=== PATIENT | male | born 1955 | race African-American/Black ===

== ENCOUNTER 2017-10-14 09:51 | Inpatient (IN) | payer MEDICAID ==
[~2017-10-14] VITALS: Ht 167.6 cm; Wt 57.2 kg
[~2017-10-14 09:51] MED LIST: ASPI-1160 PO; CLOP75TA16 PO; FURO-151 PO; LOSA25TA3 PO
[2017-10-14] MEDS ORDERED: IPRATROPIUM BROMIDE (0.02%) 0.5MG/2.5ML NEB HHN STA (10:04)
[2017-10-14] MEDS ORDERED: METHYLPREDNISOLONE SOD SUCC 125 MG/2 ML VIAL IV STA (10:04)
[2017-10-14] MEDS ORDERED: ASPIRIN 81MG TABLET PO STA (10:04)
[2017-10-14] MEDS ORDERED: ALBUTEROL (0.083%) 2.5MG/3ML NEB HHN STA (10:04)
[2017-10-14] MEDS ORDERED: ALBUTEROL (0.5%) 2.5MG/0.5ML NEB HHN ONE (10:19)
[2017-10-14 10:45] LABS: BASOPHILS % 0.8 % (0.0-2.0); EOSINOPHILS % 0.9 % (0.0-5.0); HEMATOCRIT. 40.9 % (42.0-52.0); LYMPHOCYTES % 23.7 % (20.0-50.0); MEAN CORPUSCULAR HEMOGLOBIN 25.9 pg (28.0-32.0); MEAN CORPUSCULAR VOLUME 81.5 fL (80.0-94.0); MEAN PLATELET VOLUME 10.3 fl (7.4-10.4); NEUTROPHILS % 67.6 % (40.0-76.0); PLATELET 153 x1000/uL (130-400); RED BLOOD CELL COUNT 5.02 mill/uL (4.7-6.1); RED CELL DISTRIBUTION WIDTH 15.2 % (11.6-14.6)
[2017-10-14 11:00] LABS: CHLORIDE 109 mEq/L (98-107)
[2017-10-14 11:14] LABS: INR 1.1; PARTIAL THROMBOPLASTIN TIME 26.9 sec (23.4-31.0); PROTHROMBIN TIME 11.6 sec (9.4-11.6)
[2017-10-14] MEDS ORDERED: FUROSEMIDE 40MG/4ML VIAL IV STA (11:16)
[2017-10-14] MEDS ORDERED: NITROGLYCERIN OINT 1GM/INCH UDPKT TD STA (11:16)
[2017-10-14] MEDS ORDERED: ENOXAPARIN 80MG/0.8ML SYR SUBCUT ONE (12:15)
[2017-10-14] MEDS ORDERED: CLONIDINE 0.1MG TABLET PO PRN (12:15)
[2017-10-14] MEDS ORDERED: DOCUSATE SODIUM 100MG CAPSULE PO PRN (12:15)
[2017-10-14] MEDS ORDERED: GUAIFENESIN 200MG/10ML SUGAR FREE UDC PO PRN (12:15)
[2017-10-14] MEDS ORDERED: ONDANSETRON HCL 4MG/2ML INJ IV PRN (12:15)
[2017-10-14] MEDS ORDERED: MAGNESIUM/ALUMINUM HYDROXIDE/SIMETHICONE 30ML UDC PO PRN (12:15)
[2017-10-14] MEDS ORDERED: ACETAMINOPHEN 325MG TABLET PO PRN (12:15)
[2017-10-14] MEDS ORDERED: DIPHENHYDRAMINE 50MG/ML VIAL IV PRN (12:15)
[2017-10-14] MEDS ORDERED: MORPHINE SULFATE 4 MG/ML CPJ (NOT FOR IM USE) IV PRN (12:15)
[2017-10-14] MEDS ORDERED: LORAZEPAM 0.5MG TABLET PO PRN (12:15)
[2017-10-14] MEDS ORDERED: NA PHOS,M-B/NA PHOS,DI-BA ENEMA 118ML PR PRN (12:15)
[2017-10-14 15:28] VITALS: BP 117/62
[2017-10-14 15:30] VITALS: BP 117/62
[2017-10-14 16:48] LABS: CHLORIDE 110 mEq/L (98-107)
[2017-10-14] MEDS: ENOXAPARIN 40MG/0.4ML SYR SUBCUT SCH (17:13)
[2017-10-14] MEDS: METHYLPREDNISOLONE SOD SUCC 125 MG/2 ML VIAL IV SCH (17:24)
[2017-10-14] MEDS ORDERED: LEVOFLOXACIN 500MG PREMIX 100 ML IV SCH (18:00)
[2017-10-14] MEDS: HYDROCODONE/ACETAMINOPHEN 5/325MG TABLET PO PRN (19:10)
[2017-10-14 20:00] VITALS: BP 126/70
[2017-10-14] MEDS: FAMOTIDINE 20MG TABLET PO SCH (20:39)
[2017-10-14 23:09] LABS: CLARITY URINE CLEAR (CLEAR); COLOR URINE YELLOW (YELLOW); KETONES URINE TRACE (NEGATIVE); LEUKOCYTE ESTERASE URINE NEGATIVE (NEGATIVE); NITRITE URINE NEGATIVE (NEGATIVE); OCCULT BLOOD URINE NEGATIVE (NEGATIVE); PH URINE 5.5 (4.5-8.0); PROTEIN URINE NEGATIVE (NEGATIVE); SPECIFIC GRAVITY URINE 1.031 (1.005-1.030); UROBILINOGEN URINE 0.2 E.U./dL (0.2-1.0)
[2017-10-14 23:19] LABS: *AMPHETAMINES SCREEN URINE NEGATIVE (NEGATIVE); *BARBITURATES SCREEN URINE NEGATIVE (NEGATIVE); *BENZODIAZEPINES SCREEN URINE NEGATIVE (NEGATIVE); *COCAINE SCREEN URINE PRESUMTIVE POSITIVE (NEGATIVE); CANNABINOID URINE SCREEN NEGATIVE (NEGATIVE); METHADONE URINE SCREEN NEGATIVE (NEGATIVE); OPIATES URINE SCREEN NEGATIVE (NEGATIVE); PHENCYCLIDINE URINE SCREEN NEGATIVE (NEGATIVE)
[2017-10-15] VITALS: BP 118/62
[2017-10-15] MEDS: METHYLPREDNISOLONE SOD SUCC 125 MG/2 ML VIAL IV SCH ×3 (01:24→12:18)
[2017-10-15 04:05] VITALS: BP 108/76
[2017-10-15] MEDS: IPRATROPIUM/ALBUTEROL 0.5-3(2.5)MG/3ML NEB INH PRN ×2 (05:47→08:27)
[2017-10-15] MEDS: BUDESONIDE 0.5MG/2ML NEB HHN SCH ×3 (05:47→20:21)
[2017-10-15 07:37] LABS: HEMATOCRIT. 35.6 % (42.0-52.0); HEMOGLOBIN. 11.7 g/dL (14.0-18.0); MEAN CORPUSCULAR HEMOGLOBIN 26.5 pg (28.0-32.0); MEAN CORPUSCULAR VOLUME 80.8 fL (80.0-94.0); MEAN PLATELET VOLUME 10.4 fl (7.4-10.4); PLATELET 147 x1000/uL (130-400); RED CELL DISTRIBUTION WIDTH 14.9 % (11.6-14.6)
[2017-10-15 07:56] LABS: CHLORIDE 108 mEq/L (98-107); HDL CHOLESTEROL 66 mg/dL (40-59); LDL CHOLESTEROL 93 mg/dL (5-100)
[2017-10-15 08:00] VITALS: BP 124/86
[2017-10-15] MEDS: HYDROCODONE/ACETAMINOPHEN 5/325MG TABLET PO PRN (08:36)
[2017-10-15] MEDS: FUROSEMIDE 40MG/4ML VIAL IV SCH (08:40)
[2017-10-15] MEDS: FAMOTIDINE 20MG TABLET PO SCH ×2 (09:22→20:28)
[2017-10-15] MEDS: ASPIRIN 81MG EC TABLET PO SCH (09:22)
[2017-10-15 12:00] VITALS: BP 102/61
[2017-10-15 14:58] LABS: PLATELET ESTIMATE NORMAL
[2017-10-15 16:00] VITALS: BP 113/75
[2017-10-15] MEDS: ENOXAPARIN 40MG/0.4ML SYR SUBCUT SCH (16:18)
[2017-10-15] MEDS: METHYLPREDNISOLONE SOD SUCC 40 MG/ML VIAL IV SCH (18:05)
[2017-10-15 20:00] VITALS: BP 102/59
[2017-10-15] MEDS: LEVOFLOXACIN 500MG PREMIX 100 ML IV SCH (20:29)
[2017-10-16] VITALS (7 sets, daily range): BP systolic 104–125; BP diastolic 61–89
[2017-10-16] MEDS: METHYLPREDNISOLONE SOD SUCC 40 MG/ML VIAL IV SCH ×2 (01:32→10:06)
[2017-10-16] MEDS: BUDESONIDE 0.5MG/2ML NEB HHN SCH ×2 (08:03→21:08)
[2017-10-16] MEDS: ASPIRIN 81MG EC TABLET PO SCH (10:06)
[2017-10-16] MEDS: FAMOTIDINE 20MG TABLET PO SCH ×2 (10:06→21:43)
[2017-10-16] MEDS: FUROSEMIDE 40MG/4ML VIAL IV SCH (10:07)
[2017-10-16] MEDS: PREDNISONE 20MG TABLET PO SCH (17:11)
[2017-10-16] MEDS: ENOXAPARIN 40MG/0.4ML SYR SUBCUT SCH (17:13)
[2017-10-16] MEDS: LEVOFLOXACIN 500MG PREMIX 100 ML IV SCH (21:43)
[2017-10-17 00:07] VITALS: BP 101/68
[2017-10-17 04:28] VITALS: BP 111/71
[2017-10-17 07:02] LABS: BASOPHILS % 0.1 % (0.0-2.0); HEMATOCRIT. 38.5 % (42.0-52.0); HEMOGLOBIN. 12.7 g/dL (14.0-18.0); MEAN CORPUSCULAR HEMOGLOBIN 26.7 pg (28.0-32.0); MONOCYTES % 7.8 % (2.0-8.0); NEUTROPHILS % 83.1 % (40.0-76.0); PLATELET 157 x1000/uL (130-400); RED BLOOD CELL COUNT 4.76 mill/uL (4.7-6.1); RED CELL DISTRIBUTION WIDTH 15.2 % (11.6-14.6)
[2017-10-17 07:20] LABS: CHLORIDE 104 mEq/L (98-107)
[2017-10-17] MEDS: BUDESONIDE 0.5MG/2ML NEB HHN SCH (08:10)
[2017-10-17] MEDS: IPRATROPIUM/ALBUTEROL 0.5-3(2.5)MG/3ML NEB INH PRN (08:11)
[2017-10-17] MEDS: ASPIRIN 81MG EC TABLET PO SCH (08:42)
[2017-10-17] MEDS: FAMOTIDINE 20MG TABLET PO SCH (08:42)
[2017-10-17] MEDS: PREDNISONE 20MG TABLET PO SCH (08:43)
[2017-10-17] MEDS: FUROSEMIDE 40MG/4ML VIAL IV SCH (08:43)
[2017-10-17 13:45] VITALS: BP 105/65
[2018-01-22] MEDS ORDERED: ALBU2.5V13 NEB (12:15)
[2018-01-22] MEDS ORDERED: P50 PO (12:15)
[2018-01-22] MEDS ORDERED: FLUT1DIS3 INH (12:15)
[2018-01-22] MEDS ORDERED: LEVO500T2 PO (17:38)
[2018-05-08] MEDS ORDERED: FURO10VI3 PO (12:01)
== END 2017-10-17 15:00 | disposition home or self-care (01) | DRG 816 ==
LOC: ER 10:09 → 6WST 11:44 → EDBEDREQ 11:45 → ENRESERV 13:18 → 6WST 15:18
PROVIDERS: ADMIT Internal Medicine; ATTEND Internal Medicine
DX: T40.5X1A Poisoning by cocaine, accidental (unintentional), initial encounter (principal); J96.00 Acute respiratory failure, unspecified whether with hypoxia or hypercapnia; I50.43 Acute on chronic combined systolic (congestive) and diastolic (congestive) heart failure; E46 Unspecified protein-calorie malnutrition; J68.0 Bronchitis and pneumonitis due to chemicals, gases, fumes and vapors; I11.0 Hypertensive heart disease with heart failure; E11.65 Type 2 diabetes mellitus with hyperglycemia; F17.200 Nicotine dependence, unspecified, uncomplicated; I25.10 Atherosclerotic heart disease of native coronary artery without angina pectoris; Z79.899 Other long term (current) drug therapy; I25.2 Old myocardial infarction; Z79.82 Long term (current) use of aspirin; Y92.89 Other specified places as the place of occurrence of the external cause; Z68.20 Body mass index [BMI] 20.0-20.9, adult
CPT/HCPCS: 36415; 71045; 80048; 80061; 80305; 83036; 83880; 84484; 93005; 94640; 96374; 99291; J1650; J1940; J1956; J2920; J2930; J7040; J7512; J7611; J7620; J7626

== ENCOUNTER 2018-05-31 13:05 | Inpatient (IN) | payer MEDICAID ==
[~2018-05-31] VITALS: Ht 175.3 cm; Wt 59.0 kg
[~2018-05-31 13:05] MED LIST changes: +ALBU2.5V13 NEB; +FLUT1DIS3 INH; -FURO-151 PO; +FURO10VI3 PO; -LOSA25TA3 PO
[2018-05-31] MEDS ORDERED: IPRATROPIUM BROMIDE (0.02%) 0.5MG/2.5ML NEB HHN STA (13:42)
[2018-05-31] MEDS ORDERED: METHYLPREDNISOLONE SOD SUCC 125 MG/2 ML VIAL IV STA (13:42)
[2018-05-31] MEDS ORDERED: ALBUTEROL (0.083%) 2.5MG/3ML NEB HHN STA (13:42)
[2018-05-31] MEDS ORDERED: ASPIRIN 81MG TABLET PO ONE (15:00)
[2018-05-31] MEDS ORDERED: FUROSEMIDE 20MG/2ML VIAL IVP ONE (15:00)
[2018-05-31 15:20] LABS: CHLORIDE 109 mEq/L (98-107)
[2018-05-31 15:24] LABS: BASOPHILS % 0.9 % (0.0-2.0); EOSINOPHILS % 2.4 % (0.0-5.0); HEMATOCRIT. 33.8 % (42.0-52.0); LYMPHOCYTES % 20.9 % (20.0-50.0); MEAN CORPUSCULAR HEMOGLOBIN 26.1 pg (28.0-32.0); MEAN CORPUSCULAR VOLUME 79.9 fL (80.0-94.0); MEAN PLATELET VOLUME 9.9 fl (7.4-10.4); MONOCYTES % 8.4 % (2.0-8.0); NEUTROPHILS % 67.4 % (40.0-76.0); PLATELET 138 x1000/uL (130-400); RED BLOOD CELL COUNT 4.23 mill/uL (4.7-6.1); RED CELL DISTRIBUTION WIDTH 16.2 % (11.6-14.6)
[2018-05-31] MEDS ORDERED: KCL 20MEQ/100ML PREMIX 100 ML IV ONE (16:00)
[2018-05-31] MEDS ORDERED: POTASSIUM CHLORIDE 20MEQ TABLET SR PO ONE (16:00)
[2018-05-31 18:15] VITALS: BP 115/81
[2018-05-31 20:00] VITALS: BP 106/61
[2018-05-31] MEDS ORDERED: MAGNESIUM/ALUMINUM HYDROXIDE/SIMETHICONE 30ML UDC PO PRN (21:00)
[2018-05-31] MEDS ORDERED: ACETAMINOPHEN 325MG TABLET PO PRN (21:00)
[2018-05-31] MEDS ORDERED: CLONIDINE 0.1MG TABLET PO PRN (21:00)
[2018-05-31] MEDS ORDERED: MAGNESIUM HYDROXIDE 400MG/5ML 30ML UDC PO PRN (21:00)
[2018-05-31] MEDS ORDERED: HYDROCODONE/ACETAMINOPHEN 5/325MG TABLET PO PRN (21:00)
[2018-05-31] MEDS ORDERED: GUAIFENESIN 200MG/10ML SUGAR FREE UDC PO PRN (21:00)
[2018-05-31] MEDS ORDERED: TEMAZEPAM 15MG CAPSULE PO PRN (21:00)
[2018-05-31] MEDS ORDERED: ONDANSETRON HCL 4MG/2ML INJ IV PRN (21:00)
[2018-05-31] MEDS ORDERED: DIPHENHYDRAMINE 50MG/ML VIAL IV PRN (21:00)
[2018-05-31] MEDS ORDERED: IPRATROPIUM/ALBUTEROL 0.5-3(2.5)MG/3ML NEB INH PRN (21:00)
[2018-05-31] MEDS ORDERED: MAGNESIUM 2 G PREMIX 50 ML IV ONE (21:30)
[2018-05-31] MEDS ORDERED: FUROSEMIDE 40MG/4ML VIAL IVP SCH (21:30)
[2018-05-31] MEDS: ATORVASTATIN CALCIUM 20MG TABLET PO SCH (22:09)
[2018-05-31] MEDS: POTASSIUM CHLORIDE 20MEQ TABLET SR PO SCH ×3 (22:10→23:16)
[2018-05-31] MEDS: GUAIFENESIN 600MG ER TABLET PO SCH (22:10)
[2018-05-31] MEDS: FAMOTIDINE 20MG TABLET PO SCH (22:10)
[2018-05-31] MEDS: ENOXAPARIN 40MG/0.4ML SYR SUBCUT SCH (22:11)
[2018-05-31] MEDS: SODIUM CHLORIDE 0.9% INJ 3ML FLUSH IVF SCH (22:11)
[2018-05-31] MEDS: METHYLPREDNISOLONE SOD SUCC 40 MG/ML VIAL IV SCH (23:16)
[2018-06-01] VITALS: BP 94/60
[2018-06-01] MEDS: LEVOFLOXACIN 500MG PREMIX 100 ML IV SCH ×2 (00:11→21:22)
[2018-06-01] MEDS: BUDESONIDE 0.5MG/2ML NEB HHN SCH ×3 (02:12→20:44)
[2018-06-01] MEDS: IPRATROPIUM/ALBUTEROL 0.5-3(2.5)MG/3ML NEB HHN SCH ×4 (02:13→20:44)
[2018-06-01 04:08] VITALS: BP 112/72
[2018-06-01 06:09] LABS: BASOPHILS % 0.1 % (0.0-2.0); HEMATOCRIT. 33.7 % (42.0-52.0); HEMOGLOBIN. 11.1 g/dL (14.0-18.0); LYMPHOCYTES % 7.5 % (20.0-50.0); MEAN CORPUSCULAR VOLUME 79.1 fL (80.0-94.0); MEAN PLATELET VOLUME 10.5 fl (7.4-10.4); MONOCYTES % 3.1 % (2.0-8.0); NEUTROPHILS % 89.3 % (40.0-76.0); PLATELET 136 x1000/uL (130-400); RED BLOOD CELL COUNT 4.26 mill/uL (4.7-6.1)
[2018-06-01 06:15] LABS: CHLORIDE 113 mEq/L (98-107)
[2018-06-01] MEDS: FUROSEMIDE 40MG/4ML VIAL IVP SCH ×2 (06:15→17:49)
[2018-06-01] MEDS: SODIUM CHLORIDE 0.9% INJ 3ML FLUSH IVF SCH ×3 (06:15→21:24)
[2018-06-01] MEDS: METHYLPREDNISOLONE SOD SUCC 40 MG/ML VIAL IV SCH ×3 (06:15→21:22)
[2018-06-01 07:42] VITALS: BP 119/88
[2018-06-01] MEDS: PROMETHAZINE/DEXTROMETHORPHAN 6.25-15MG/5ML BOTTLE 120ML PO PRN ×2 (08:48→17:49)
[2018-06-01] MEDS: CLOPIDOGREL 75MG TABLET PO SCH (08:48)
[2018-06-01] MEDS: GUAIFENESIN 600MG ER TABLET PO SCH ×2 (08:48→21:22)
[2018-06-01] MEDS: ASPIRIN 81MG EC TABLET PO SCH (08:48)
[2018-06-01] MEDS ORDERED: LOSARTAN POTASSIUM 25 MG TABLET PO SCH (09:00)
[2018-06-01] MEDS ORDERED: KETOROLAC 30MG/ML VIAL IV PRN (10:00)
[2018-06-01 12:00] VITALS: BP 104/68
[2018-06-01 16:00] VITALS: BP 108/73
[2018-06-01 17:32] LABS: CHLORIDE 110 mEq/L (98-107)
[2018-06-01 20:00] VITALS: BP 113/80
[2018-06-01] MEDS: FAMOTIDINE 20MG TABLET PO SCH (21:22)
[2018-06-01] MEDS: ATORVASTATIN CALCIUM 20MG TABLET PO SCH (21:22)
[2018-06-01] MEDS: ENOXAPARIN 40MG/0.4ML SYR SUBCUT SCH (21:23)
[2018-06-01 22:16] LABS: *BARBITURATES SCREEN URINE NEGATIVE (NEGATIVE); *BENZODIAZEPINES SCREEN URINE NEGATIVE (NEGATIVE); *COCAINE SCREEN URINE PRESUMTIVE POSITIVE (NEGATIVE); CANNABINOID URINE SCREEN NEGATIVE (NEGATIVE); METHADONE URINE SCREEN NEGATIVE (NEGATIVE); OPIATES URINE SCREEN NEGATIVE (NEGATIVE); PHENCYCLIDINE URINE SCREEN NEGATIVE (NEGATIVE)
[2018-06-01 22:17] LABS: *AMPHETAMINES SCREEN URINE NEGATIVE (NEGATIVE)
[2018-06-02] VITALS: BP 105/70
[2018-06-02] MEDS: IPRATROPIUM/ALBUTEROL 0.5-3(2.5)MG/3ML NEB HHN SCH ×4 (01:05→19:59)
[2018-06-02 04:00] VITALS: BP 115/87
[2018-06-02] MEDS: METHYLPREDNISOLONE SOD SUCC 40 MG/ML VIAL IV SCH ×3 (05:59→22:07)
[2018-06-02] MEDS: SODIUM CHLORIDE 0.9% INJ 3ML FLUSH IVF SCH ×3 (06:00→22:09)
[2018-06-02] MEDS: FUROSEMIDE 40MG/4ML VIAL IVP SCH ×2 (06:42→17:15)
[2018-06-02 06:48] LABS: HEMATOCRIT. 33.4 % (42.0-52.0); MEAN CORPUSCULAR HEMOGLOBIN 26.1 pg (28.0-32.0); MEAN CORPUSCULAR VOLUME 79.5 fL (80.0-94.0); MEAN PLATELET VOLUME 10.6 fl (7.4-10.4); PLATELET 151 x1000/uL (130-400); RED CELL DISTRIBUTION WIDTH 16.3 % (11.6-14.6)
[2018-06-02 08:21] LABS: CHLORIDE 106 mEq/L (98-107)
[2018-06-02] MEDS: BUDESONIDE 0.5MG/2ML NEB HHN SCH ×2 (08:31→19:58)
[2018-06-02] MEDS: CLOPIDOGREL 75MG TABLET PO SCH (09:05)
[2018-06-02] MEDS: LOSARTAN POTASSIUM 25 MG TABLET PO SCH (09:07)
[2018-06-02] MEDS: ASPIRIN 81MG EC TABLET PO SCH (09:07)
[2018-06-02] MEDS: GUAIFENESIN 600MG ER TABLET PO SCH ×2 (09:07→20:37)
[2018-06-02 09:20] LABS: PLATELET ESTIMATE NORMAL
[2018-06-02 12:00] VITALS: BP 103/77
[2018-06-02 16:00] VITALS: BP 104/66
[2018-06-02 20:00] VITALS: BP 102/65
[2018-06-02] MEDS: ATORVASTATIN CALCIUM 20MG TABLET PO SCH (20:37)
[2018-06-02] MEDS: LEVOFLOXACIN 500MG PREMIX 100 ML IV SCH (20:37)
[2018-06-02] MEDS: FAMOTIDINE 20MG TABLET PO SCH (20:37)
[2018-06-02] MEDS: ENOXAPARIN 40MG/0.4ML SYR SUBCUT SCH (20:37)
[2018-06-03] VITALS: BP 102/65
[2018-06-03] MEDS: IPRATROPIUM/ALBUTEROL 0.5-3(2.5)MG/3ML NEB HHN SCH ×2 (01:15→07:58)
[2018-06-03 04:00] VITALS: BP 104/67
[2018-06-03] MEDS: SODIUM CHLORIDE 0.9% INJ 3ML FLUSH IVF SCH ×2 (06:12→13:46)
[2018-06-03] MEDS: METHYLPREDNISOLONE SOD SUCC 40 MG/ML VIAL IV SCH ×2 (06:12→13:46)
[2018-06-03] MEDS: FUROSEMIDE 40MG/4ML VIAL IVP SCH (06:17)
[2018-06-03] MEDS: BUDESONIDE 0.5MG/2ML NEB HHN SCH (07:58)
[2018-06-03 08:00] VITALS: BP 100/61
[2018-06-03] MEDS: GUAIFENESIN 600MG ER TABLET PO SCH (08:59)
[2018-06-03] MEDS: CLOPIDOGREL 75MG TABLET PO SCH (08:59)
[2018-06-03] MEDS: ASPIRIN 81MG EC TABLET PO SCH (08:59)
[2018-06-03] MEDS: LOSARTAN POTASSIUM 25 MG TABLET PO SCH (09:00)
[2018-06-03] MEDS ORDERED: LOSA25TA12 MT (11:22)
[2018-06-03] MEDS ORDERED: ATOR20TA65 MT (11:22)
[2018-06-03 12:00] VITALS: BP 99/66
[2018-06-03 14:15] VITALS: BP 108/64
== END 2018-06-03 15:40 | disposition home or self-care (01) | DRG 139 ==
LOC: ER 13:05 → 6WST 16:21 → ENRESERV 17:07
PROVIDERS: ADMIT Internal Medicine; ATTEND Internal Medicine
DX: J18.9 Pneumonia, unspecified organism (principal); I50.23 Acute on chronic systolic (congestive) heart failure; E44.0 Moderate protein-calorie malnutrition; J44.0 Chronic obstructive pulmonary disease with (acute) lower respiratory infection; I42.0 Dilated cardiomyopathy; I11.0 Hypertensive heart disease with heart failure; J44.1 Chronic obstructive pulmonary disease with (acute) exacerbation; E78.00 Pure hypercholesterolemia, unspecified; F19.10 Other psychoactive substance abuse, uncomplicated; F14.90 Cocaine use, unspecified, uncomplicated; E87.6 Hypokalemia; F17.200 Nicotine dependence, unspecified, uncomplicated; I25.10 Atherosclerotic heart disease of native coronary artery without angina pectoris; Z82.49 Family history of ischemic heart disease and other diseases of the circulatory system; Z91.19 Patient's noncompliance with other medical treatment and regimen; Z79.51 Long term (current) use of inhaled steroids; Z79.82 Long term (current) use of aspirin; Z79.899 Other long term (current) drug therapy; Z68.1 Body mass index [BMI] 19.9 or less, adult
CPT/HCPCS: 36415; 71045; 80048; 80053; 80305; 83735; 83880; 84484; 85025; 93005; 93970; 94640; 96361; 96374; 99285; J1650; J1940; J1956; J2920; J2930; J3480; J7040; J7611; J7620; J7626

== ENCOUNTER 2018-06-11 06:13 | Inpatient (IN) | payer MEDICAID ==
[~2018-06-11] VITALS: Ht 167.6 cm; Wt 54.9 kg
[~2018-06-11 06:13] MED LIST changes: +ATOR20TA65 MT; +LOSA25TA12 MT
[2018-06-11] MEDS ORDERED: IPRATROPIUM BROMIDE (0.02%) 0.5MG/2.5ML NEB HHN STA (06:29)
[2018-06-11] MEDS ORDERED: MAGNESIUM 2 G PREMIX 50 ML IV STA (06:29)
[2018-06-11] MEDS ORDERED: METHYLPREDNISOLONE SOD SUCC 125 MG/2 ML VIAL IV STA (06:29)
[2018-06-11] MEDS ORDERED: ALBUTEROL (0.083%) 2.5MG/3ML NEB HHN STA (06:29)
[2018-06-11] MEDS ORDERED: FUROSEMIDE 40MG/4ML VIAL IVP ONE (06:30)
[2018-06-11] MEDS ORDERED: ASPIRIN 81MG TABLET PO ONE (07:00)
[2018-06-11 07:27] LABS: BASOPHILS % 0.4 % (0.0-2.0); EOSINOPHILS % 1.2 % (0.0-5.0); HEMATOCRIT. 33.8 % (42.0-52.0); HEMOGLOBIN. 10.9 g/dL (14.0-18.0); MEAN CORPUSCULAR VOLUME 80.1 fL (80.0-94.0); MONOCYTES % 8.4 % (2.0-8.0); PLATELET 165 x1000/uL (130-400); RED BLOOD CELL COUNT 4.21 mill/uL (4.7-6.1)
[2018-06-11 07:34] LABS: PARTIAL THROMBOPLASTIN TIME 27.3 sec (23.4-31.0); PROTHROMBIN TIME 10.5 sec (9.1-11.1)
[2018-06-11 07:42] LABS: CLARITY URINE CLEAR (CLEAR); COLOR URINE YELLOW (YELLOW); KETONES URINE NEGATIVE (NEGATIVE); LEUKOCYTE ESTERASE URINE NEGATIVE (NEGATIVE); NITRITE URINE NEGATIVE (NEGATIVE); OCCULT BLOOD URINE NEGATIVE (NEGATIVE); PROTEIN URINE NEGATIVE (NEGATIVE); SPECIFIC GRAVITY URINE 1.008 (1.005-1.030); UROBILINOGEN URINE 0.2 E.U./dL (0.2-1.0)
[2018-06-11 07:54] LABS: *AMPHETAMINES SCREEN URINE NEGATIVE (NEGATIVE); *BARBITURATES SCREEN URINE NEGATIVE (NEGATIVE); *BENZODIAZEPINES SCREEN URINE NEGATIVE (NEGATIVE); *COCAINE SCREEN URINE PRESUMTIVE POSITIVE (NEGATIVE); CANNABINOID URINE SCREEN NEGATIVE (NEGATIVE); METHADONE URINE SCREEN NEGATIVE (NEGATIVE); OPIATES URINE SCREEN NEGATIVE (NEGATIVE); PHENCYCLIDINE URINE SCREEN NEGATIVE (NEGATIVE)
[2018-06-11 07:55] LABS: CHLORIDE 112 mEq/L (98-107); ETHANOL BLOOD < 10 mg/dL
[2018-06-11] MEDS ORDERED: MEDICATION NOT ON FORMULARY EA (Fluticasone/Salmeterol (Advair 250-50 Diskus) 1 PUFF) INH SCH (10:15)
[2018-06-11 16:28] LABS: CREATINE KINASE MB FRACTION 1.8 ng/mL (0.5-3.6)
[2018-06-11] MEDS ORDERED: POTASSIUM CHLORIDE 20MEQ TABLET SR PO NR (16:36)
[2018-06-11] MEDS ORDERED: ONDANSETRON HCL 4MG/2ML INJ IV PRN (18:30)
[2018-06-11] MEDS ORDERED: ACETAMINOPHEN 325MG TABLET PO PRN (18:30)
[2018-06-11] MEDS ORDERED: IPRATROPIUM/ALBUTEROL 0.5-3(2.5)MG/3ML NEB INH PRN (18:30)
[2018-06-11] MEDS ORDERED: HYDROCODONE/ACETAMINOPHEN 5/325MG TABLET PO PRN (18:30)
[2018-06-11] MEDS ORDERED: LORAZEPAM 0.5MG TABLET PO PRN (18:30)
[2018-06-11] MEDS ORDERED: HYDROCODONE/ACETAMINOPHEN 10/325MG TABLET PO PRN (18:30)
[2018-06-11] MEDS ORDERED: DOCUSATE SODIUM 100MG CAPSULE PO PRN (19:02)
[2018-06-11] MEDS: ATORVASTATIN CALCIUM 20MG TABLET PO SCH (19:53)
[2018-06-11] MEDS: LOSARTAN POTASSIUM 25 MG TABLET PO SCH (19:53)
[2018-06-11 20:00] VITALS: BP 121/74
[2018-06-12 00:32] VITALS: BP 125/79
[2018-06-12 04:00] VITALS: BP 110/74
[2018-06-12 06:36] LABS: BASOPHILS % 0.4 % (0.0-2.0); EOSINOPHILS % 0.1 % (0.0-5.0); HEMATOCRIT. 32.1 % (42.0-52.0); HEMOGLOBIN. 10.5 g/dL (14.0-18.0); LYMPHOCYTES % 9.9 % (20.0-50.0); MEAN CORPUSCULAR HEMOGLOBIN 25.9 pg (28.0-32.0); MEAN CORPUSCULAR VOLUME 79.4 fL (80.0-94.0); MEAN PLATELET VOLUME 10.4 fl (7.4-10.4); MONOCYTES % 7.2 % (2.0-8.0); NEUTROPHILS % 82.4 % (40.0-76.0); PLATELET 171 x1000/uL (130-400); RED BLOOD CELL COUNT 4.05 mill/uL (4.7-6.1); RED CELL DISTRIBUTION WIDTH 16.1 % (11.6-14.6)
[2018-06-12 08:28] VITALS: BP 119/73
[2018-06-12] MEDS: CLOPIDOGREL 75MG TABLET PO SCH (08:30)
[2018-06-12] MEDS: LOSARTAN POTASSIUM 25 MG TABLET PO SCH (08:30)
[2018-06-12] MEDS: ASPIRIN 81MG TABLET PO SCH (08:31)
[2018-06-12] MEDS: ALBUTEROL (0.083%) 2.5MG/3ML NEB HHN SCH ×3 (08:35→15:15)
[2018-06-12] MEDS: BUDESONIDE 0.5MG/2ML NEB HHN SCH ×2 (08:35→21:14)
[2018-06-12] MEDS ORDERED: FUROSEMIDE 40MG/4ML VIAL IVP SCH (09:00)
[2018-06-12 09:37] LABS: CHLORIDE 104 mEq/L (98-107)
[2018-06-12 12:00] VITALS: BP 112/73
[2018-06-12 16:00] VITALS: BP 117/79
[2018-06-12] MEDS: FUROSEMIDE 40MG/4ML VIAL IVP SCH (17:15)
[2018-06-12] MEDS ORDERED: BENZONATATE 100MG CAPSULE PO PRN (17:30)
[2018-06-12 20:00] VITALS: BP 108/73
[2018-06-12] MEDS: GUAIFENESIN 600MG ER TABLET PO SCH (20:25)
[2018-06-12] MEDS: LEVOFLOXACIN 500MG PREMIX 100 ML IV SCH (20:25)
[2018-06-12] MEDS: ATORVASTATIN CALCIUM 20MG TABLET PO SCH (20:25)
[2018-06-13] VITALS: BP 111/75
[2018-06-13 04:00] VITALS: BP 111/79
[2018-06-13] MEDS: FUROSEMIDE 40MG/4ML VIAL IVP SCH ×2 (06:15→16:35)
[2018-06-13 06:47] LABS: BASOPHILS % 0.5 % (0.0-2.0); EOSINOPHILS % 0.6 % (0.0-5.0); HEMATOCRIT. 31.6 % (42.0-52.0); HEMOGLOBIN. 10.4 g/dL (14.0-18.0); LYMPHOCYTES % 10.7 % (20.0-50.0); MEAN CORPUSCULAR HEMOGLOBIN 26.3 pg (28.0-32.0); MEAN CORPUSCULAR VOLUME 79.6 fL (80.0-94.0); MEAN PLATELET VOLUME 9.6 fl (7.4-10.4); MONOCYTES % 5.3 % (2.0-8.0); NEUTROPHILS % 82.9 % (40.0-76.0); PLATELET 162 x1000/uL (130-400); RED BLOOD CELL COUNT 3.97 mill/uL (4.7-6.1); RED CELL DISTRIBUTION WIDTH 16.3 % (11.6-14.6)
[2018-06-13] MEDS: ALBUTEROL (0.083%) 2.5MG/3ML NEB HHN SCH ×3 (07:16→20:12)
[2018-06-13] MEDS: BUDESONIDE 0.5MG/2ML NEB HHN SCH ×2 (07:16→20:12)
[2018-06-13 07:47] LABS: CHLORIDE 107 mEq/L (98-107)
[2018-06-13 08:00] VITALS: BP 138/75
[2018-06-13] MEDS: ASPIRIN 81MG TABLET PO SCH (08:37)
[2018-06-13] MEDS: GUAIFENESIN 600MG ER TABLET PO SCH ×2 (08:37→20:29)
[2018-06-13] MEDS: CLOPIDOGREL 75MG TABLET PO SCH (08:37)
[2018-06-13] MEDS: LOSARTAN POTASSIUM 25 MG TABLET PO SCH (08:38)
[2018-06-13 12:00] VITALS: BP 100/45
[2018-06-13 16:00] VITALS: BP 114/63
[2018-06-13] MEDS ORDERED: IPRATROPIUM/ALBUTEROL 0.5-3(2.5)MG/3ML NEB INH SCH (16:30)
[2018-06-13 20:00] VITALS: BP 122/70
[2018-06-13] MEDS: ATORVASTATIN CALCIUM 20MG TABLET PO SCH (20:29)
[2018-06-13] MEDS: LEVOFLOXACIN 500MG PREMIX 100 ML IV SCH (20:29)
[2018-06-14] VITALS: BP 112/70
[2018-06-14] MEDS: IPRATROPIUM/ALBUTEROL 0.5-3(2.5)MG/3ML NEB INH SCH ×3 (01:11→13:33)
[2018-06-14 04:00] VITALS: BP 101/65
[2018-06-14 06:39] LABS: BASOPHILS % 0.7 % (0.0-2.0); EOSINOPHILS % 1.9 % (0.0-5.0); HEMATOCRIT. 36.1 % (42.0-52.0); HEMOGLOBIN. 11.6 g/dL (14.0-18.0); LYMPHOCYTES % 19.1 % (20.0-50.0); MEAN CORPUSCULAR HEMOGLOBIN 25.7 pg (28.0-32.0); MEAN CORPUSCULAR VOLUME 79.7 fL (80.0-94.0); MEAN PLATELET VOLUME 9.6 fl (7.4-10.4); MONOCYTES % 8.5 % (2.0-8.0); NEUTROPHILS % 69.8 % (40.0-76.0); PLATELET 169 x1000/uL (130-400); RED BLOOD CELL COUNT 4.53 mill/uL (4.7-6.1); RED CELL DISTRIBUTION WIDTH 16.2 % (11.6-14.6)
[2018-06-14] MEDS: FUROSEMIDE 40MG/4ML VIAL IVP SCH (06:45)
[2018-06-14 08:06] LABS: CHLORIDE 107 mEq/L (98-107)
[2018-06-14 08:30] VITALS: BP 93/54
[2018-06-14] MEDS: GUAIFENESIN 600MG ER TABLET PO SCH (08:35)
[2018-06-14] MEDS: CLOPIDOGREL 75MG TABLET PO SCH (08:35)
[2018-06-14] MEDS: ASPIRIN 81MG TABLET PO SCH (08:35)
[2018-06-14] MEDS: LOSARTAN POTASSIUM 25 MG TABLET PO SCH (09:00)
[2018-06-14] MEDS: BUDESONIDE 0.5MG/2ML NEB HHN SCH (09:20)
[2018-06-14] MEDS ORDERED: FURO-151 MT (10:48)
[2018-06-14] MEDS ORDERED: GUAI-740 MT (10:48)
[2018-06-14 12:00] VITALS: BP 108/80
[2018-06-14 12:42] VITALS: BP 108/80
== END 2018-06-14 15:49 | disposition home or self-care (01) | DRG 194 ==
LOC: ER 06:13 → 8WST 07:35 → EDBEDREQ 07:39 → ENRESERV 14:26
PROVIDERS: ADMIT Internal Medicine; ATTEND Internal Medicine
DX: I11.0 Hypertensive heart disease with heart failure (principal); J96.01 Acute respiratory failure with hypoxia; E43 Unspecified severe protein-calorie malnutrition; E87.2 Acidosis; I42.0 Dilated cardiomyopathy; F14.90 Cocaine use, unspecified, uncomplicated; J44.9 Chronic obstructive pulmonary disease, unspecified; F19.10 Other psychoactive substance abuse, uncomplicated; D64.9 Anemia, unspecified; D72.829 Elevated white blood cell count, unspecified; J22 Unspecified acute lower respiratory infection; Z82.49 Family history of ischemic heart disease and other diseases of the circulatory system; Z91.14 Patient's other noncompliance with medication regimen; Z79.02 Long term (current) use of antithrombotics/antiplatelets; Z79.899 Other long term (current) drug therapy; I50.23 Acute on chronic systolic (congestive) heart failure; M94.0 Chondrocostal junction syndrome [Tietze]
CPT/HCPCS: 36415; 71045; 80048; 80053; 80305; 81003; 82550; 82553; 83605; 83735; 83880; 84145; 84484; 85025; 85610; 85730; 87040; 87086; 87804; 93005; 94640; 94644; 96374; 96375; 99291; G0482; J1940; J1956; J2930; J3475; J7040; J7611; J7620; J7626

== ENCOUNTER 2018-06-24 08:36 | Inpatient (IN) | payer MEDICAID ==
[~2018-06-24] VITALS: Ht 170.2 cm; Wt 55.3 kg
[~2018-06-24 08:36] MED LIST changes: +FURO-151 MT; -FURO10VI3 PO; +GUAI-740 MT
[2018-06-24] MEDS ORDERED: METHYLPREDNISOLONE SOD SUCC 125 MG/2 ML VIAL IV STA (09:02)
[2018-06-24] MEDS ORDERED: IPRATROPIUM/ALBUTEROL 0.5-3(2.5)MG/3ML NEB HHN ONE (09:15)
[2018-06-24 09:53] LABS: BASOPHILS % 0.6 % (0.0-2.0); EOSINOPHILS % 3.6 % (0.0-5.0); HEMATOCRIT. 37.3 % (42.0-52.0); LYMPHOCYTES % 16.6 % (20.0-50.0); MEAN CORPUSCULAR HEMOGLOBIN 25.7 pg (28.0-32.0); MEAN CORPUSCULAR VOLUME 79.8 fL (80.0-94.0); MEAN PLATELET VOLUME 10.2 fl (7.4-10.4); MONOCYTES % 4.8 % (2.0-8.0); NEUTROPHILS % 74.4 % (40.0-76.0); PLATELET 180 x1000/uL (130-400); RED BLOOD CELL COUNT 4.68 mill/uL (4.7-6.1); RED CELL DISTRIBUTION WIDTH 16.2 % (11.6-14.6)
[2018-06-24 09:58] LABS: INR 1.1; PARTIAL THROMBOPLASTIN TIME 26.1 sec (23.4-31.0); PROTHROMBIN TIME 10.7 sec (9.1-11.1)
[2018-06-24 10:01] LABS: CHLORIDE 106 mEq/L (98-107)
[2018-06-24 11:00] LABS: CLARITY URINE CLEAR (CLEAR); COLOR URINE YELLOW (YELLOW); KETONES URINE NEGATIVE (NEGATIVE); LEUKOCYTE ESTERASE URINE NEGATIVE (NEGATIVE); NITRITE URINE NEGATIVE (NEGATIVE); OCCULT BLOOD URINE NEGATIVE (NEGATIVE); PH URINE 8.5 (4.5-8.0); PROTEIN URINE TRACE (NEGATIVE); SPECIFIC GRAVITY URINE 1.021 (1.005-1.030)
[2018-06-24] MEDS ORDERED: IPRATROPIUM/ALBUTEROL 0.5-3(2.5)MG/3ML NEB HHN PRN (13:00)
[2018-06-24] MEDS ORDERED: BUDESONIDE 0.5MG/2ML NEB HHN SCH (13:00)
[2018-06-24] MEDS ORDERED: FUROSEMIDE 100MG/10ML VIAL IVP SCH (13:00)
[2018-06-24] MEDS: POTASSIUM CHLORIDE 20MEQ TABLET SR PO SCH (13:00)
[2018-06-24 15:30] LABS: CREATINE KINASE MB FRACTION 1.3 ng/mL (0.5-3.6)
[2018-06-24 16:23] VITALS: BP 126/76
[2018-06-24] MEDS: FUROSEMIDE 100MG/10ML VIAL IVP SCH (17:15)
[2018-06-24] MEDS: MONTELUKAST SODIUM 10MG TABLET PO SCH (17:32)
[2018-06-24 20:00] VITALS: BP 130/84
[2018-06-24] MEDS: ATORVASTATIN CALCIUM 20MG TABLET PO SCH (21:06)
[2018-06-24] MEDS: CARVEDILOL 6.25 MG TABLET PO SCH (21:06)
[2018-06-24] MEDS: BUDESONIDE 0.5MG/2ML NEB HHN SCH (21:43)
[2018-06-24] MEDS: IPRATROPIUM/ALBUTEROL 0.5-3(2.5)MG/3ML NEB HHN SCH (21:44)
[2018-06-25] VITALS: BP 114/72
[2018-06-25] MEDS: IPRATROPIUM/ALBUTEROL 0.5-3(2.5)MG/3ML NEB HHN SCH ×5 (02:25→21:10)
[2018-06-25] MEDS: BENZONATATE 100MG CAPSULE PO PRN (03:15)
[2018-06-25 04:00] VITALS: BP 117/84
[2018-06-25] MEDS: ACETAMINOPHEN 325MG TABLET PO PRN (05:34)
[2018-06-25] MEDS: POTASSIUM CHLORIDE 20MEQ TABLET SR PO SCH (06:42)
[2018-06-25] MEDS: FUROSEMIDE 100MG/10ML VIAL IVP SCH ×3 (06:48→16:31)
[2018-06-25 07:03] LABS: BASOPHILS % 0.3 % (0.0-2.0); EOSINOPHILS % 0.1 % (0.0-5.0); HEMATOCRIT. 33.6 % (42.0-52.0); HEMOGLOBIN. 10.8 g/dL (14.0-18.0); LYMPHOCYTES % 12.6 % (20.0-50.0); MEAN CORPUSCULAR HEMOGLOBIN 25.3 pg (28.0-32.0); MEAN CORPUSCULAR VOLUME 79.1 fL (80.0-94.0); MEAN PLATELET VOLUME 10.3 fl (7.4-10.4); MONOCYTES % 6.1 % (2.0-8.0); NEUTROPHILS % 80.9 % (40.0-76.0); PLATELET 173 x1000/uL (130-400); RED BLOOD CELL COUNT 4.25 mill/uL (4.7-6.1); RED CELL DISTRIBUTION WIDTH 16.1 % (11.6-14.6)
[2018-06-25 07:15] LABS: CHLORIDE 105 mEq/L (98-107)
[2018-06-25 08:00] VITALS: BP 138/94
[2018-06-25] MEDS: BUDESONIDE 0.5MG/2ML NEB HHN SCH ×2 (08:44→21:10)
[2018-06-25] MEDS: CARVEDILOL 6.25 MG TABLET PO SCH ×2 (09:37→20:47)
[2018-06-25] MEDS: LOSARTAN POTASSIUM 25 MG TABLET PO SCH (09:38)
[2018-06-25] MEDS: CLOPIDOGREL 75MG TABLET PO SCH (09:39)
[2018-06-25 12:00] VITALS: BP 134/99
[2018-06-25 16:00] VITALS: BP 131/97
[2018-06-25] MEDS: MONTELUKAST SODIUM 10MG TABLET PO SCH (16:31)
[2018-06-25] MEDS ORDERED: IPRATROPIUM/ALBUTEROL 0.5-3(2.5)MG/3ML NEB HHN PRN (16:45)
[2018-06-25 18:24] LABS: BG BASE EXCESS 5.8 mmol/L (-2.0-2.0); BG CARBOXYHEMOGLOBIN 0.5 % (0.5-1.5); BG DEOXYHEMOGLOBIN 10.6 % (0.0-5.0); BG FRACTION INSPIRED OXYGEN 21; BG HCO3 ACT 28.1 mmol/L (22.0-26.0); BG METHEMOGLOBIN 0.3 % (0.0-1.5); BG OXYGEN SATURATION 89.3 % (92.0-98.5); BG OXYHEMOGLOBIN 88.6 % (94.0-97.0); BG PCO2 33.6 mmHg (35.0-45.0); BG PH 7.541 (7.350-7.450); BG PO2 52.4 mmHg (75.0-100.0); BG SAMPLE SITE RIGHT BRACHIAL; BG VENT MODE ROOM AIR
[2018-06-25 20:00] VITALS: BP 124/84
[2018-06-25] MEDS: METHYLPREDNISOLONE SOD SUCC 40 MG/ML VIAL IV SCH (20:46)
[2018-06-25] MEDS: ATORVASTATIN CALCIUM 20MG TABLET PO SCH (20:47)
[2018-06-25] MEDS ORDERED: ATORVASTATIN CALCIUM 20MG TABLET PO SCH (21:00)
[2018-06-25] MEDS: GUAIFENESIN 600MG ER TABLET PO SCH (21:36)
[2018-06-26] VITALS: BP 128/96
[2018-06-26 00:03] LABS: *AMPHETAMINES SCREEN URINE NEGATIVE (NEGATIVE); *BARBITURATES SCREEN URINE NEGATIVE (NEGATIVE); *BENZODIAZEPINES SCREEN URINE NEGATIVE (NEGATIVE); *COCAINE SCREEN URINE PRESUMTIVE POSITIVE (NEGATIVE); CANNABINOID URINE SCREEN NEGATIVE (NEGATIVE); METHADONE URINE SCREEN NEGATIVE (NEGATIVE); OPIATES URINE SCREEN NEGATIVE (NEGATIVE); PHENCYCLIDINE URINE SCREEN NEGATIVE (NEGATIVE)
[2018-06-26] MEDS: IPRATROPIUM/ALBUTEROL 0.5-3(2.5)MG/3ML NEB HHN SCH ×6 (01:08→20:44)
[2018-06-26] MEDS: METHYLPREDNISOLONE SOD SUCC 40 MG/ML VIAL IV SCH ×2 (02:05→09:00)
[2018-06-26 04:00] VITALS: BP 112/80
[2018-06-26] MEDS: FUROSEMIDE 100MG/10ML VIAL IVP SCH ×4 (06:55→17:57)
[2018-06-26 06:56] LABS: HEMATOCRIT. 36.8 % (42.0-52.0); MEAN CORPUSCULAR HEMOGLOBIN 25.6 pg (28.0-32.0); MEAN CORPUSCULAR VOLUME 78.4 fL (80.0-94.0); MEAN PLATELET VOLUME 10.8 fl (7.4-10.4); PLATELET 205 x1000/uL (130-400); RED CELL DISTRIBUTION WIDTH 15.9 % (11.6-14.6)
[2018-06-26 07:02] LABS: CHLORIDE 104 mEq/L (98-107)
[2018-06-26 08:00] VITALS: BP_SYST 102; BP_SYST 94; BP_DIAS 71; BP_DIAS 74
[2018-06-26] MEDS: BUDESONIDE 0.5MG/2ML NEB HHN SCH ×2 (08:43→20:42)
[2018-06-26] MEDS: ASPIRIN 81MG TABLET PO SCH (08:58)
[2018-06-26] MEDS: CARVEDILOL 6.25 MG TABLET PO SCH ×2 (08:59→09:00)
[2018-06-26] MEDS: POTASSIUM CHLORIDE 20MEQ TABLET SR PO SCH (08:59)
[2018-06-26] MEDS: LOSARTAN POTASSIUM 25 MG TABLET PO SCH ×2 (08:59→09:00)
[2018-06-26] MEDS: CLOPIDOGREL 75MG TABLET PO SCH (08:59)
[2018-06-26] MEDS: GUAIFENESIN 600MG ER TABLET PO SCH ×2 (08:59→21:34)
[2018-06-26 10:24] LABS: PLATELET ESTIMATE NORMAL
[2018-06-26 16:00] VITALS: BP 88/60
[2018-06-26] MEDS: BENZONATATE 100MG CAPSULE PO PRN (17:52)
[2018-06-26] MEDS: PREDNISONE 20MG TABLET PO SCH (17:52)
[2018-06-26] MEDS: MONTELUKAST SODIUM 10MG TABLET PO SCH (17:52)
[2018-06-26 20:00] VITALS: BP 90/54
[2018-06-26] MEDS: ATORVASTATIN CALCIUM 20MG TABLET PO SCH (21:34)
[2018-06-27] VITALS: BP 96/61
[2018-06-27] MEDS: IPRATROPIUM/ALBUTEROL 0.5-3(2.5)MG/3ML NEB HHN SCH ×6 (00:34→20:54)
[2018-06-27 04:00] VITALS: BP 98/66
[2018-06-27] MEDS: FUROSEMIDE 100MG/10ML VIAL IVP SCH ×2 (06:06→18:15)
[2018-06-27 08:00] VITALS: BP 86/53
[2018-06-27] MEDS: BUDESONIDE 0.5MG/2ML NEB HHN SCH (08:01)
[2018-06-27] MEDS: POTASSIUM CHLORIDE 20MEQ TABLET SR PO SCH (08:41)
[2018-06-27] MEDS: ASPIRIN 81MG TABLET PO SCH (08:41)
[2018-06-27] MEDS: BENZONATATE 100MG CAPSULE PO PRN (08:41)
[2018-06-27] MEDS: PREDNISONE 20MG TABLET PO SCH (08:41)
[2018-06-27] MEDS: GUAIFENESIN 600MG ER TABLET PO SCH ×2 (08:41→21:05)
[2018-06-27] MEDS: CLOPIDOGREL 75MG TABLET PO SCH (08:41)
[2018-06-27] MEDS: ACETAMINOPHEN 325MG TABLET PO PRN (08:41)
[2018-06-27] MEDS: LOSARTAN POTASSIUM 25 MG TABLET PO SCH (08:42)
[2018-06-27 10:53] LABS: CHLORIDE 101 mEq/L (98-107)
[2018-06-27 12:00] VITALS: BP 106/71
[2018-06-27 16:00] VITALS: BP 90/61
[2018-06-27] MEDS: MONTELUKAST SODIUM 10MG TABLET PO SCH (18:15)
[2018-06-27] MEDS: BENZONATATE 100MG CAPSULE PO SCH ×2 (18:15→21:05)
[2018-06-27 20:00] VITALS: BP 97/62
[2018-06-27] MEDS ORDERED: BUDESONIDE 0.5MG/2ML NEB HHN SCH (20:00)
[2018-06-27] MEDS: ATORVASTATIN CALCIUM 20MG TABLET PO SCH (21:05)
[2018-06-28] VITALS: BP 93/55
[2018-06-28] MEDS: IPRATROPIUM/ALBUTEROL 0.5-3(2.5)MG/3ML NEB HHN SCH ×4 (00:25→12:18)
[2018-06-28 04:00] VITALS: BP 88/56
[2018-06-28] MEDS: BENZONATATE 100MG CAPSULE PO SCH ×2 (06:43→14:26)
[2018-06-28] MEDS: FUROSEMIDE 100MG/10ML VIAL IVP SCH ×2 (07:15→10:58)
[2018-06-28 08:30] VITALS: BP 95/69
[2018-06-28] MEDS ORDERED: PREDNISONE 20MG TABLET PO SCH (09:00)
[2018-06-28 09:15] LABS: CHLORIDE 102 mEq/L (98-107)
[2018-06-28] MEDS: POTASSIUM CHLORIDE 20MEQ TABLET SR PO SCH (09:24)
[2018-06-28] MEDS: ASPIRIN 81MG TABLET PO SCH (09:24)
[2018-06-28] MEDS: GUAIFENESIN 600MG ER TABLET PO SCH (09:24)
[2018-06-28] MEDS: CLOPIDOGREL 75MG TABLET PO SCH (09:24)
[2018-06-28] MEDS: LOSARTAN POTASSIUM 25 MG TABLET PO SCH (09:25)
[2018-06-28 12:00] VITALS: BP 102/66
[2018-06-28 13:25] VITALS: BP 102/66
== END 2018-06-28 14:45 | disposition home or self-care (01) | DRG 140 ==
LOC: ER 08:47 → ENRESERV 15:34 → 5WST 16:48
PROVIDERS: ADMIT Internal Medicine; ATTEND Internal Medicine
PROC: 5A09357 Assistance with Respiratory Ventilation, Less than 24 Consecutive Hours, Continuous Positive Airway Pressure (ICD-10-PCS; principal; 2018-06-25)
PROC: 5A09357 Assistance with Respiratory Ventilation, Less than 24 Consecutive Hours, Continuous Positive Airway Pressure (ICD-10-PCS; 2018-06-26)
DX: J44.1 Chronic obstructive pulmonary disease with (acute) exacerbation (principal); J96.00 Acute respiratory failure, unspecified whether with hypoxia or hypercapnia; I50.23 Acute on chronic systolic (congestive) heart failure; E44.0 Moderate protein-calorie malnutrition; J45.901 Unspecified asthma with (acute) exacerbation; E87.70 Fluid overload, unspecified; I42.9 Cardiomyopathy, unspecified; I11.0 Hypertensive heart disease with heart failure; D64.9 Anemia, unspecified; E11.9 Type 2 diabetes mellitus without complications; F14.10 Cocaine abuse, uncomplicated; I25.10 Atherosclerotic heart disease of native coronary artery without angina pectoris; E87.6 Hypokalemia; E78.5 Hyperlipidemia, unspecified; Z71.51 Drug abuse counseling and surveillance of drug abuser; Z68.1 Body mass index [BMI] 19.9 or less, adult
CPT/HCPCS: 36415; 36600; 71045; 80048; 80305; 82375; 82550; 82553; 82805; 83605; 83880; 84484; 87804; 93005; 94640; 94660; 96374; 96375; 99285; J1940; J2920; J2930; J7512; J7620; J7626

== ENCOUNTER 2018-07-20 08:08 | Inpatient (IN) | payer MEDICAID ==
[~2018-07-20] VITALS: Ht 177.8 cm; Wt 56.7 kg
[~2018-07-20 08:08] MED LIST changes: -FURO-151 MT
[2018-07-20] MEDS ORDERED: VANCOMYCIN 1 G PREMIX 200 ML IV ONE ×2 (10:15→15:30)
[2018-07-20] MEDS ORDERED: PIPERACILLIN/TAZ 3.375G PREMIX 50 ML IV ONE (10:15)
[2018-07-20] MEDS ORDERED: SODIUM CHLORIDE 0.9% 1000ML BAG (SEPSIS BOLUS) IV ONE (10:15)
[2018-07-20] MEDS ORDERED: LEVOFLOXACIN 750MG PREMIX 150 ML IV ONE (10:15)
[2018-07-20] MEDS ORDERED: METHYLPREDNISOLONE SOD SUCC 125 MG/2 ML VIAL IV STA (10:26)
[2018-07-20] MEDS ORDERED: IPRATROPIUM BROMIDE (0.02%) 0.5MG/2.5ML NEB HHN STA (10:26)
[2018-07-20] MEDS ORDERED: ALBUTEROL (0.083%) 2.5MG/3ML NEB HHN STA (10:26)
[2018-07-20 12:14] LABS: BASOPHILS % 0.9 % (0.0-2.0); EOSINOPHILS % 2.2 % (0.0-5.0); HEMATOCRIT. 30.8 % (42.0-52.0); LYMPHOCYTES % 24.9 % (20.0-50.0); MEAN CORPUSCULAR HEMOGLOBIN 25.1 pg (28.0-32.0); MEAN CORPUSCULAR VOLUME 77.4 fL (80.0-94.0); MEAN PLATELET VOLUME 10.1 fl (7.4-10.4); MONOCYTES % 9.9 % (2.0-8.0); NEUTROPHILS % 62.1 % (40.0-76.0); PLATELET 134 x1000/uL (130-400); RED BLOOD CELL COUNT 3.97 mill/uL (4.7-6.1); RED CELL DISTRIBUTION WIDTH 16.2 % (11.6-14.6)
[2018-07-20 12:16] LABS: CHLORIDE 110 mEq/L (98-107)
[2018-07-20 12:19] LABS: INR 1.1; PROTHROMBIN TIME 11.1 sec (9.1-11.1)
[2018-07-20 12:23] LABS: ETHANOL BLOOD < 10 mg/dL
[2018-07-20] MEDS ORDERED: POTASSIUM CHLORIDE INJ 40 MEQ in DEXT 5% WATER 250 ML IV ONE (13:00)
[2018-07-20] MEDS ORDERED: ASPIRIN 325MG TABLET PO ONE (13:00)
[2018-07-20] MEDS ORDERED: METHYLPREDNISOLONE SOD SUCC 40 MG/ML VIAL IV SCH (13:45)
[2018-07-20] MEDS ORDERED: IPRATROPIUM/ALBUTEROL 0.5-3(2.5)MG/3ML NEB HHN PRN (13:45)
[2018-07-20 14:20] LABS: CLARITY URINE CLEAR (CLEAR); COLOR URINE YELLOW (YELLOW); KETONES URINE NEGATIVE (NEGATIVE); LEUKOCYTE ESTERASE URINE NEGATIVE (NEGATIVE); NITRITE URINE NEGATIVE (NEGATIVE); OCCULT BLOOD URINE NEGATIVE (NEGATIVE); PROTEIN URINE TRACE (NEGATIVE); SPECIFIC GRAVITY URINE 1.027 (1.005-1.030)
[2018-07-20 14:31] LABS: *AMPHETAMINES SCREEN URINE NEGATIVE (NEGATIVE); *BARBITURATES SCREEN URINE NEGATIVE (NEGATIVE); *BENZODIAZEPINES SCREEN URINE NEGATIVE (NEGATIVE); *COCAINE SCREEN URINE PRESUMTIVE POSITIVE (NEGATIVE)
[2018-07-20 14:32] LABS: CANNABINOID URINE SCREEN NEGATIVE (NEGATIVE); METHADONE URINE SCREEN NEGATIVE (NEGATIVE); OPIATES URINE SCREEN NEGATIVE (NEGATIVE); PHENCYCLIDINE URINE SCREEN NEGATIVE (NEGATIVE)
[2018-07-20] MEDS ORDERED: FUROSEMIDE 40MG/4ML VIAL IVP SCH (15:45)
[2018-07-20] MEDS ORDERED: POTASSIUM CHLORIDE 20MEQ TABLET SR PO ONE (17:39)
[2018-07-20] MEDS ORDERED: ASPIRIN 325MG TABLET PO NR (20:45)
[2018-07-20] MEDS: ATORVASTATIN CALCIUM 20MG TABLET PO SCH (22:06)
[2018-07-20] MEDS: MONTELUKAST SODIUM 10MG TABLET PO SCH (22:06)
[2018-07-20] MEDS: GUAIFENESIN 600MG ER TABLET PO SCH (22:07)
[2018-07-20 22:20] VITALS: BP 129/65
[2018-07-20 22:52] VITALS: BP 129/65
[2018-07-21] VITALS (12 sets, daily range): BP systolic 105–130; BP diastolic 63–95
[2018-07-21 06:08] LABS: CHLORIDE 110 mEq/L (98-107)
[2018-07-21 06:38] LABS: BASOPHILS % 0.3 % (0.0-2.0); HEMATOCRIT. 29.2 % (42.0-52.0); HEMOGLOBIN. 9.7 g/dL (14.0-18.0); LYMPHOCYTES % 13.1 % (20.0-50.0); MEAN CORPUSCULAR HEMOGLOBIN 25.6 pg (28.0-32.0); MEAN CORPUSCULAR VOLUME 77.5 fL (80.0-94.0); MEAN PLATELET VOLUME 10.7 fl (7.4-10.4); MONOCYTES % 8.6 % (2.0-8.0); PLATELET 144 x1000/uL (130-400); RED BLOOD CELL COUNT 3.77 mill/uL (4.7-6.1)
[2018-07-21] MEDS: BUDESONIDE 0.5MG/2ML NEB HHN SCH ×3 (07:35→21:06)
[2018-07-21] MEDS: IPRATROPIUM/ALBUTEROL 0.5-3(2.5)MG/3ML NEB HHN SCH ×4 (07:36→21:06)
[2018-07-21] MEDS: FUROSEMIDE 40MG/4ML VIAL IVP SCH ×2 (08:28→21:00)
[2018-07-21] MEDS: ASPIRIN 81MG EC TABLET PO SCH (08:28)
[2018-07-21] MEDS: GUAIFENESIN 600MG ER TABLET PO SCH ×2 (08:29→21:01)
[2018-07-21] MEDS: POTASSIUM CHLORIDE 20MEQ TABLET SR PO SCH ×2 (08:29→17:21)
[2018-07-21] MEDS ORDERED: LEVOFLOXACIN 750MG PREMIX 150 ML IV SCH (13:00)
[2018-07-21] MEDS: MONTELUKAST SODIUM 10MG TABLET PO SCH (17:21)
[2018-07-21] MEDS: GUAIFENESIN-DM 200MG-20MG/10ML UDC PO PRN (17:21)
[2018-07-21] MEDS: METHYLPREDNISOLONE SOD SUCC 40 MG/ML VIAL IV SCH (17:22)
[2018-07-21] MEDS: BENZONATATE 100MG CAPSULE PO PRN (19:11)
[2018-07-21] MEDS: ATORVASTATIN CALCIUM 20MG TABLET PO SCH (21:01)
[2018-07-22] VITALS (12 sets, daily range): BP systolic 100–120; BP diastolic 19–94
[2018-07-22] MEDS: IPRATROPIUM/ALBUTEROL 0.5-3(2.5)MG/3ML NEB HHN SCH ×6 (00:47→20:38)
[2018-07-22] MEDS: METHYLPREDNISOLONE SOD SUCC 40 MG/ML VIAL IV SCH ×2 (01:43→10:00)
[2018-07-22] MEDS: ASPIRIN 81MG EC TABLET PO SCH (08:58)
[2018-07-22] MEDS: POTASSIUM CHLORIDE 20MEQ TABLET SR PO SCH ×2 (08:58→17:25)
[2018-07-22] MEDS: GUAIFENESIN 600MG ER TABLET PO SCH ×2 (08:58→20:52)
[2018-07-22] MEDS: BENZONATATE 100MG CAPSULE PO PRN (08:58)
[2018-07-22] MEDS: FUROSEMIDE 40MG/4ML VIAL IVP SCH (09:00)
[2018-07-22 09:22] LABS: HEMATOCRIT. 32.6 % (42.0-52.0); HEMOGLOBIN. 10.5 g/dL (14.0-18.0); MEAN CORPUSCULAR HEMOGLOBIN 24.9 pg (28.0-32.0); MEAN PLATELET VOLUME 10.1 fl (7.4-10.4); PLATELET 157 x1000/uL (130-400); RED BLOOD CELL COUNT 4.23 mill/uL (4.7-6.1); RED CELL DISTRIBUTION WIDTH 16.7 % (11.6-14.6)
[2018-07-22] MEDS: BUDESONIDE 0.5MG/2ML NEB HHN SCH ×2 (09:56→20:38)
[2018-07-22 10:25] LABS: CHLORIDE 109 mEq/L (98-107)
[2018-07-22 10:43] LABS: PLATELET ESTIMATE NORMAL
[2018-07-22] MEDS: LEVOFLOXACIN 750MG PREMIX 150 ML IV SCH (14:54)
[2018-07-22] MEDS: MONTELUKAST SODIUM 10MG TABLET PO SCH (17:25)
[2018-07-22] MEDS: ATORVASTATIN CALCIUM 20MG TABLET PO SCH (20:53)
[2018-07-23] VITALS (12 sets, daily range): BP systolic 90–140; BP diastolic 58–80
[2018-07-23] MEDS: IPRATROPIUM/ALBUTEROL 0.5-3(2.5)MG/3ML NEB HHN SCH ×6 (00:31→20:01)
[2018-07-23] MEDS: FUROSEMIDE 40MG/4ML VIAL IVP SCH ×2 (05:37→16:33)
[2018-07-23] MEDS: BUDESONIDE 0.5MG/2ML NEB HHN SCH ×2 (08:24→20:01)
[2018-07-23] MEDS: PREDNISONE 20MG TABLET PO SCH (09:15)
[2018-07-23] MEDS: GUAIFENESIN 600MG ER TABLET PO SCH ×2 (09:15→21:18)
[2018-07-23] MEDS: POTASSIUM CHLORIDE 20MEQ TABLET SR PO SCH ×2 (09:15→16:35)
[2018-07-23] MEDS: ASPIRIN 81MG EC TABLET PO SCH (09:15)
[2018-07-23] MEDS: GUAIFENESIN-DM 200MG-20MG/10ML UDC PO PRN (09:39)
[2018-07-23 11:50] LABS: BASOPHILS % 0.3 % (0.0-2.0); EOSINOPHILS % 0.1 % (0.0-5.0); HEMATOCRIT. 33.3 % (42.0-52.0); HEMOGLOBIN. 10.9 g/dL (14.0-18.0); LYMPHOCYTES % 11.4 % (20.0-50.0); MEAN CORPUSCULAR HEMOGLOBIN 25.1 pg (28.0-32.0); MEAN CORPUSCULAR VOLUME 76.9 fL (80.0-94.0); MEAN PLATELET VOLUME 10.2 fl (7.4-10.4); MONOCYTES % 9.2 % (2.0-8.0); PLATELET 160 x1000/uL (130-400); RED BLOOD CELL COUNT 4.33 mill/uL (4.7-6.1); RED CELL DISTRIBUTION WIDTH 16.2 % (11.6-14.6)
[2018-07-23 12:41] LABS: CHLORIDE 105 mEq/L (98-107)
[2018-07-23] MEDS: LEVOFLOXACIN 750MG PREMIX 150 ML IV SCH (14:42)
[2018-07-23] MEDS: MONTELUKAST SODIUM 10MG TABLET PO SCH (16:35)
[2018-07-23] MEDS: ATORVASTATIN CALCIUM 20MG TABLET PO SCH (21:18)
[2018-07-24] VITALS (8 sets, daily range): BP systolic 90–110; BP diastolic 50–79
[2018-07-24] MEDS: IPRATROPIUM/ALBUTEROL 0.5-3(2.5)MG/3ML NEB HHN SCH ×4 (00:03→12:27)
[2018-07-24] MEDS: FUROSEMIDE 40MG/4ML VIAL IVP SCH (05:00)
[2018-07-24 07:23] LABS: BASOPHILS % 0.5 % (0.0-2.0); EOSINOPHILS % 0.3 % (0.0-5.0); HEMATOCRIT. 33.4 % (42.0-52.0); HEMOGLOBIN. 10.9 g/dL (14.0-18.0); LYMPHOCYTES % 18.4 % (20.0-50.0); MEAN CORPUSCULAR HEMOGLOBIN 25.1 pg (28.0-32.0); MEAN CORPUSCULAR VOLUME 76.6 fL (80.0-94.0); MEAN PLATELET VOLUME 10.3 fl (7.4-10.4); MONOCYTES % 9.5 % (2.0-8.0); NEUTROPHILS % 71.3 % (40.0-76.0); PLATELET 165 x1000/uL (130-400); RED BLOOD CELL COUNT 4.35 mill/uL (4.7-6.1); RED CELL DISTRIBUTION WIDTH 16.2 % (11.6-14.6)
[2018-07-24] MEDS ORDERED: DILTIAZEM HCL 120MG CAPSULE CD 24HR PO SCH (09:00)
[2018-07-24] MEDS: PREDNISONE 20MG TABLET PO SCH (09:00)
[2018-07-24] MEDS: POTASSIUM CHLORIDE 20MEQ TABLET SR PO SCH (09:21)
[2018-07-24] MEDS: ASPIRIN 81MG EC TABLET PO SCH (09:22)
[2018-07-24] MEDS: GUAIFENESIN 600MG ER TABLET PO SCH (09:22)
[2018-07-24 14:30] LABS: CHLORIDE 105 mEq/L (98-107)
== END 2018-07-24 15:30 | disposition home or self-care (01) | DRG 816 ==
LOC: ER 08:34 → EDBEDREQ 12:59 → EDBEDREQTM 12:59 → 3WST 13:27 → EDBEDREQ 13:41 → ENRESERV 20:42
PROVIDERS: ADMIT Internal Medicine; ATTEND Internal Medicine
PROC: 02HV33Z Insertion of Infusion Device into Superior Vena Cava, Percutaneous Approach (ICD-10-PCS; principal; 2018-07-20)
PROC: B5181ZA Fluoroscopy of Superior Vena Cava using Low Osmolar Contrast, Guidance (ICD-10-PCS; 2018-07-20)
PROC: B548ZZA Ultrasonography of Superior Vena Cava, Guidance (ICD-10-PCS; 2018-07-20)
DX: T40.5X1A Poisoning by cocaine, accidental (unintentional), initial encounter (principal); J96.00 Acute respiratory failure, unspecified whether with hypoxia or hypercapnia; I50.23 Acute on chronic systolic (congestive) heart failure; E43 Unspecified severe protein-calorie malnutrition; I95.9 Hypotension, unspecified; I42.0 Dilated cardiomyopathy; I11.0 Hypertensive heart disease with heart failure; J68.0 Bronchitis and pneumonitis due to chemicals, gases, fumes and vapors; F14.10 Cocaine abuse, uncomplicated; D64.9 Anemia, unspecified; E11.9 Type 2 diabetes mellitus without complications; E78.5 Hyperlipidemia, unspecified; E87.6 Hypokalemia; F17.200 Nicotine dependence, unspecified, uncomplicated; I25.10 Atherosclerotic heart disease of native coronary artery without angina pectoris; Z91.14 Patient's other noncompliance with medication regimen; Z68.1 Body mass index [BMI] 19.9 or less, adult; Y92.89 Other specified places as the place of occurrence of the external cause
CPT/HCPCS: 36415; 36569; 71045; 77001; 80048; 80305; 83605; 83880; 84145; 84484; 87804; 93005; 94640; 96365; 96366; 96367; 96368; 96375; 99291; C1725; G0482; J1940; J1956; J2543; J2920; J2930; J3370; J3480; J7030; J7060; J7512; J7611; J7620; J7626

== ENCOUNTER 2018-08-01 20:52 | Inpatient (IN) | payer MEDICAID ==
[~2018-08-01] VITALS: Ht 165.1 cm; Wt 57.2 kg
[~2018-08-01 20:52] MED LIST changes: -CLOP75TA16 PO
[2018-08-01] MEDS ORDERED: ALBUTEROL (0.083%) 2.5MG/3ML NEB HHN STA (22:33)
[2018-08-01] MEDS ORDERED: IPRATROPIUM BROMIDE (0.02%) 0.5MG/2.5ML NEB HHN STA (22:33)
[2018-08-01] MEDS ORDERED: METHYLPREDNISOLONE SOD SUCC 125 MG/2 ML VIAL IV STA (22:33)
[2018-08-01 23:10] LABS: HEMATOCRIT 32.5 % (42.0-52.0); HEMOGLOBIN 10.6 g/dL (14.0-18.0); MEAN CORPUSCULAR HEMOGLOBIN 24.7 pg (28.0-32.0); PLATELET 189 x1000/uL (130-400); RED BLOOD CELL COUNT 4.27 mill/uL (4.7-6.1); RED CELL DISTRIBUTION WIDTH 16.8 % (11.6-14.6)
[2018-08-01 23:17] LABS: CHLORIDE 109 mEq/L (98-107)
[2018-08-01] MEDS ORDERED: POTASSIUM CHLORIDE 20MEQ TABLET SR PO NR (23:44)
[2018-08-02] VITALS: BP 116/74
[2018-08-02 08:28] VITALS: BP 153/87
[2018-08-02 08:30] VITALS: BP 153/87
[2018-08-02] MEDS ORDERED: IPRATROPIUM/ALBUTEROL 0.5-3(2.5)MG/3ML NEB HHN PRN (08:45)
[2018-08-02] MEDS ORDERED: BENZONATATE 100MG CAPSULE PO PRN (08:45)
[2018-08-02] MEDS: METHYLPREDNISOLONE SOD SUCC 40 MG/ML VIAL IV SCH ×2 (09:50→16:44)
[2018-08-02] MEDS: ENOXAPARIN 40MG/0.4ML SYR SUBCUT SCH (09:51)
[2018-08-02] MEDS: LOSARTAN POTASSIUM 25 MG TABLET PO SCH (09:51)
[2018-08-02] MEDS: ASPIRIN 81MG TABLET PO SCH (09:51)
[2018-08-02 12:00] VITALS: BP 126/81
[2018-08-02] MEDS: IPRATROPIUM/ALBUTEROL 0.5-3(2.5)MG/3ML NEB HHN SCH ×3 (12:39→20:47)
[2018-08-02] MEDS ORDERED: INFLUENZA VIRUS VACCINE(AFLURIA) 0.5ML SYR IM ONE (15:00)
[2018-08-02 16:00] VITALS: BP 132/87
[2018-08-02] MEDS: FUROSEMIDE 40MG/4ML VIAL IVP SCH (16:30)
[2018-08-02] MEDS: MONTELUKAST SODIUM 10MG TABLET PO SCH (16:44)
[2018-08-02 17:41] LABS: *COCAINE SCREEN URINE PRESUMTIVE POSITIVE (NEGATIVE); METHADONE URINE SCREEN NEGATIVE (NEGATIVE); OPIATES URINE SCREEN NEGATIVE (NEGATIVE); PHENCYCLIDINE URINE SCREEN NEGATIVE (NEGATIVE)
[2018-08-02 17:42] LABS: *AMPHETAMINES SCREEN URINE NEGATIVE (NEGATIVE); *BARBITURATES SCREEN URINE NEGATIVE (NEGATIVE); *BENZODIAZEPINES SCREEN URINE NEGATIVE (NEGATIVE); CANNABINOID URINE SCREEN NEGATIVE (NEGATIVE)
[2018-08-02] MEDS: ATORVASTATIN CALCIUM 20MG TABLET PO SCH (20:05)
[2018-08-02 20:30] VITALS: BP 113/81
[2018-08-03] VITALS: BP 116/74
[2018-08-03] MEDS: IPRATROPIUM/ALBUTEROL 0.5-3(2.5)MG/3ML NEB HHN SCH ×6 (00:42→21:35)
[2018-08-03] MEDS: METHYLPREDNISOLONE SOD SUCC 40 MG/ML VIAL IV SCH ×3 (01:38→18:00)
[2018-08-03 04:00] VITALS: BP 112/73
[2018-08-03 07:44] LABS: HEMATOCRIT. 30.4 % (42.0-52.0); HEMOGLOBIN. 9.6 g/dL (14.0-18.0); MEAN CORPUSCULAR HEMOGLOBIN 24.5 pg (28.0-32.0); MEAN CORPUSCULAR VOLUME 77.2 fL (80.0-94.0); PLATELET 174 x1000/uL (130-400); RED BLOOD CELL COUNT 3.94 mill/uL (4.7-6.1); RED CELL DISTRIBUTION WIDTH 16.9 % (11.6-14.6)
[2018-08-03 08:36] VITALS: BP 101/70
[2018-08-03] MEDS: LOSARTAN POTASSIUM 25 MG TABLET PO SCH (09:00)
[2018-08-03] MEDS: FUROSEMIDE 40MG/4ML VIAL IVP SCH (09:00)
[2018-08-03] MEDS: ASPIRIN 81MG TABLET PO SCH (09:12)
[2018-08-03] MEDS: ENOXAPARIN 40MG/0.4ML SYR SUBCUT SCH (09:12)
[2018-08-03 09:30] LABS: CHLORIDE 108 mEq/L (98-107)
[2018-08-03 09:42] LABS: PLATELET ESTIMATE NORMAL
[2018-08-03 12:25] VITALS: BP 122/73
[2018-08-03 16:00] VITALS: BP 112/73
[2018-08-03] MEDS: BENZONATATE 100MG CAPSULE PO SCH (17:59)
[2018-08-03] MEDS: MONTELUKAST SODIUM 10MG TABLET PO SCH (18:00)
[2018-08-03 19:43] VITALS: BP 115/77
[2018-08-03] MEDS: ATORVASTATIN CALCIUM 20MG TABLET PO SCH (20:26)
[2018-08-04] VITALS: BP 122/80
[2018-08-04] MEDS: IPRATROPIUM/ALBUTEROL 0.5-3(2.5)MG/3ML NEB HHN SCH ×6 (00:47→20:22)
[2018-08-04] MEDS: METHYLPREDNISOLONE SOD SUCC 40 MG/ML VIAL IV SCH ×3 (02:13→17:34)
[2018-08-04] MEDS: BENZONATATE 100MG CAPSULE PO SCH ×3 (02:13→17:34)
[2018-08-04 04:00] VITALS: BP 115/77
[2018-08-04 08:00] VITALS: BP 125/95
[2018-08-04] MEDS: ENOXAPARIN 40MG/0.4ML SYR SUBCUT SCH (08:46)
[2018-08-04] MEDS: ASPIRIN 81MG TABLET PO SCH (08:46)
[2018-08-04] MEDS: LOSARTAN POTASSIUM 25 MG TABLET PO SCH (08:46)
[2018-08-04] MEDS: FUROSEMIDE 40MG/4ML VIAL IVP SCH ×2 (08:46→17:15)
[2018-08-04 12:00] VITALS: BP 110/63
[2018-08-04] MEDS: CARVEDILOL 3.125 MG TABLET PO SCH ×2 (12:00→20:21)
[2018-08-04] MEDS: POTASSIUM CHLORIDE 20MEQ TABLET SR PO SCH (13:35)
[2018-08-04 16:00] VITALS: BP 102/60
[2018-08-04 17:16] LABS: TOTAL IRON BINDING CAPACITY 403 ug/dL (250-450)
[2018-08-04] MEDS: MONTELUKAST SODIUM 10MG TABLET PO SCH (17:34)
[2018-08-04 17:42] LABS: VITAMIN B12 SERUM 309 pg/mL (211-911)
[2018-08-04 20:00] VITALS: BP 102/63
[2018-08-04] MEDS: LOSARTAN POTASSIUM 50 MG TABLET PO SCH (20:21)
[2018-08-04] MEDS: ATORVASTATIN CALCIUM 20MG TABLET PO SCH (20:30)
[2018-08-05] VITALS: BP 110/73
[2018-08-05] MEDS: IPRATROPIUM/ALBUTEROL 0.5-3(2.5)MG/3ML NEB HHN SCH ×6 (00:16→20:39)
[2018-08-05] MEDS: METHYLPREDNISOLONE SOD SUCC 40 MG/ML VIAL IV SCH ×3 (00:56→17:29)
[2018-08-05] MEDS: BENZONATATE 100MG CAPSULE PO SCH ×3 (01:00→17:29)
[2018-08-05 04:00] VITALS: BP 108/62
[2018-08-05] MEDS: FUROSEMIDE 40MG/4ML VIAL IVP SCH ×2 (06:23→16:03)
[2018-08-05 07:14] LABS: HEMATOCRIT. 30.4 % (42.0-52.0); HEMOGLOBIN. 9.8 g/dL (14.0-18.0); MEAN CORPUSCULAR HEMOGLOBIN 24.4 pg (28.0-32.0); MEAN CORPUSCULAR VOLUME 75.8 fL (80.0-94.0); MEAN PLATELET VOLUME 9.9 fl (7.4-10.4); PLATELET 172 x1000/uL (130-400); RED CELL DISTRIBUTION WIDTH 16.8 % (11.6-14.6)
[2018-08-05 07:43] LABS: CHLORIDE 106 mEq/L (98-107)
[2018-08-05 08:00] VITALS: BP 117/85
[2018-08-05] MEDS: LOSARTAN POTASSIUM 50 MG TABLET PO SCH ×2 (09:50→20:44)
[2018-08-05] MEDS: ENOXAPARIN 40MG/0.4ML SYR SUBCUT SCH (09:50)
[2018-08-05] MEDS: CARVEDILOL 3.125 MG TABLET PO SCH ×2 (09:51→20:44)
[2018-08-05] MEDS: POTASSIUM CHLORIDE 20MEQ TABLET SR PO SCH (09:51)
[2018-08-05] MEDS: ASPIRIN 81MG TABLET PO SCH (09:51)
[2018-08-05 11:37] LABS: PLATELET ESTIMATE NORMAL
[2018-08-05 12:00] VITALS: BP 107/75
[2018-08-05 16:00] VITALS: BP 113/74
[2018-08-05] MEDS: MONTELUKAST SODIUM 10MG TABLET PO SCH (16:02)
[2018-08-05] MEDS: FERROUS SULFATE 325MG TABLET PO SCH (17:29)
[2018-08-05 20:00] VITALS: BP 103/68
[2018-08-05] MEDS: ATORVASTATIN CALCIUM 20MG TABLET PO SCH (20:46)
[2018-08-05] MEDS: ASCORBIC ACID 250 MG TABLET PO SCH (20:46)
[2018-08-06] VITALS: BP 107/80
[2018-08-06] MEDS: BENZONATATE 100MG CAPSULE PO SCH ×3 (01:35→16:50)
[2018-08-06] MEDS: METHYLPREDNISOLONE SOD SUCC 40 MG/ML VIAL IV SCH (01:35)
[2018-08-06] MEDS: IPRATROPIUM/ALBUTEROL 0.5-3(2.5)MG/3ML NEB HHN SCH ×5 (01:41→17:00)
[2018-08-06 04:00] VITALS: BP 108/69
[2018-08-06] MEDS: FUROSEMIDE 40MG/4ML VIAL IVP SCH (06:19)
[2018-08-06 07:42] LABS: HEMATOCRIT. 34.8 % (42.0-52.0); HEMOGLOBIN. 11.1 g/dL (14.0-18.0); MEAN CORPUSCULAR HEMOGLOBIN 24.4 pg (28.0-32.0); MEAN CORPUSCULAR VOLUME 76.6 fL (80.0-94.0); MEAN PLATELET VOLUME 10.1 fl (7.4-10.4); PLATELET 214 x1000/uL (130-400); RED BLOOD CELL COUNT 4.54 mill/uL (4.7-6.1); RED CELL DISTRIBUTION WIDTH 16.7 % (11.6-14.6)
[2018-08-06 08:00] VITALS: BP 99/63
[2018-08-06 08:10] LABS: CHLORIDE 101 mEq/L (98-107)
[2018-08-06] MEDS: CARVEDILOL 3.125 MG TABLET PO SCH (09:00)
[2018-08-06] MEDS ORDERED: PREDNISONE 20MG TABLET PO SCH (09:00)
[2018-08-06] MEDS: LOSARTAN POTASSIUM 50 MG TABLET PO SCH (09:00)
[2018-08-06] MEDS: FERROUS SULFATE 325MG TABLET PO SCH ×2 (09:38→16:54)
[2018-08-06] MEDS: POTASSIUM CHLORIDE 20MEQ TABLET SR PO SCH (09:38)
[2018-08-06] MEDS: ASPIRIN 81MG TABLET PO SCH (09:38)
[2018-08-06] MEDS: ASCORBIC ACID 250 MG TABLET PO SCH (09:38)
[2018-08-06] MEDS: ENOXAPARIN 40MG/0.4ML SYR SUBCUT SCH (09:44)
[2018-08-06 12:00] VITALS: BP 105/81
[2018-08-06 14:40] VITALS: BP 105/81
[2018-08-06] MEDS: MONTELUKAST SODIUM 10MG TABLET PO SCH (16:50)
[2018-08-06 17:40] LABS: PLATELET ESTIMATE NORMAL
[2018-08-06] MEDS ORDERED: FUROSEMIDE 40MG TABLET PO SCH (21:00)
== END 2018-08-06 17:20 | disposition home or self-care (01) | DRG 816 ==
LOC: ER 20:52 → 8WST 08-02 00:16 → ENRESERV 08-02 07:04 → 8WST 08-02 08:37
PROVIDERS: ADMIT Internal Medicine; ATTEND Internal Medicine
DX: T40.5X1A Poisoning by cocaine, accidental (unintentional), initial encounter (principal); J96.00 Acute respiratory failure, unspecified whether with hypoxia or hypercapnia; E43 Unspecified severe protein-calorie malnutrition; I50.23 Acute on chronic systolic (congestive) heart failure; J84.9 Interstitial pulmonary disease, unspecified; I42.0 Dilated cardiomyopathy; E87.8 Other disorders of electrolyte and fluid balance, not elsewhere classified; J68.0 Bronchitis and pneumonitis due to chemicals, gases, fumes and vapors; I11.0 Hypertensive heart disease with heart failure; E87.6 Hypokalemia; E78.5 Hyperlipidemia, unspecified; E11.9 Type 2 diabetes mellitus without complications; I25.10 Atherosclerotic heart disease of native coronary artery without angina pectoris; F17.200 Nicotine dependence, unspecified, uncomplicated; D50.9 Iron deficiency anemia, unspecified; Y92.89 Other specified places as the place of occurrence of the external cause; Z91.19 Patient's noncompliance with other medical treatment and regimen; Z68.21 Body mass index [BMI] 21.0-21.9, adult
CPT/HCPCS: 36415; 71045; 80048; 80305; 82607; 82747; 83540; 83550; 83880; 85014; 85027; 93005; 94640; 96374; 99285; J1650; J1940; J2920; J2930; J7512; J7611; J7620

== ENCOUNTER 2020-11-04 10:28 | Inpatient (IN) | payer MEDICARE, MEDICAID ==
[~2020-11-04] VITALS: Ht 167.6 cm; Wt 59.9 kg
[~2020-11-04 10:28] MED LIST changes: +CARV3.1242 PO; +DIGO125T80 PO; +FURO40TA5 PO; +GUAI-1211 PO; +LISI-186 MT; -LOSA25TA12 MT; +LOSA25TA26 MT; +PRED-543 PO
[2020-11-04] MEDS ORDERED: ASPIRIN 81MG TABLET PO ONE (11:45)
[2020-11-04 11:50] LABS: BASOPHILS % 0.5 % (0.0-2.0); EOSINOPHILS % 3.9 % (0.0-5.0); HEMATOCRIT. 38.9 % (42.0-52.0); HEMOGLOBIN. 12.4 g/dL (14.0-18.0); LYMPHOCYTES % 22.9 % (20.0-50.0); MEAN CORPUSCULAR HEMOGLOBIN 25.7 pg (28.0-32.0); MEAN CORPUSCULAR VOLUME 80.3 fL (80.0-94.0); MEAN PLATELET VOLUME 10.7 fl (7.4-10.4); MONOCYTES % 6.6 % (2.0-8.0); NEUTROPHILS % 66.1 % (40.0-76.0); PLATELET 142 x1000/uL (130-400); RED BLOOD CELL COUNT 4.85 mill/uL (4.7-6.1); RED CELL DISTRIBUTION WIDTH 16.3 % (11.6-14.6)
[2020-11-04 11:57] LABS: INR 1.1; PROTHROMBIN TIME 11.9 sec (9.6-11.0)
[2020-11-04] MEDS ORDERED: ALBUTEROL (0.083%) 2.5MG/3ML NEB HHN STA (11:57)
[2020-11-04] MEDS ORDERED: METHYLPREDNISOLONE SOD SUCC 125 MG/2 ML VIAL IV STA (11:57)
[2020-11-04] MEDS ORDERED: IPRATROPIUM BROMIDE (0.02%) 0.5MG/2.5ML NEB HHN STA (11:57)
[2020-11-04 12:01] LABS: CHLORIDE 110 mEq/L (98-107)
[2020-11-04] MEDS ORDERED: FUROSEMIDE 20MG/2ML VIAL IVP ONE (13:45)
[2020-11-04 15:50] LABS: CLARITY URINE CLEAR (CLEAR); COLOR URINE YELLOW (YELLOW); KETONES URINE NEGATIVE (NEGATIVE); LEUKOCYTE ESTERASE URINE NEGATIVE (NEGATIVE); NITRITE URINE NEGATIVE (NEGATIVE); OCCULT BLOOD URINE NEGATIVE (NEGATIVE); PROTEIN URINE NEGATIVE (NEGATIVE); SPECIFIC GRAVITY URINE 1.009 (1.005-1.030)
[2020-11-04] MEDS ORDERED: DOCUSATE SODIUM 100MG CAPSULE PO PRN (16:45)
[2020-11-04] MEDS ORDERED: CLONIDINE 0.1MG TABLET PO PRN (16:45)
[2020-11-04] MEDS ORDERED: HYDROCODONE/ACETAMINOPHEN 5/325MG TABLET PO PRN (16:45)
[2020-11-04] MEDS ORDERED: ONDANSETRON HCL 4MG/2ML INJ IV PRN (16:45)
[2020-11-04] MEDS ORDERED: MAGNESIUM/ALUMINUM HYDROXIDE/SIMETHICONE 30ML UDC PO PRN (16:45)
[2020-11-04] MEDS ORDERED: IPRATROPIUM/ALBUTEROL 0.5-3(2.5)MG/3ML NEB NEB PRN (16:45)
[2020-11-04] MEDS: ENOXAPARIN 40MG/0.4ML SYR SUBCUT SCH (17:55)
[2020-11-04] MEDS: METHYLPREDNISOLONE SOD SUCC 125 MG/2 ML VIAL IV SCH (18:55)
[2020-11-04 23:00] VITALS: BP 107/76
[2020-11-05] VITALS: BP 106/69
[2020-11-05] MEDS: METHYLPREDNISOLONE SOD SUCC 125 MG/2 ML VIAL IV SCH ×4 (00:08→17:45)
[2020-11-05 04:00] VITALS: BP 96/67
[2020-11-05] MEDS ORDERED: ATOR-2 MT (04:09)
[2020-11-05] MEDS ORDERED: METO-396 MT (04:10)
[2020-11-05] MEDS ORDERED: SPIR25TA6 MT (04:10)
[2020-11-05 07:11] LABS: BASOPHILS % 0.3 % (0.0-2.0); HEMATOCRIT. 35.5 % (42.0-52.0); HEMOGLOBIN. 11.9 g/dL (14.0-18.0); LYMPHOCYTES % 13.4 % (20.0-50.0); MEAN CORPUSCULAR HEMOGLOBIN 26.3 pg (28.0-32.0); MEAN CORPUSCULAR VOLUME 78.7 fL (80.0-94.0); MEAN PLATELET VOLUME 11.2 fl (7.4-10.4); MONOCYTES % 4.4 % (2.0-8.0); NEUTROPHILS % 81.9 % (40.0-76.0); PLATELET 144 x1000/uL (130-400); RED BLOOD CELL COUNT 4.51 mill/uL (4.7-6.1)
[2020-11-05 07:25] LABS: CHLORIDE 106 mEq/L (98-107)
[2020-11-05 07:33] LABS: LDL CHOLESTEROL 108 mg/dL (5-100)
[2020-11-05 07:34] LABS: CREATINE KINASE 64 IU/L (39-308)
[2020-11-05 07:35] LABS: HDL CHOLESTEROL 52 mg/dL (40-59)
[2020-11-05 08:00] VITALS: BP 94/51
[2020-11-05] MEDS: ASPIRIN 81MG EC TABLET PO SCH (08:49)
[2020-11-05] MEDS: LISINOPRIL 10MG TABLET PO SCH (08:50)
[2020-11-05] MEDS: FUROSEMIDE 40MG/4ML VIAL IV SCH (08:50)
[2020-11-05] MEDS ORDERED: DIGOXIN 125MCG TABLET PO SCH (10:15)
[2020-11-05 12:00] VITALS: BP 100/61
[2020-11-05] MEDS: SPIRONOLACTONE 25MG TABLET PO SCH (12:32)
[2020-11-05] MEDS: GUAIFENESIN 200MG/10ML SUGAR FREE UDC PO PRN (12:37)
[2020-11-05 16:00] VITALS: BP 92/58
[2020-11-05] MEDS: ENOXAPARIN 40MG/0.4ML SYR SUBCUT SCH (17:44)
[2020-11-05 20:00] VITALS: BP 108/68
[2020-11-05] MEDS: ATORVASTATIN CALCIUM 40MG TABLET PO SCH (20:07)
[2020-11-05] MEDS: MORPHINE SULFATE 2 MG/ML CPJ (NOT FOR IM USE) IV PRN (22:46)
[2020-11-06] VITALS (7 sets, daily range): BP systolic 79–105; BP diastolic 39–72
[2020-11-06] MEDS: METHYLPREDNISOLONE SOD SUCC 125 MG/2 ML VIAL IV SCH ×2 (00:53→05:13)
[2020-11-06] MEDS: IPRATROPIUM/ALBUTEROL 0.5-3(2.5)MG/3ML NEB NEB SCH ×4 (01:33→21:24)
[2020-11-06 08:11] LABS: HEMATOCRIT. 34.4 % (42.0-52.0); HEMOGLOBIN. 11.3 g/dL (14.0-18.0); MEAN CORPUSCULAR HEMOGLOBIN 26.1 pg (28.0-32.0); MEAN CORPUSCULAR VOLUME 79.2 fL (80.0-94.0); MEAN PLATELET VOLUME 11.5 fl (7.4-10.4); PLATELET 141 x1000/uL (130-400); RED BLOOD CELL COUNT 4.35 mill/uL (4.7-6.1); RED CELL DISTRIBUTION WIDTH 16.2 % (11.6-14.6)
[2020-11-06 08:31] LABS: CHLORIDE 106 mEq/L (98-107)
[2020-11-06] MEDS: LISINOPRIL 10MG TABLET PO SCH (08:57)
[2020-11-06] MEDS: FUROSEMIDE 40MG/4ML VIAL IV SCH (08:57)
[2020-11-06] MEDS: ASPIRIN 81MG EC TABLET PO SCH (08:57)
[2020-11-06] MEDS: SPIRONOLACTONE 25MG TABLET PO SCH (08:58)
[2020-11-06] MEDS: GUAIFENESIN 200MG/10ML SUGAR FREE UDC PO PRN ×2 (09:00→17:50)
[2020-11-06] MEDS: MORPHINE SULFATE 2 MG/ML CPJ (NOT FOR IM USE) IV PRN (09:46)
[2020-11-06] MEDS ORDERED: BENZONATATE 100MG CAPSULE PO PRN (11:15)
[2020-11-06] MEDS: METHYLPREDNISOLONE SOD SUCC 40 MG/ML VIAL IV SCH ×2 (13:13→20:05)
[2020-11-06] MEDS: GUAIFENESIN 600MG ER TABLET PO SCH ×2 (13:13→20:04)
[2020-11-06] MEDS: DIGOXIN 125MCG TABLET PO SCH (17:50)
[2020-11-06] MEDS: ENOXAPARIN 40MG/0.4ML SYR SUBCUT SCH (17:51)
[2020-11-06 19:11] LABS: PLATELET ESTIMATE NORMAL
[2020-11-06] MEDS: ATORVASTATIN CALCIUM 40MG TABLET PO SCH (20:04)
[2020-11-06] MEDS: MIDODRINE HCL 2.5MG TABLET PO SCH (20:05)
[2020-11-06] MEDS: ACETAMINOPHEN 325MG TABLET PO PRN (20:26)
[2020-11-07] VITALS: BP 93/54
[2020-11-07] MEDS: IPRATROPIUM/ALBUTEROL 0.5-3(2.5)MG/3ML NEB NEB SCH ×4 (03:00→22:05)
[2020-11-07 04:00] VITALS: BP 91/57
[2020-11-07] MEDS: METHYLPREDNISOLONE SOD SUCC 40 MG/ML VIAL IV SCH ×3 (05:33→21:40)
[2020-11-07 06:09] LABS: HEMATOCRIT. 33.9 % (42.0-52.0); HEMOGLOBIN. 11.4 g/dL (14.0-18.0); MEAN CORPUSCULAR HEMOGLOBIN 26.3 pg (28.0-32.0); MEAN CORPUSCULAR VOLUME 78.6 fL (80.0-94.0); MEAN PLATELET VOLUME 11.1 fl (7.4-10.4); PLATELET 134 x1000/uL (130-400); RED BLOOD CELL COUNT 4.31 mill/uL (4.7-6.1); RED CELL DISTRIBUTION WIDTH 16.5 % (11.6-14.6)
[2020-11-07 07:20] LABS: CHLORIDE 104 mEq/L (98-107)
[2020-11-07 08:00] VITALS: BP 120/72
[2020-11-07] MEDS: MORPHINE SULFATE 2 MG/ML CPJ (NOT FOR IM USE) IV PRN ×2 (08:54→15:59)
[2020-11-07] MEDS: SPIRONOLACTONE 25MG TABLET PO SCH (09:35)
[2020-11-07] MEDS: ASPIRIN 81MG EC TABLET PO SCH (09:35)
[2020-11-07] MEDS: GUAIFENESIN 600MG ER TABLET PO SCH ×2 (09:35→21:40)
[2020-11-07] MEDS: MIDODRINE HCL 2.5MG TABLET PO SCH ×3 (09:36→17:09)
[2020-11-07 10:12] LABS: DIGOXIN 0.6 ng/mL (0.9-2.0)
[2020-11-07 12:00] VITALS: BP 105/62
[2020-11-07] MEDS: NITROGLYCERIN OINT 1GM/INCH UDPKT TD SCH ×2 (14:21→23:06)
[2020-11-07 16:00] VITALS: BP 102/66
[2020-11-07] MEDS: ENOXAPARIN 40MG/0.4ML SYR SUBCUT SCH (17:09)
[2020-11-07] MEDS: FUROSEMIDE 40MG/4ML VIAL IV SCH (17:09)
[2020-11-07] MEDS: DIGOXIN 125MCG TABLET PO SCH (18:47)
[2020-11-07 19:22] LABS: *AMPHETAMINES SCREEN URINE NEGATIVE (NEGATIVE); *BARBITURATES SCREEN URINE NEGATIVE (NEGATIVE); *BENZODIAZEPINES SCREEN URINE NEGATIVE (NEGATIVE); *COCAINE SCREEN URINE PRESUMTIVE POSITIVE (NEGATIVE); CANNABINOID URINE SCREEN NEGATIVE (NEGATIVE); METHADONE URINE SCREEN NEGATIVE (NEGATIVE); OPIATES URINE SCREEN PRESUMTIVE POSITIVE (NEGATIVE); PHENCYCLIDINE URINE SCREEN NEGATIVE (NEGATIVE)
[2020-11-07 20:00] VITALS: BP 98/57
[2020-11-07] MEDS: ATORVASTATIN CALCIUM 40MG TABLET PO SCH (21:39)
[2020-11-07 21:51] LABS: PLATELET ESTIMATE NORMAL
[2020-11-08] VITALS: BP 94/59
[2020-11-08 04:00] VITALS: BP 107/77
[2020-11-08] MEDS: IPRATROPIUM/ALBUTEROL 0.5-3(2.5)MG/3ML NEB NEB SCH ×4 (04:01→21:49)
[2020-11-08] MEDS: MORPHINE SULFATE 2 MG/ML CPJ (NOT FOR IM USE) IV PRN (05:43)
[2020-11-08] MEDS: METHYLPREDNISOLONE SOD SUCC 40 MG/ML VIAL IV SCH ×2 (05:52→17:27)
[2020-11-08] MEDS: NITROGLYCERIN OINT 1GM/INCH UDPKT TD SCH ×2 (05:56→18:00)
[2020-11-08] MEDS: FUROSEMIDE 40MG/4ML VIAL IV SCH ×2 (06:39→17:27)
[2020-11-08 08:00] VITALS: BP 105/68
[2020-11-08 08:43] LABS: CHLORIDE 102 mEq/L (98-107)
[2020-11-08] MEDS: ASPIRIN 81MG EC TABLET PO SCH (08:47)
[2020-11-08] MEDS: GUAIFENESIN 600MG ER TABLET PO SCH ×2 (08:47→21:04)
[2020-11-08] MEDS: MIDODRINE HCL 2.5MG TABLET PO SCH ×3 (08:51→17:33)
[2020-11-08] MEDS: LISINOPRIL 2.5MG TABLET PO SCH (08:53)
[2020-11-08] MEDS: SPIRONOLACTONE 25MG TABLET PO SCH (08:53)
[2020-11-08 09:55] LABS: HEMATOCRIT. 35.9 % (42.0-52.0); HEMOGLOBIN. 11.7 g/dL (14.0-18.0); MEAN CORPUSCULAR HEMOGLOBIN 25.7 pg (28.0-32.0); MEAN CORPUSCULAR VOLUME 79.1 fL (80.0-94.0); MEAN PLATELET VOLUME 11.8 fl (7.4-10.4); PLATELET 146 x1000/uL (130-400); RED BLOOD CELL COUNT 4.54 mill/uL (4.7-6.1); RED CELL DISTRIBUTION WIDTH 16.6 % (11.6-14.6)
[2020-11-08] MEDS: ACETAMINOPHEN 325MG TABLET PO PRN (10:35)
[2020-11-08 12:07] VITALS: BP 102/54
[2020-11-08] MEDS: DILTIAZEM HCL 30MG TABLET PO SCH ×2 (14:00→21:05)
[2020-11-08 16:03] VITALS: BP 93/54
[2020-11-08] MEDS: ENOXAPARIN 40MG/0.4ML SYR SUBCUT SCH (17:26)
[2020-11-08] MEDS: DIGOXIN 125MCG TABLET PO SCH (17:27)
[2020-11-08 19:41] LABS: PLATELET ESTIMATE NORMAL
[2020-11-08 20:00] VITALS: BP 109/56
[2020-11-08] MEDS: ATORVASTATIN CALCIUM 40MG TABLET PO SCH (21:04)
[2020-11-09] VITALS: BP 96/60
[2020-11-09] MEDS: ACETAMINOPHEN 325MG TABLET PO PRN (02:39)
[2020-11-09] MEDS: IPRATROPIUM/ALBUTEROL 0.5-3(2.5)MG/3ML NEB NEB SCH ×3 (03:04→13:16)
[2020-11-09 04:00] VITALS: BP 92/61
[2020-11-09] MEDS: NITROGLYCERIN OINT 1GM/INCH UDPKT TD SCH (06:00)
[2020-11-09] MEDS: DILTIAZEM HCL 30MG TABLET PO SCH ×2 (06:00→13:03)
[2020-11-09 06:57] LABS: HEMATOCRIT. 33.7 % (42.0-52.0); HEMOGLOBIN. 11.2 g/dL (14.0-18.0); MEAN CORPUSCULAR HEMOGLOBIN 26.3 pg (28.0-32.0); MEAN CORPUSCULAR VOLUME 78.7 fL (80.0-94.0); MEAN PLATELET VOLUME 11.4 fl (7.4-10.4); PLATELET 137 x1000/uL (130-400); RED BLOOD CELL COUNT 4.28 mill/uL (4.7-6.1); RED CELL DISTRIBUTION WIDTH 16.3 % (11.6-14.6)
[2020-11-09] MEDS: FUROSEMIDE 40MG/4ML VIAL IV SCH ×2 (06:59→07:23)
[2020-11-09 07:30] LABS: CHLORIDE 101 mEq/L (98-107)
[2020-11-09 08:00] VITALS: BP 97/59
[2020-11-09] MEDS: ASPIRIN 81MG EC TABLET PO SCH (08:25)
[2020-11-09] MEDS: METHYLPREDNISOLONE SOD SUCC 40 MG/ML VIAL IV SCH (08:25)
[2020-11-09] MEDS: MIDODRINE HCL 2.5MG TABLET PO SCH ×2 (08:26→13:02)
[2020-11-09] MEDS: GUAIFENESIN 600MG ER TABLET PO SCH (08:26)
[2020-11-09] MEDS: LISINOPRIL 2.5MG TABLET PO SCH (08:26)
[2020-11-09 12:00] VITALS: BP 103/60
[2020-11-09 13:56] LABS: PLATELET ESTIMATE NORMAL
[2020-11-09 15:47] VITALS: BP 103/60
[2020-11-09 16:00] VITALS: BP 98/62
== END 2020-11-09 16:42 | disposition home or self-care (01) | DRG 133 ==
LOC: ER 10:41 → 6WST 13:42 → EDBEDREQTM 13:46 → EDBEDREQ 13:46 → ENRESERV 19:38
PROVIDERS: ADMIT Hospitalist; ATTEND Hospitalist
DX: J96.00 Acute respiratory failure, unspecified whether with hypoxia or hypercapnia (principal); J44.1 Chronic obstructive pulmonary disease with (acute) exacerbation; I11.0 Hypertensive heart disease with heart failure; I50.23 Acute on chronic systolic (congestive) heart failure; E78.5 Hyperlipidemia, unspecified; I25.119 Atherosclerotic heart disease of native coronary artery with unspecified angina pectoris; I95.9 Hypotension, unspecified; F14.10 Cocaine abuse, uncomplicated; F17.210 Nicotine dependence, cigarettes, uncomplicated; I34.0 Nonrheumatic mitral (valve) insufficiency; D64.9 Anemia, unspecified; Z20.822 Contact with and (suspected) exposure to COVID-19; I42.0 Dilated cardiomyopathy; Z82.49 Family history of ischemic heart disease and other diseases of the circulatory system; I25.2 Old myocardial infarction; Z79.899 Other long term (current) drug therapy; Z79.84 Long term (current) use of oral hypoglycemic drugs; Z79.82 Long term (current) use of aspirin; Z95.810 Presence of automatic (implantable) cardiac defibrillator
CPT/HCPCS: 36415; 71045; 80048; 80053; 80061; 80162; 80305; 81003; 82550; 83605; 83735; 83880; 84145; 84484; 85025; 87426; 93005; 93306; 93970; 94640; 99291; J1650; J1940; J2270; J2920; J2930

== ENCOUNTER 2020-12-24 18:48 | Inpatient (IN) | payer MEDICARE, MEDICAID ==
[~2020-12-24] VITALS: Ht 167.6 cm; Wt 49.4 kg
[~2020-12-24 18:48] MED LIST changes: -ALBU2.5V13 NEB; -ASPI-1160 PO; +ATOR-2 MT; -ATOR20TA65 MT; -CARV3.1242 PO; -FLUT1DIS3 INH; -GUAI-1211 PO; -GUAI-740 MT; -LISI-186 MT; +METO-396 MT; -PRED-543 PO; +SPIR25TA6 MT
[2020-12-24] MEDS ORDERED: NITROGLYCERIN 0.4MG TABLET SL SL PRN ×2 (19:15→22:00)
[2020-12-24] MEDS ORDERED: ASPIRIN 81MG TABLET PO ONE (19:15)
[2020-12-24 19:28] LABS: BASOPHILS % 1.5 % (0.0-2.0); EOSINOPHILS % 0.9 % (0.0-5.0); HEMATOCRIT. 34.4 % (42.0-52.0); HEMOGLOBIN. 11.5 g/dL (14.0-18.0); MEAN CORPUSCULAR HEMOGLOBIN 26.2 pg (28.0-32.0); MEAN CORPUSCULAR VOLUME 78.7 fL (80.0-94.0); MEAN PLATELET VOLUME 10.3 fl (7.4-10.4); MONOCYTES % 7.3 % (2.0-8.0); NEUTROPHILS % 69.3 % (40.0-76.0); PLATELET 229 x1000/uL (130-400); RED BLOOD CELL COUNT 4.37 mill/uL (4.7-6.1)
[2020-12-24 19:32] LABS: CHLORIDE 109 mEq/L (98-107)
[2020-12-24 19:36] LABS: ETHANOL BLOOD < 10 mg/dL
[2020-12-24] MEDS ORDERED: FUROSEMIDE 40MG/4ML VIAL IVP NR (20:45)
[2020-12-24] MEDS ORDERED: IPRATROPIUM/ALBUTEROL 0.5-3(2.5)MG/3ML NEB NEB PRN (22:00)
[2020-12-24] MEDS ORDERED: DOCUSATE SODIUM 100MG CAPSULE PO PRN (22:00)
[2020-12-24] MEDS ORDERED: NA PHOS,M-B/NA PHOS,DI-BA ENEMA 118ML PR PRN (22:00)
[2020-12-24] MEDS ORDERED: CLONIDINE 0.1MG TABLET PO PRN (22:00)
[2020-12-24] MEDS ORDERED: ONDANSETRON HCL 4MG/2ML INJ IV PRN (22:00)
[2020-12-24] MEDS ORDERED: ENOXAPARIN 40MG/0.4ML SYR SUBCUT SCH (22:00)
[2020-12-24] MEDS ORDERED: MAGNESIUM/ALUMINUM HYDROXIDE/SIMETHICONE 30ML UDC PO PRN (22:00)
[2020-12-24] MEDS ORDERED: ACETAMINOPHEN 325MG TABLET PO PRN (22:00)
[2020-12-24 23:17] LABS: CREATINE KINASE MB FRACTION 1.5 ng/mL (0.5-3.6)
[2020-12-24 23:30] VITALS: BP 112/86
[2020-12-25] MEDS ORDERED: FAMO20TA8 MT (00:10)
[2020-12-25] MEDS ORDERED: ASPI-986 PO (00:11)
[2020-12-25] MEDS ORDERED: *PATIENT'S OWN MEDICATION STORAGE XX SCH (00:15)
[2020-12-25] MEDS: ENOXAPARIN 40MG/0.4ML SYR SUBCUT SCH ×2 (00:52→20:49)
[2020-12-25] MEDS: ZOLPIDEM TARTRATE 5MG TABLET PO PRN ×2 (00:52→20:49)
[2020-12-25 01:01] VITALS: BP 112/86
[2020-12-25 04:00] VITALS: BP 100/75
[2020-12-25 06:57] LABS: HEMATOCRIT. 34.1 % (42.0-52.0); HEMOGLOBIN. 11.3 g/dL (14.0-18.0); LYMPHOCYTES % 24.2 % (20.0-50.0); MEAN CORPUSCULAR HEMOGLOBIN 26.1 pg (28.0-32.0); MEAN CORPUSCULAR VOLUME 79.1 fL (80.0-94.0); MEAN PLATELET VOLUME 10.5 fl (7.4-10.4); MONOCYTES % 7.6 % (2.0-8.0); NEUTROPHILS % 66.2 % (40.0-76.0); PLATELET 195 x1000/uL (130-400); RED BLOOD CELL COUNT 4.31 mill/uL (4.7-6.1)
[2020-12-25 07:13] LABS: CHLORIDE 109 mEq/L (98-107)
[2020-12-25 07:25] LABS: PHOSPHORUS 3.8 mg/dL (2.5-4.9)
[2020-12-25 07:28] LABS: CREATINE KINASE 65 IU/L (39-308)
[2020-12-25 07:32] LABS: CREATINE KINASE MB FRACTION 1.6 ng/mL (0.5-3.6)
[2020-12-25 08:00] VITALS: BP 104/78
[2020-12-25] MEDS: ZINC SULFATE 220 MG ( 50 ) CAPSULE PO SCH (08:25)
[2020-12-25] MEDS: CHOLECALCIFEROL (D3) 1000 UNIT TABLET PO SCH (08:25)
[2020-12-25] MEDS: FAMOTIDINE 20MG TABLET PO SCH ×2 (08:25→20:49)
[2020-12-25] MEDS: SPIRONOLACTONE 25MG TABLET PO SCH ×2 (08:26→20:49)
[2020-12-25] MEDS: ASCORBIC ACID 500 MG TABLET PO SCH ×2 (08:26→20:49)
[2020-12-25] MEDS: ACETAMINOPHEN 325MG TABLET PO PRN ×4 (08:29→23:06)
[2020-12-25] MEDS: ASPIRIN 325MG EC TABLET PO SCH (08:29)
[2020-12-25] MEDS ORDERED: FUROSEMIDE 40MG/4ML VIAL IVP SCH ×2 (09:00→21:00)
[2020-12-25 12:00] VITALS: BP 110/84
[2020-12-25 16:00] VITALS: BP 109/78
[2020-12-25] MEDS: DIGOXIN 125MCG TABLET PO SCH (19:00)
[2020-12-25] MEDS: METHYLPREDNISOLONE SOD SUCC 40 MG/ML VIAL IV SCH (19:01)
[2020-12-25 20:00] VITALS: BP 114/82
[2020-12-25] MEDS: FUROSEMIDE 100MG/10ML VIAL IVP SCH ×2 (20:48→21:00)
[2020-12-25] MEDS: IPRATROPIUM/ALBUTEROL 0.5-3(2.5)MG/3ML NEB HHN SCH (22:05)
[2020-12-26] VITALS (7 sets, daily range): BP systolic 82–110; BP diastolic 44–96
[2020-12-26] MEDS: METHYLPREDNISOLONE SOD SUCC 40 MG/ML VIAL IV SCH ×3 (00:05→17:01)
[2020-12-26] MEDS: GUAIFENESIN 200MG/10ML SUGAR FREE UDC PO PRN ×3 (02:19→21:35)
[2020-12-26] MEDS: ACETAMINOPHEN 325MG TABLET PO PRN (04:49)
[2020-12-26 07:22] LABS: BASOPHILS % 0.3 % (0.0-2.0); HEMATOCRIT. 33.5 % (42.0-52.0); HEMOGLOBIN. 11.2 g/dL (14.0-18.0); LYMPHOCYTES % 13.5 % (20.0-50.0); MEAN CORPUSCULAR HEMOGLOBIN 26.2 pg (28.0-32.0); MEAN CORPUSCULAR VOLUME 78.3 fL (80.0-94.0); MEAN PLATELET VOLUME 11.2 fl (7.4-10.4); MONOCYTES % 1.8 % (2.0-8.0); NEUTROPHILS % 84.4 % (40.0-76.0); PLATELET 196 x1000/uL (130-400); RED BLOOD CELL COUNT 4.27 mill/uL (4.7-6.1); RED CELL DISTRIBUTION WIDTH 17.1 % (11.6-14.6)
[2020-12-26 07:24] LABS: CHLORIDE 105 mEq/L (98-107)
[2020-12-26] MEDS: FUROSEMIDE 100MG/10ML VIAL IVP SCH (08:37)
[2020-12-26] MEDS: CHOLECALCIFEROL (D3) 1000 UNIT TABLET PO SCH (08:37)
[2020-12-26] MEDS: ZINC SULFATE 220 MG ( 50 ) CAPSULE PO SCH (08:38)
[2020-12-26] MEDS: SPIRONOLACTONE 25MG TABLET PO SCH (08:38)
[2020-12-26] MEDS: FAMOTIDINE 20MG TABLET PO SCH ×2 (08:38→21:34)
[2020-12-26] MEDS: ASCORBIC ACID 500 MG TABLET PO SCH ×2 (08:38→21:21)
[2020-12-26] MEDS: ASPIRIN 325MG EC TABLET PO SCH (08:38)
[2020-12-26] MEDS ORDERED: LORAZEPAM 2MG/ML CPJ IV PRN (09:00)
[2020-12-26] MEDS: IPRATROPIUM/ALBUTEROL 0.5-3(2.5)MG/3ML NEB HHN SCH ×2 (09:49→15:54)
[2020-12-26 11:55] LABS: *AMPHETAMINES SCREEN URINE NEGATIVE (NEGATIVE); *BARBITURATES SCREEN URINE NEGATIVE (NEGATIVE); *BENZODIAZEPINES SCREEN URINE NEGATIVE (NEGATIVE); *COCAINE SCREEN URINE PRESUMTIVE POSITIVE (NEGATIVE); METHADONE URINE SCREEN NEGATIVE (NEGATIVE); OPIATES URINE SCREEN NEGATIVE (NEGATIVE)
[2020-12-26 11:56] LABS: PHENCYCLIDINE URINE SCREEN NEGATIVE (NEGATIVE)
[2020-12-26 11:58] LABS: CANNABINOID URINE SCREEN NEGATIVE (NEGATIVE)
[2020-12-26] MEDS ORDERED: ALBUTEROL (0.5%) 2.5MG/0.5ML NEB HHN PRN (17:00)
[2020-12-26] MEDS ORDERED: IPRATROPIUM/ALBUTEROL 0.5-3(2.5)MG/3ML NEB NEB SCH (17:00)
[2020-12-26] MEDS: DIGOXIN 125MCG TABLET PO SCH (17:02)
[2020-12-26] MEDS ORDERED: FUROSEMIDE 40MG/4ML VIAL IVP SCH (18:00)
[2020-12-26] MEDS: IPRATROPIUM/ALBUTEROL 0.5-3(2.5)MG/3ML NEB NEB SCH (20:24)
[2020-12-26] MEDS: ENOXAPARIN 40MG/0.4ML SYR SUBCUT SCH (21:22)
[2020-12-27] VITALS: BP 88/59
[2020-12-27] MEDS: METHYLPREDNISOLONE SOD SUCC 40 MG/ML VIAL IV SCH ×3 (00:02→17:42)
[2020-12-27] MEDS: ACETAMINOPHEN 325MG TABLET PO PRN (00:07)
[2020-12-27] MEDS: IPRATROPIUM/ALBUTEROL 0.5-3(2.5)MG/3ML NEB NEB SCH ×6 (00:20→20:53)
[2020-12-27] MEDS: GUAIFENESIN 200MG/10ML SUGAR FREE UDC PO PRN ×2 (02:13→20:28)
[2020-12-27 04:00] VITALS: BP 90/54
[2020-12-27 08:00] VITALS: BP 90/58
[2020-12-27 08:18] LABS: BG BASE EXCESS 1.6 mmol/L (-2.0-2.0); BG CARBOXYHEMOGLOBIN 0.3 % (0.5-1.5); BG DEOXYHEMOGLOBIN 1.8 % (0.0-5.0); BG FRACTION INSPIRED OXYGEN 28; BG HCO3 ACT 23.9 mmol/L (22.0-26.0); BG METHEMOGLOBIN 0.2 % (0.0-1.5); BG OXYGEN SATURATION 98.2 % (92.0-98.5); BG OXYHEMOGLOBIN 97.7 % (94.0-97.0); BG PCO2 29.8 mmHg (35.0-45.0); BG PH 7.522 (7.350-7.450); BG PO2 113.9 mmHg (75.0-100.0); BG SAMPLE SITE LEFT RADIAL; BG TOTAL HEMOGLOBIN 10.2 g/dL (12.0-18.0); BG VENT MODE NASAL CANNULA
[2020-12-27] MEDS: ASPIRIN 325MG EC TABLET PO SCH (08:42)
[2020-12-27] MEDS: CHOLECALCIFEROL (D3) 1000 UNIT TABLET PO SCH (08:43)
[2020-12-27] MEDS: FAMOTIDINE 20MG TABLET PO SCH ×2 (08:43→20:28)
[2020-12-27] MEDS: ASCORBIC ACID 500 MG TABLET PO SCH ×2 (08:43→20:28)
[2020-12-27] MEDS: ZINC SULFATE 220 MG ( 50 ) CAPSULE PO SCH (08:43)
[2020-12-27 12:00] VITALS: BP 95/65
[2020-12-27] MEDS ORDERED: ALBUTEROL (0.083%) 2.5MG/3ML NEB HHN PRN (12:45)
[2020-12-27 16:00] VITALS: BP 89/56
[2020-12-27] MEDS: DIGOXIN 125MCG TABLET PO SCH (17:42)
[2020-12-27 20:00] VITALS: BP 90/58
[2020-12-27] MEDS: ENOXAPARIN 40MG/0.4ML SYR SUBCUT SCH (20:28)
[2020-12-28] VITALS: BP 94/62
[2020-12-28] MEDS: METHYLPREDNISOLONE SOD SUCC 40 MG/ML VIAL IV SCH ×2 (00:07→08:44)
[2020-12-28] MEDS: IPRATROPIUM/ALBUTEROL 0.5-3(2.5)MG/3ML NEB NEB SCH ×3 (01:04→09:10)
[2020-12-28 04:00] VITALS: BP 101/62
[2020-12-28 08:00] VITALS: BP 103/75
[2020-12-28] MEDS: CHOLECALCIFEROL (D3) 1000 UNIT TABLET PO SCH (08:44)
[2020-12-28] MEDS: ZINC SULFATE 220 MG ( 50 ) CAPSULE PO SCH (08:44)
[2020-12-28] MEDS: ASPIRIN 325MG EC TABLET PO SCH (08:44)
[2020-12-28] MEDS: FAMOTIDINE 20MG TABLET PO SCH (08:44)
[2020-12-28] MEDS: ASCORBIC ACID 500 MG TABLET PO SCH (08:44)
[2020-12-28 11:05] VITALS: BP 103/75
== END 2020-12-28 11:40 | disposition home health service (06) | DRG 133 ==
LOC: ER 18:48 → 5WST 21:44 → SUPCPDRO 21:55 → ENRESERV 22:35
PROVIDERS: ADMIT Internal Medicine; ATTEND Internal Medicine
DX: J96.01 Acute respiratory failure with hypoxia (principal); I21.4 Non-ST elevation (NSTEMI) myocardial infarction; I47.2 Ventricular tachycardia; I50.43 Acute on chronic combined systolic (congestive) and diastolic (congestive) heart failure; D68.59 Other primary thrombophilia; I42.8 Other cardiomyopathies; I48.0 Paroxysmal atrial fibrillation; I95.9 Hypotension, unspecified; I11.0 Hypertensive heart disease with heart failure; E44.1 Mild protein-calorie malnutrition; J44.1 Chronic obstructive pulmonary disease with (acute) exacerbation; I25.10 Atherosclerotic heart disease of native coronary artery without angina pectoris; F14.10 Cocaine abuse, uncomplicated; F17.210 Nicotine dependence, cigarettes, uncomplicated; D63.8 Anemia in other chronic diseases classified elsewhere; T40.5X1A Poisoning by cocaine, accidental (unintentional), initial encounter; I25.5 Ischemic cardiomyopathy; E78.00 Pure hypercholesterolemia, unspecified; E78.5 Hyperlipidemia, unspecified; F10.10 Alcohol abuse, uncomplicated; G47.30 Sleep apnea, unspecified; I50.82 Biventricular heart failure; E87.6 Hypokalemia; Z82.49 Family history of ischemic heart disease and other diseases of the circulatory system; Z83.3 Family history of diabetes mellitus; Z91.11 Patient's noncompliance with dietary regimen; Z91.14 Patient's other noncompliance with medication regimen; Z79.82 Long term (current) use of aspirin; Z79.899 Other long term (current) drug therapy; Z68.1 Body mass index [BMI] 19.9 or less, adult; Z91.19 Patient's noncompliance with other medical treatment and regimen; Z71.51 Drug abuse counseling and surveillance of drug abuser
CPT/HCPCS: 36415; 36600; 71045; 80048; 80053; 80061; 80305; 80320; 82375; 82550; 82553; 82805; 83036; 83735; 83880; 84100; 84484; 85025; 93005; 93970; 94640; 97162; 97166; 99285; J1650; J1940; J2405; J2920; J7042; G0480

== ENCOUNTER 2021-02-18 11:14 | Inpatient (IN) | payer MEDICARE, MEDICAID ==
[~2021-02-18] VITALS: Ht 167.6 cm; Wt 46.3 kg
[~2021-02-18 11:14] MED LIST changes: +ASPI-986 PO; +FAMO20TA8 MT
[2021-02-18 11:54] LABS: BASOPHILS % 1.2 % (0.0-2.0); EOSINOPHILS % 3.4 % (0.0-5.0); HEMATOCRIT. 32.4 % (42.0-52.0); HEMOGLOBIN. 10.9 g/dL (14.0-18.0); LYMPHOCYTES % 29.4 % (20.0-50.0); MEAN CORPUSCULAR HEMOGLOBIN 26.5 pg (28.0-32.0); MEAN CORPUSCULAR VOLUME 78.9 fL (80.0-94.0); MEAN PLATELET VOLUME 9.5 fl (7.4-10.4); MONOCYTES % 8.2 % (2.0-8.0); NEUTROPHILS % 57.8 % (40.0-76.0); PLATELET 207 x1000/uL (130-400); RED CELL DISTRIBUTION WIDTH 17.1 % (11.6-14.6)
[2021-02-18 11:58] LABS: CLARITY URINE CLEAR (CLEAR); COLOR URINE YELLOW (YELLOW); KETONES URINE NEGATIVE (NEGATIVE); LEUKOCYTE ESTERASE URINE NEGATIVE (NEGATIVE); NITRITE URINE NEGATIVE (NEGATIVE); OCCULT BLOOD URINE TRACE (NEGATIVE); PH URINE 5.5 (4.5-8.0); PROTEIN URINE NEGATIVE (NEGATIVE); SPECIFIC GRAVITY URINE 1.016 (1.005-1.030)
[2021-02-18 12:00] LABS: CHLORIDE 107 mEq/L (98-107)
[2021-02-18 12:06] LABS: ETHANOL BLOOD < 10 mg/dL
[2021-02-18 12:10] LABS: CREATINE KINASE 38 IU/L (39-308)
[2021-02-18 12:11] LABS: *AMPHETAMINES SCREEN URINE NEGATIVE (NEGATIVE); *BARBITURATES SCREEN URINE NEGATIVE (NEGATIVE)
[2021-02-18 12:12] LABS: *BENZODIAZEPINES SCREEN URINE NEGATIVE (NEGATIVE); *COCAINE SCREEN URINE PRESUMTIVE POSITIVE (NEGATIVE); CANNABINOID URINE SCREEN NEGATIVE (NEGATIVE); METHADONE URINE SCREEN NEGATIVE (NEGATIVE); OPIATES URINE SCREEN NEGATIVE (NEGATIVE); PHENCYCLIDINE URINE SCREEN NEGATIVE (NEGATIVE)
[2021-02-18] MEDS ORDERED: HALOPERIDOL LACTATE 5MG/ML VIAL IM NR (12:30)
[2021-02-18 12:36] LABS: INR 1.1; PARTIAL THROMBOPLASTIN TIME 30.3 sec (23.4-31.0); PROTHROMBIN TIME 11.5 sec (9.6-11.0)
[2021-02-18] MEDS ORDERED: LORAZEPAM 2MG/ML CPJ IV ONE (13:15)
[2021-02-18] MEDS ORDERED: DIPHENHYDRAMINE 50MG/ML VIAL IV ONE (13:15)
[2021-02-18] MEDS ORDERED: ASPIRIN 81MG TABLET PO ONE (14:00)
[2021-02-18] MEDS ORDERED: ONDANSETRON HCL 4MG/2ML INJ IV PRN (15:00)
[2021-02-18] MEDS ORDERED: CLONIDINE 0.1MG TABLET PO PRN (15:00)
[2021-02-18 16:04] VITALS: BP 105/67
[2021-02-18 18:00] VITALS: BP 96/66
[2021-02-18 19:00] VITALS: BP 93/66
[2021-02-18 20:00] VITALS: BP 90/71
[2021-02-18 22:00] VITALS: BP 95/65
[2021-02-19] VITALS (10 sets, daily range): BP systolic 78–98; BP diastolic 45–65
[2021-02-19 06:16] LABS: BASOPHILS % 0.8 % (0.0-2.0); EOSINOPHILS % 4.4 % (0.0-5.0); HEMATOCRIT. 32.2 % (42.0-52.0); HEMOGLOBIN. 10.5 g/dL (14.0-18.0); LYMPHOCYTES % 23.8 % (20.0-50.0); MEAN CORPUSCULAR VOLUME 79.3 fL (80.0-94.0); MEAN PLATELET VOLUME 10.2 fl (7.4-10.4); MONOCYTES % 7.7 % (2.0-8.0); NEUTROPHILS % 63.3 % (40.0-76.0); PLATELET 183 x1000/uL (130-400); RED BLOOD CELL COUNT 4.06 mill/uL (4.7-6.1); RED CELL DISTRIBUTION WIDTH 17.4 % (11.6-14.6)
[2021-02-19 06:26] LABS: CHLORIDE 110 mEq/L (98-107)
[2021-02-19 06:34] LABS: HDL CHOLESTEROL 53 mg/dL (40-59)
[2021-02-19 06:35] LABS: LDL CHOLESTEROL 134 mg/dL (5-100)
[2021-02-19] MEDS: FUROSEMIDE 40MG TABLET PO SCH (10:11)
[2021-02-19] MEDS: MIDODRINE HCL 2.5MG TABLET PO SCH ×3 (10:13→22:00)
[2021-02-19] MEDS: ENOXAPARIN 30MG/0.3ML SYR SUBCUT SCH (15:00)
[2021-02-19] MEDS: LORAZEPAM 2MG/ML CPJ IV PRN ×2 (15:54→23:52)
[2021-02-19 18:27] LABS: CLARITY URINE CLEAR (CLEAR); COLOR URINE YELLOW (YELLOW); KETONES URINE NEGATIVE (NEGATIVE); LEUKOCYTE ESTERASE URINE NEGATIVE (NEGATIVE); NITRITE URINE NEGATIVE (NEGATIVE); OCCULT BLOOD URINE TRACE (NEGATIVE); PH URINE 6.5 (4.5-8.0); PROTEIN URINE NEGATIVE (NEGATIVE); SPECIFIC GRAVITY URINE 1.011 (1.005-1.030)
[2021-02-19] MEDS: THIAMINE HCL 100MG TABLET PO SCH (18:28)
[2021-02-19] MEDS: FOLIC ACID 1MG TABLET PO SCH (18:28)
[2021-02-19] MEDS: MULTIVITAMINS,THER W-MINERALS TABLET PO SCH (18:28)
[2021-02-19 20:40] LABS: T4 FREE 1.09 ng/dL (0.76-1.46)
[2021-02-19 20:58] LABS: FOLIC ACID (FOLATE) SERUM 9.8 ng/mL (>5.38)
[2021-02-20] VITALS (11 sets, daily range): BP systolic 89–113; BP diastolic 28–85
[2021-02-20 05:57] LABS: BASOPHILS % 1.1 % (0.0-2.0); EOSINOPHILS % 3.5 % (0.0-5.0); HEMATOCRIT. 32.2 % (42.0-52.0); HEMOGLOBIN. 10.8 g/dL (14.0-18.0); LYMPHOCYTES % 32.1 % (20.0-50.0); MEAN CORPUSCULAR HEMOGLOBIN 26.3 pg (28.0-32.0); MEAN CORPUSCULAR VOLUME 78.9 fL (80.0-94.0); MEAN PLATELET VOLUME 10.1 fl (7.4-10.4); MONOCYTES % 7.1 % (2.0-8.0); NEUTROPHILS % 56.2 % (40.0-76.0); PLATELET 191 x1000/uL (130-400); RED BLOOD CELL COUNT 4.08 mill/uL (4.7-6.1); RED CELL DISTRIBUTION WIDTH 17.1 % (11.6-14.6)
[2021-02-20] MEDS: MIDODRINE HCL 2.5MG TABLET PO SCH ×3 (06:00→21:29)
[2021-02-20 06:16] LABS: CHLORIDE 109 mEq/L (98-107)
[2021-02-20] MEDS: THIAMINE HCL 100MG TABLET PO SCH (10:29)
[2021-02-20] MEDS: FUROSEMIDE 40MG TABLET PO SCH (10:29)
[2021-02-20] MEDS: FOLIC ACID 1MG TABLET PO SCH (10:29)
[2021-02-20] MEDS: MULTIVITAMINS,THER W-MINERALS TABLET PO SCH (10:29)
[2021-02-20] MEDS: CHLORDIAZEPOXIDE 5 MG CAPSULE PO SCH ×2 (13:58→21:29)
[2021-02-20] MEDS: CHLORDIAZEPOXIDE 10MG CAPSULE PO SCH ×2 (13:58→21:29)
[2021-02-20] MEDS: ENOXAPARIN 30MG/0.3ML SYR SUBCUT SCH (15:00)
[2021-02-20] MEDS: LORAZEPAM 2MG/ML CPJ IV PRN (20:09)
[2021-02-21] VITALS (12 sets, daily range): BP systolic 99–116; BP diastolic 70–85
[2021-02-21] MEDS: LORAZEPAM 2MG/ML CPJ IV PRN ×2 (01:17→21:36)
[2021-02-21] MEDS: IPRATROPIUM/ALBUTEROL 0.5-3(2.5)MG/3ML NEB HHN PRN (03:49)
[2021-02-21] MEDS: CHLORDIAZEPOXIDE 10MG CAPSULE PO SCH ×3 (05:23→21:25)
[2021-02-21] MEDS: CHLORDIAZEPOXIDE 5 MG CAPSULE PO SCH ×3 (05:23→21:25)
[2021-02-21] MEDS: MIDODRINE HCL 2.5MG TABLET PO SCH ×3 (05:24→21:26)
[2021-02-21 07:06] LABS: BASOPHILS % 0.7 % (0.0-2.0); EOSINOPHILS % 1.1 % (0.0-5.0); HEMATOCRIT. 34.2 % (42.0-52.0); HEMOGLOBIN. 11.3 g/dL (14.0-18.0); MEAN CORPUSCULAR VOLUME 78.8 fL (80.0-94.0); MEAN PLATELET VOLUME 9.7 fl (7.4-10.4); MONOCYTES % 5.3 % (2.0-8.0); NEUTROPHILS % 76.9 % (40.0-76.0); PLATELET 215 x1000/uL (130-400); RED BLOOD CELL COUNT 4.34 mill/uL (4.7-6.1); RED CELL DISTRIBUTION WIDTH 17.2 % (11.6-14.6)
[2021-02-21 07:18] LABS: CHLORIDE 107 mEq/L (98-107)
[2021-02-21] MEDS: FUROSEMIDE 40MG TABLET PO SCH (09:21)
[2021-02-21] MEDS: THIAMINE HCL 100MG TABLET PO SCH (09:21)
[2021-02-21] MEDS: FOLIC ACID 1MG TABLET PO SCH (09:21)
[2021-02-21] MEDS: MULTIVITAMINS,THER W-MINERALS TABLET PO SCH (09:21)
[2021-02-21] MEDS: ENOXAPARIN 30MG/0.3ML SYR SUBCUT SCH (14:59)
[2021-02-21 22:13] LABS: BG BASE EXCESS -4.7 mmol/L (-2.0-2.0); BG CARBOXYHEMOGLOBIN 0.5 % (0.5-1.5); BG DEOXYHEMOGLOBIN 3.5 % (0.0-5.0); BG FRACTION INSPIRED OXYGEN 40; BG HCO3 ACT 16.9 mmol/L (22.0-26.0); BG METHEMOGLOBIN 0.2 % (0.0-1.5); BG OXYGEN SATURATION 96.5 % (92.0-98.5); BG OXYHEMOGLOBIN 95.8 % (94.0-97.0); BG PCO2 22.9 mmHg (35.0-45.0); BG PH 7.485 (7.350-7.450); BG PO2 86.3 mmHg (75.0-100.0); BG SAMPLE SITE RIGHT RADIAL; BG TOTAL HEMOGLOBIN 12.6 g/dL (12.0-18.0); BG VENT MODE NASAL CANNULA
[2021-02-21] MEDS ORDERED: METOPROLOL TARTRATE 5MG/5ML VIAL IV NR (22:45)
[2021-02-22] VITALS: BP 104/77
[2021-02-22 01:53] VITALS: BP 107/68
[2021-02-22] MEDS: LORAZEPAM 2MG/ML CPJ IV PRN (03:46)
[2021-02-22 04:00] VITALS: BP 108/69
[2021-02-22] MEDS: CHLORDIAZEPOXIDE 10MG CAPSULE PO SCH ×3 (05:49→21:18)
[2021-02-22] MEDS: CHLORDIAZEPOXIDE 5 MG CAPSULE PO SCH ×3 (06:00→21:18)
[2021-02-22] MEDS: MIDODRINE HCL 2.5MG TABLET PO SCH ×3 (06:00→21:14)
[2021-02-22 07:23] LABS: BASOPHILS % 0.7 % (0.0-2.0); EOSINOPHILS % 0.3 % (0.0-5.0); HEMATOCRIT. 35.9 % (42.0-52.0); HEMOGLOBIN. 11.8 g/dL (14.0-18.0); MEAN CORPUSCULAR HEMOGLOBIN 26.3 pg (28.0-32.0); MEAN CORPUSCULAR VOLUME 79.9 fL (80.0-94.0); MEAN PLATELET VOLUME 11.2 fl (7.4-10.4); MONOCYTES % 4.9 % (2.0-8.0); NEUTROPHILS % 75.1 % (40.0-76.0); PLATELET 233 x1000/uL (130-400); RED BLOOD CELL COUNT 4.49 mill/uL (4.7-6.1); RED CELL DISTRIBUTION WIDTH 17.6 % (11.6-14.6)
[2021-02-22 07:46] LABS: CHLORIDE 106 mEq/L (98-107)
[2021-02-22 08:00] VITALS: BP 93/62
[2021-02-22] MEDS: FUROSEMIDE 40MG TABLET PO SCH (10:29)
[2021-02-22] MEDS: THIAMINE HCL 100MG TABLET PO SCH (10:30)
[2021-02-22] MEDS: FOLIC ACID 1MG TABLET PO SCH (10:30)
[2021-02-22] MEDS: MULTIVITAMINS,THER W-MINERALS TABLET PO SCH (10:30)
[2021-02-22] MEDS: ENOXAPARIN 30MG/0.3ML SYR SUBCUT SCH (14:28)
[2021-02-22 16:00] VITALS: BP 104/68
[2021-02-22 20:00] VITALS: BP 104/68
[2021-02-23] VITALS: BP 105/79
[2021-02-23] MEDS: LORAZEPAM 2MG/ML CPJ IV PRN (00:17)
[2021-02-23] MEDS: HALOPERIDOL LACTATE 5MG/ML VIAL IM PRN (01:48)
[2021-02-23] MEDS ORDERED: DIGOXIN 500MCG/2ML AMP IV NR (02:30)
[2021-02-23 04:00] VITALS: BP 108/79
[2021-02-23] MEDS: MIDODRINE HCL 2.5MG TABLET PO SCH ×3 (05:53→21:21)
[2021-02-23] MEDS: CHLORDIAZEPOXIDE 10MG CAPSULE PO SCH ×3 (05:57→21:20)
[2021-02-23] MEDS: CHLORDIAZEPOXIDE 5 MG CAPSULE PO SCH ×3 (05:57→21:20)
[2021-02-23 06:08] LABS: HEMATOCRIT. 37.6 % (42.0-52.0); HEMOGLOBIN. 11.9 g/dL (14.0-18.0); MEAN CORPUSCULAR HEMOGLOBIN 25.9 pg (28.0-32.0); MEAN CORPUSCULAR VOLUME 82.2 fL (80.0-94.0); MEAN PLATELET VOLUME 11.2 fl (7.4-10.4); PLATELET 211 x1000/uL (130-400); RED BLOOD CELL COUNT 4.58 mill/uL (4.7-6.1); RED CELL DISTRIBUTION WIDTH 18.3 % (11.6-14.6)
[2021-02-23 06:16] LABS: CHLORIDE 109 mEq/L (98-107)
[2021-02-23 06:31] LABS: CREATINE KINASE 109 IU/L (39-308)
[2021-02-23 06:33] LABS: CREATINE KINASE MB FRACTION 1.2 ng/mL (0.5-3.6)
[2021-02-23 08:00] VITALS: BP 89/67
[2021-02-23] MEDS: FUROSEMIDE 40MG TABLET PO SCH (09:00)
[2021-02-23] MEDS: THIAMINE HCL 100MG TABLET PO SCH (09:00)
[2021-02-23] MEDS: FOLIC ACID 1MG TABLET PO SCH (09:00)
[2021-02-23] MEDS: MULTIVITAMINS,THER W-MINERALS TABLET PO SCH (09:00)
[2021-02-23 12:00] VITALS: BP 97/65
[2021-02-23] MEDS: CLOPIDOGREL 75MG TABLET PO SCH (14:56)
[2021-02-23] MEDS: ASPIRIN 81MG EC TABLET PO SCH (14:56)
[2021-02-23] MEDS: ENOXAPARIN 30MG/0.3ML SYR SUBCUT SCH (15:46)
[2021-02-23 16:00] VITALS: BP 110/72
[2021-02-23 17:42] LABS: PLATELET ESTIMATE NORMAL
[2021-02-23 20:00] VITALS: BP 103/78
[2021-02-24] VITALS: BP 103/78
[2021-02-24 04:00] VITALS: BP 103/78
[2021-02-24] MEDS: CHLORDIAZEPOXIDE 5 MG CAPSULE PO SCH ×3 (05:28→22:00)
[2021-02-24] MEDS: MIDODRINE HCL 2.5MG TABLET PO SCH ×3 (05:29→22:27)
[2021-02-24] MEDS: CHLORDIAZEPOXIDE 10MG CAPSULE PO SCH ×3 (05:29→22:26)
[2021-02-24 06:55] LABS: CHLORIDE 114 mEq/L (98-107)
[2021-02-24 07:03] LABS: BASOPHILS % 0.6 % (0.0-2.0); EOSINOPHILS % 0.7 % (0.0-5.0); HEMATOCRIT. 33.8 % (42.0-52.0); HEMOGLOBIN. 11.2 g/dL (14.0-18.0); LYMPHOCYTES % 11.7 % (20.0-50.0); MEAN CORPUSCULAR HEMOGLOBIN 26.2 pg (28.0-32.0); MEAN CORPUSCULAR VOLUME 79.1 fL (80.0-94.0); MEAN PLATELET VOLUME 11.4 fl (7.4-10.4); MONOCYTES % 4.3 % (2.0-8.0); NEUTROPHILS % 82.7 % (40.0-76.0); PLATELET 199 x1000/uL (130-400); RED BLOOD CELL COUNT 4.27 mill/uL (4.7-6.1); RED CELL DISTRIBUTION WIDTH 17.7 % (11.6-14.6)
[2021-02-24 08:00] VITALS: BP 118/80
[2021-02-24] MEDS: FOLIC ACID 1MG TABLET PO SCH (08:52)
[2021-02-24] MEDS: ASPIRIN 81MG EC TABLET PO SCH (08:52)
[2021-02-24] MEDS: MULTIVITAMINS,THER W-MINERALS TABLET PO SCH (08:52)
[2021-02-24] MEDS: FUROSEMIDE 40MG TABLET PO SCH (08:52)
[2021-02-24] MEDS: CLOPIDOGREL 75MG TABLET PO SCH (08:52)
[2021-02-24] MEDS: THIAMINE HCL 100MG TABLET PO SCH (08:52)
[2021-02-24 12:00] VITALS: BP 120/77
[2021-02-24] MEDS: ENOXAPARIN 30MG/0.3ML SYR SUBCUT SCH (15:54)
[2021-02-24 16:00] VITALS: BP 110/74
[2021-02-25] VITALS (10 sets, daily range): BP systolic 99–111; BP diastolic 53–78
[2021-02-25] MEDS: CHLORDIAZEPOXIDE 10MG CAPSULE PO SCH ×2 (05:55→14:11)
[2021-02-25] MEDS: ACETAMINOPHEN 325MG TABLET PO PRN (05:56)
[2021-02-25] MEDS: MIDODRINE HCL 2.5MG TABLET PO SCH ×3 (05:56→22:58)
[2021-02-25] MEDS: CHLORDIAZEPOXIDE 5 MG CAPSULE PO SCH ×2 (06:16→14:10)
[2021-02-25 07:20] LABS: BASOPHILS % 0.6 % (0.0-2.0); EOSINOPHILS % 0.5 % (0.0-5.0); HEMATOCRIT. 35.4 % (42.0-52.0); HEMOGLOBIN. 11.5 g/dL (14.0-18.0); LYMPHOCYTES % 11.5 % (20.0-50.0); MEAN CORPUSCULAR HEMOGLOBIN 25.5 pg (28.0-32.0); MEAN CORPUSCULAR VOLUME 78.7 fL (80.0-94.0); MEAN PLATELET VOLUME 10.8 fl (7.4-10.4); MONOCYTES % 4.3 % (2.0-8.0); NEUTROPHILS % 83.1 % (40.0-76.0); PLATELET 242 x1000/uL (130-400); RED BLOOD CELL COUNT 4.49 mill/uL (4.7-6.1)
[2021-02-25 07:30] LABS: CHLORIDE 115 mEq/L (98-107)
[2021-02-25] MEDS: FOLIC ACID 1MG TABLET PO SCH (09:31)
[2021-02-25] MEDS: CLOPIDOGREL 75MG TABLET PO SCH (09:31)
[2021-02-25] MEDS: MULTIVITAMINS,THER W-MINERALS TABLET PO SCH (09:31)
[2021-02-25] MEDS: THIAMINE HCL 100MG TABLET PO SCH (09:32)
[2021-02-25] MEDS: CYANOCOBALAMIN 1000MCG/ML VIAL IM SCH (09:32)
[2021-02-25] MEDS: ASPIRIN 81MG EC TABLET PO SCH (09:32)
[2021-02-25] MEDS: FUROSEMIDE 40MG TABLET PO SCH (09:32)
[2021-02-25 09:47] LABS: BG BASE EXCESS -1.6 mmol/L (-2.0-2.0); BG CARBOXYHEMOGLOBIN 0.1 % (0.5-1.5); BG DEOXYHEMOGLOBIN 3.1 % (0.0-5.0); BG FRACTION INSPIRED OXYGEN 28; BG HCO3 ACT 20.8 mmol/L (22.0-26.0); BG METHEMOGLOBIN 0.3 % (0.0-1.5); BG OXYGEN SATURATION 96.9 % (92.0-98.5); BG OXYHEMOGLOBIN 96.5 % (94.0-97.0); BG PCO2 28.2 mmHg (35.0-45.0); BG PH 7.485 (7.350-7.450); BG PO2 94.1 mmHg (75.0-100.0); BG SAMPLE SITE RIGHT RADIAL; BG VENT MODE NASAL CANNULA
[2021-02-25] MEDS ORDERED: POTASSIUM CHLORIDE 20MEQ/PACKET PO NR (14:15)
[2021-02-25] MEDS: ENOXAPARIN 30MG/0.3ML SYR SUBCUT SCH (14:51)
[2021-02-26] VITALS: BP 96/54
[2021-02-26 05:19] LABS: CHLORIDE 116 mEq/L (98-107)
[2021-02-26 05:27] LABS: BASOPHILS % 0.6 % (0.0-2.0); EOSINOPHILS % 0.3 % (0.0-5.0); HEMATOCRIT. 35.7 % (42.0-52.0); HEMOGLOBIN. 11.8 g/dL (14.0-18.0); LYMPHOCYTES % 11.1 % (20.0-50.0); MEAN CORPUSCULAR VOLUME 78.8 fL (80.0-94.0); MEAN PLATELET VOLUME 10.8 fl (7.4-10.4); MONOCYTES % 5.4 % (2.0-8.0); NEUTROPHILS % 82.6 % (40.0-76.0); PLATELET 228 x1000/uL (130-400); RED BLOOD CELL COUNT 4.53 mill/uL (4.7-6.1); RED CELL DISTRIBUTION WIDTH 17.8 % (11.6-14.6)
[2021-02-26] MEDS: MIDODRINE HCL 2.5MG TABLET PO SCH ×3 (06:07→21:35)
[2021-02-26 08:00] VITALS: BP 102/59
[2021-02-26] MEDS: THIAMINE HCL 100MG TABLET PO SCH (08:23)
[2021-02-26] MEDS: MULTIVITAMINS,THER W-MINERALS TABLET PO SCH (08:23)
[2021-02-26] MEDS: ASPIRIN 81MG EC TABLET PO SCH (08:23)
[2021-02-26] MEDS: FUROSEMIDE 40MG TABLET PO SCH (08:23)
[2021-02-26] MEDS: FOLIC ACID 1MG TABLET PO SCH (08:23)
[2021-02-26] MEDS: CYANOCOBALAMIN 1000MCG/ML VIAL IM SCH (08:23)
[2021-02-26] MEDS: CLOPIDOGREL 75MG TABLET PO SCH (08:25)
[2021-02-26] MEDS ORDERED: POTASSIUM CHLORIDE 20MEQ/PACKET PO NR (09:15)
[2021-02-26 12:00] VITALS: BP 110/62
[2021-02-26] MEDS: ENOXAPARIN 30MG/0.3ML SYR SUBCUT SCH (15:49)
[2021-02-26 16:00] VITALS: BP 115/68
[2021-02-26 20:00] VITALS: BP 102/66
[2021-02-26 22:00] VITALS: BP 91/57
[2021-02-27] VITALS (14 sets, daily range): BP systolic 81–104; BP diastolic 50–70
[2021-02-27] MEDS: HYDROCODONE/ACETAMINOPHEN 5/325MG TABLET PO PRN ×3 (01:21→21:13)
[2021-02-27] MEDS: MIDODRINE HCL 2.5MG TABLET PO SCH (05:50)
[2021-02-27 07:11] LABS: BASOPHILS % 0.7 % (0.0-2.0); EOSINOPHILS % 1.1 % (0.0-5.0); HEMATOCRIT. 35.3 % (42.0-52.0); HEMOGLOBIN. 11.7 g/dL (14.0-18.0); LYMPHOCYTES % 16.3 % (20.0-50.0); MEAN CORPUSCULAR HEMOGLOBIN 26.5 pg (28.0-32.0); MEAN CORPUSCULAR VOLUME 79.7 fL (80.0-94.0); MEAN PLATELET VOLUME 10.8 fl (7.4-10.4); MONOCYTES % 6.7 % (2.0-8.0); NEUTROPHILS % 75.2 % (40.0-76.0); PLATELET 219 x1000/uL (130-400); RED BLOOD CELL COUNT 4.43 mill/uL (4.7-6.1); RED CELL DISTRIBUTION WIDTH 18.3 % (11.6-14.6)
[2021-02-27 07:19] LABS: CHLORIDE 119 mEq/L (98-107)
[2021-02-27] MEDS: FUROSEMIDE 20MG TABLET PO SCH (08:35)
[2021-02-27] MEDS: CLOPIDOGREL 75MG TABLET PO SCH (08:35)
[2021-02-27] MEDS: FOLIC ACID 1MG TABLET PO SCH (08:35)
[2021-02-27] MEDS: CYANOCOBALAMIN 1000MCG/ML VIAL IM SCH (08:35)
[2021-02-27] MEDS: ASPIRIN 81MG EC TABLET PO SCH (08:35)
[2021-02-27] MEDS: MULTIVITAMINS,THER W-MINERALS TABLET PO SCH (08:36)
[2021-02-27] MEDS: THIAMINE HCL 100MG TABLET PO SCH (08:55)
[2021-02-27 13:47] LABS: BG BASE EXCESS 2.4 mmol/L (-2.0-2.0); BG CARBOXYHEMOGLOBIN 0.4 % (0.5-1.5); BG DEOXYHEMOGLOBIN 2.8 % (0.0-5.0); BG FRACTION INSPIRED OXYGEN 24; BG METHEMOGLOBIN 0.2 % (0.0-1.5); BG OXYGEN SATURATION 97.2 % (92.0-98.5); BG OXYHEMOGLOBIN 96.6 % (94.0-97.0); BG PCO2 32.3 mmHg (35.0-45.0); BG PH 7.506 (7.350-7.450); BG PO2 93.6 mmHg (75.0-100.0); BG SAMPLE SITE RIGHT RADIAL; BG TOTAL HEMOGLOBIN 12.5 g/dL (12.0-18.0); BG VENT MODE NASAL CANNULA
[2021-02-27] MEDS: MIDODRINE HCL 5MG TABLET NG SCH ×2 (14:56→21:12)
[2021-02-27] MEDS: ENOXAPARIN 30MG/0.3ML SYR SUBCUT SCH (15:11)
[2021-02-27] MEDS: PIPERACILLIN/TAZOBACTAM 2.25 G in DEXTROSE 5% WATER 50 ML IV SCH ×2 (15:11→20:21)
[2021-02-28] VITALS (67 sets, daily range): BP systolic 72–107; BP diastolic 47–82
[2021-02-28] MEDS: PIPERACILLIN/TAZOBACTAM 2.25 G in DEXTROSE 5% WATER 50 ML IV SCH ×4 (02:05→21:09)
[2021-02-28] MEDS: MIDODRINE HCL 5MG TABLET NG SCH ×3 (05:28→21:10)
[2021-02-28] MEDS: DOPAMINE 400MG/250ML PREMIX 250 ML IV PRN ×2 (05:38→18:38)
[2021-02-28 06:03] LABS: BASOPHILS % 0.8 % (0.0-2.0); EOSINOPHILS % 2.7 % (0.0-5.0); HEMATOCRIT. 34.2 % (42.0-52.0); HEMOGLOBIN. 11.3 g/dL (14.0-18.0); LYMPHOCYTES % 15.2 % (20.0-50.0); MEAN CORPUSCULAR HEMOGLOBIN 26.3 pg (28.0-32.0); MEAN CORPUSCULAR VOLUME 79.6 fL (80.0-94.0); MEAN PLATELET VOLUME 11.1 fl (7.4-10.4); MONOCYTES % 7.3 % (2.0-8.0); PLATELET 221 x1000/uL (130-400); RED CELL DISTRIBUTION WIDTH 18.1 % (11.6-14.6)
[2021-02-28 06:09] LABS: CHLORIDE 120 mEq/L (98-107)
[2021-02-28] MEDS ORDERED: DOPAMINE 400MG/250ML PREMIX 250 ML IV SCH ×2 (07:15→07:18)
[2021-02-28] MEDS: FUROSEMIDE 20MG TABLET PO SCH (09:00)
[2021-02-28] MEDS: ASPIRIN 81MG EC TABLET PO SCH (09:00)
[2021-02-28] MEDS: CYANOCOBALAMIN 1000MCG/ML VIAL IM SCH (10:01)
[2021-02-28] MEDS: FOLIC ACID 1MG TABLET PO SCH (10:01)
[2021-02-28] MEDS: THIAMINE HCL 100MG TABLET PO SCH (10:01)
[2021-02-28] MEDS: MULTIVITAMINS,THER W-MINERALS TABLET PO SCH (10:02)
[2021-02-28] MEDS: CLOPIDOGREL 75MG TABLET PO SCH (10:02)
[2021-02-28] MEDS: DEXTROSE 5% WATER 1,000 ML IV SCH (10:06)
[2021-02-28] MEDS: ENOXAPARIN 30MG/0.3ML SYR SUBCUT SCH (15:11)
[2021-03-01] VITALS (131 sets, daily range): BP systolic 60–130; BP diastolic 21–85
[2021-03-01] MEDS: PIPERACILLIN/TAZOBACTAM 2.25 G in DEXTROSE 5% WATER 50 ML IV SCH ×4 (02:03→21:20)
[2021-03-01 05:42] LABS: BASOPHILS % 0.9 % (0.0-2.0); EOSINOPHILS % 3.2 % (0.0-5.0); HEMATOCRIT. 36.2 % (42.0-52.0); HEMOGLOBIN. 11.7 g/dL (14.0-18.0); LYMPHOCYTES % 14.9 % (20.0-50.0); MEAN CORPUSCULAR HEMOGLOBIN 25.8 pg (28.0-32.0); MEAN CORPUSCULAR VOLUME 80.1 fL (80.0-94.0); MEAN PLATELET VOLUME 10.3 fl (7.4-10.4); MONOCYTES % 8.3 % (2.0-8.0); NEUTROPHILS % 72.7 % (40.0-76.0); PLATELET 239 x1000/uL (130-400); RED BLOOD CELL COUNT 4.53 mill/uL (4.7-6.1); RED CELL DISTRIBUTION WIDTH 18.3 % (11.6-14.6)
[2021-03-01 05:47] LABS: CHLORIDE 114 mEq/L (98-107)
[2021-03-01] MEDS: MIDODRINE HCL 5MG TABLET NG SCH ×3 (06:18→21:20)
[2021-03-01] MEDS: DOPAMINE 400MG/250ML PREMIX 250 ML IV PRN ×2 (06:41→16:38)
[2021-03-01] MEDS ORDERED: DOBUTAMINE 250MG PREMIX 250 ML IV SCH (08:00)
[2021-03-01] MEDS: CLOPIDOGREL 75MG TABLET PO SCH (08:48)
[2021-03-01] MEDS: FUROSEMIDE 20MG TABLET PO SCH (08:48)
[2021-03-01] MEDS: FOLIC ACID 1MG TABLET PO SCH (08:48)
[2021-03-01] MEDS: ASPIRIN 81MG EC TABLET PO SCH (08:48)
[2021-03-01] MEDS: THIAMINE HCL 100MG TABLET PO SCH (08:48)
[2021-03-01] MEDS: MULTIVITAMINS,THER W-MINERALS TABLET PO SCH (08:48)
[2021-03-01] MEDS: DEXTROSE 5% WATER 1,000 ML IV SCH (08:49)
[2021-03-01] MEDS ORDERED: DEXTROSE 50% WATER 50ML SYRINGE IV PRN (11:15)
[2021-03-01] MEDS: BLOOD SUGAR DIAGNOSTIC STRIP TEST SCH ×2 (11:47→17:16)
[2021-03-01] MEDS ORDERED: BLOOD SUGAR DIAGNOSTIC STRIP TEST SCH (12:50)
[2021-03-01] MEDS: INSULIN LISPRO 100 UNITS/ML SUBCUT SCH ×2 (13:16→17:16)
[2021-03-01] MEDS ORDERED: INSULIN LISPRO 100 UNITS/ML SUBCUT SCH (13:20)
[2021-03-01] MEDS: ENOXAPARIN 30MG/0.3ML SYR SUBCUT SCH (15:04)
[2021-03-01] MEDS: DOBUTAMINE 250MG PREMIX 250 ML IV PRN (19:27)
[2021-03-01 20:19] LABS: BG BASE EXCESS 2.8 mmol/L (-2.0-2.0); BG CARBOXYHEMOGLOBIN 0.3 % (0.5-1.5); BG DEOXYHEMOGLOBIN 2.4 % (0.0-5.0); BG FRACTION INSPIRED OXYGEN 21; BG HCO3 ACT 26.8 mmol/L (22.0-26.0); BG METHEMOGLOBIN 0.5 % (0.0-1.5); BG OXYGEN SATURATION 97.6 % (92.0-98.5); BG OXYHEMOGLOBIN 96.8 % (94.0-97.0); BG PCO2 39.3 mmHg (35.0-45.0); BG PH 7.452 (7.350-7.450); BG SAMPLE SITE RIGHT RADIAL; BG TOTAL HEMOGLOBIN 11.8 g/dL (12.0-18.0); BG VENT MODE ROOM AIR
[2021-03-01] MEDS: PHENYLEPHRINE 100 MG in DEXT 5% WATER 240 ML IV PRN (20:22)
[2021-03-02] VITALS (105 sets, daily range): BP systolic 70–171; BP diastolic 19–129
[2021-03-02] MEDS ORDERED: POTASSIUM CHLORIDE 20MEQ TABLET SR PO SCH
[2021-03-02] MEDS ORDERED: DOPAMINE 400MG/250ML PREMIX 250 ML IV PRN
[2021-03-02] MEDS: DOPAMINE 400MG/250ML PREMIX 250 ML IV PRN (01:46)
[2021-03-02] MEDS: PIPERACILLIN/TAZOBACTAM 2.25 G in DEXTROSE 5% WATER 50 ML IV SCH ×4 (03:39→20:10)
[2021-03-02 05:50] LABS: BASOPHILS % 0.8 % (0.0-2.0); EOSINOPHILS % 2.9 % (0.0-5.0); HEMATOCRIT. 30.5 % (42.0-52.0); LYMPHOCYTES % 19.7 % (20.0-50.0); MEAN CORPUSCULAR HEMOGLOBIN 25.9 pg (28.0-32.0); MEAN CORPUSCULAR VOLUME 78.8 fL (80.0-94.0); MEAN PLATELET VOLUME 10.4 fl (7.4-10.4); MONOCYTES % 8.1 % (2.0-8.0); NEUTROPHILS % 68.5 % (40.0-76.0); PLATELET 211 x1000/uL (130-400); RED BLOOD CELL COUNT 3.87 mill/uL (4.7-6.1)
[2021-03-02 05:52] LABS: CHLORIDE 106 mEq/L (98-107)
[2021-03-02] MEDS: INSULIN LISPRO 100 UNITS/ML SUBCUT SCH ×5 (06:00→23:58)
[2021-03-02] MEDS: MIDODRINE HCL 5MG TABLET NG SCH ×3 (06:28→21:24)
[2021-03-02] MEDS: BLOOD SUGAR DIAGNOSTIC STRIP TEST SCH ×5 (06:29→23:58)
[2021-03-02] MEDS: PHENYLEPHRINE 100 MG in DEXT 5% WATER 240 ML IV PRN (08:31)
[2021-03-02] MEDS: ASPIRIN 81MG EC TABLET PO SCH (09:20)
[2021-03-02] MEDS: FOLIC ACID 1MG TABLET PO SCH (09:20)
[2021-03-02] MEDS: CLOPIDOGREL 75MG TABLET PO SCH (09:20)
[2021-03-02] MEDS: FUROSEMIDE 20MG TABLET PO SCH (09:20)
[2021-03-02] MEDS: THIAMINE HCL 100MG TABLET PO SCH (09:21)
[2021-03-02] MEDS: MULTIVITAMINS,THER W-MINERALS TABLET PO SCH (09:21)
[2021-03-02] MEDS: DEXTROSE 5% WATER 1,000 ML IV SCH (09:32)
[2021-03-02] MEDS: DOBUTAMINE 250MG PREMIX 250 ML IV PRN (13:50)
[2021-03-02] MEDS: ENOXAPARIN 30MG/0.3ML SYR SUBCUT SCH (16:30)
[2021-03-02] MEDS: HALOPERIDOL LACTATE 5MG/ML VIAL IM PRN (19:51)
[2021-03-02] MEDS: DIPHENHYDRAMINE 50MG/ML VIAL IV PRN (20:13)
[2021-03-02] MEDS: ACETAMINOPHEN 325MG TABLET PO PRN (23:59)
[2021-03-03] VITALS (85 sets, daily range): BP systolic 43–130; BP diastolic 18–82
[2021-03-03] MEDS: PIPERACILLIN/TAZOBACTAM 2.25 G in DEXTROSE 5% WATER 50 ML IV SCH ×4 (02:28→20:52)
[2021-03-03] MEDS: MIDODRINE HCL 5MG TABLET NG SCH ×3 (05:04→23:31)
[2021-03-03 05:49] LABS: BASOPHILS % 1.2 % (0.0-2.0); EOSINOPHILS % 3.8 % (0.0-5.0); HEMATOCRIT. 32.5 % (42.0-52.0); HEMOGLOBIN. 10.5 g/dL (14.0-18.0); LYMPHOCYTES % 27.8 % (20.0-50.0); MEAN CORPUSCULAR HEMOGLOBIN 25.6 pg (28.0-32.0); MEAN CORPUSCULAR VOLUME 79.4 fL (80.0-94.0); MEAN PLATELET VOLUME 10.5 fl (7.4-10.4); MONOCYTES % 9.9 % (2.0-8.0); NEUTROPHILS % 57.3 % (40.0-76.0); PLATELET 202 x1000/uL (130-400); RED BLOOD CELL COUNT 4.09 mill/uL (4.7-6.1); RED CELL DISTRIBUTION WIDTH 17.5 % (11.6-14.6)
[2021-03-03 05:57] LABS: CHLORIDE 110 mEq/L (98-107)
[2021-03-03] MEDS: BLOOD SUGAR DIAGNOSTIC STRIP TEST SCH ×4 (05:57→23:31)
[2021-03-03] MEDS: INSULIN LISPRO 100 UNITS/ML SUBCUT SCH ×4 (05:57→23:34)
[2021-03-03] MEDS: FOLIC ACID 1MG TABLET PO SCH (09:23)
[2021-03-03] MEDS: FUROSEMIDE 20MG TABLET PO SCH (09:23)
[2021-03-03] MEDS: ASPIRIN 81MG EC TABLET PO SCH (09:23)
[2021-03-03] MEDS: CLOPIDOGREL 75MG TABLET PO SCH (09:23)
[2021-03-03] MEDS: MULTIVITAMINS,THER W-MINERALS TABLET PO SCH (09:23)
[2021-03-03] MEDS: DEXTROSE 5% WATER 1,000 ML IV SCH (09:23)
[2021-03-03] MEDS: THIAMINE HCL 100MG TABLET PO SCH (09:23)
[2021-03-03] MEDS: DOBUTAMINE 250MG PREMIX 250 ML IV PRN (10:39)
[2021-03-03] MEDS: PHENYLEPHRINE 100 MG in DEXT 5% WATER 240 ML IV PRN (10:39)
[2021-03-03] MEDS: ENOXAPARIN 30MG/0.3ML SYR SUBCUT SCH (14:00)
[2021-03-03] MEDS: HALOPERIDOL LACTATE 5MG/ML VIAL IM PRN (20:47)
[2021-03-03] MEDS: DIPHENHYDRAMINE 50MG/ML VIAL IV PRN (20:47)
[2021-03-03] MEDS ORDERED: NOREPINEPHRINE 32 MG in DEXT 5% WATER 218 ML IV PRN (23:30)
[2021-03-04] VITALS (79 sets, daily range): BP systolic 77–149; BP diastolic 36–81
[2021-03-04] MEDS: PIPERACILLIN/TAZOBACTAM 2.25 G in DEXTROSE 5% WATER 50 ML IV SCH ×2 (05:02→08:48)
[2021-03-04 05:44] LABS: EOSINOPHILS % 2.9 % (0.0-5.0); HEMATOCRIT. 34.5 % (42.0-52.0); HEMOGLOBIN. 11.2 g/dL (14.0-18.0); MEAN CORPUSCULAR HEMOGLOBIN 25.8 pg (28.0-32.0); MEAN CORPUSCULAR VOLUME 79.3 fL (80.0-94.0); MEAN PLATELET VOLUME 11.7 fl (7.4-10.4); MONOCYTES % 10.8 % (2.0-8.0); NEUTROPHILS % 56.3 % (40.0-76.0); PLATELET 229 x1000/uL (130-400); RED BLOOD CELL COUNT 4.35 mill/uL (4.7-6.1); RED CELL DISTRIBUTION WIDTH 17.7 % (11.6-14.6)
[2021-03-04] MEDS: INSULIN LISPRO 100 UNITS/ML SUBCUT SCH ×3 (05:44→18:00)
[2021-03-04] MEDS: BLOOD SUGAR DIAGNOSTIC STRIP TEST SCH ×3 (05:44→18:36)
[2021-03-04] MEDS: MIDODRINE HCL 5MG TABLET NG SCH ×3 (05:45→21:32)
[2021-03-04 05:46] LABS: CHLORIDE 109 mEq/L (98-107)
[2021-03-04] MEDS: DOBUTAMINE 250MG PREMIX 250 ML IV PRN (06:34)
[2021-03-04] MEDS: DEXTROSE 5% WATER 1,000 ML IV SCH (08:48)
[2021-03-04] MEDS: FOLIC ACID 1MG TABLET PO SCH (09:07)
[2021-03-04] MEDS: MULTIVITAMINS,THER W-MINERALS TABLET PO SCH (09:07)
[2021-03-04] MEDS: FUROSEMIDE 20MG TABLET PO SCH (09:07)
[2021-03-04] MEDS: THIAMINE HCL 100MG TABLET PO SCH (09:07)
[2021-03-04] MEDS: ASPIRIN 81MG EC TABLET PO SCH (09:07)
[2021-03-04] MEDS: CLOPIDOGREL 75MG TABLET PO SCH (09:07)
[2021-03-04] MEDS ORDERED: POTASSIUM CHLORIDE 20MEQ/PACKET PO SCH (10:30)
[2021-03-04] MEDS: ENOXAPARIN 30MG/0.3ML SYR SUBCUT SCH (15:06)
[2021-03-04] MEDS ORDERED: RISPERIDONE 0.25MG TABLET PO SCH (21:00)
[2021-03-04] MEDS: ATORVASTATIN CALCIUM 20MG TABLET PO SCH (21:31)
[2021-03-05] VITALS (72 sets, daily range): BP systolic 68–135; BP diastolic 29–90
[2021-03-05] MEDS: MIDODRINE HCL 5MG TABLET NG SCH ×3 (05:21→22:00)
[2021-03-05] MEDS: BLOOD SUGAR DIAGNOSTIC STRIP TEST SCH ×4 (06:00→17:53)
[2021-03-05] MEDS: INSULIN LISPRO 100 UNITS/ML SUBCUT SCH ×4 (06:00→17:53)
[2021-03-05 06:10] LABS: BASOPHILS % 0.9 % (0.0-2.0); EOSINOPHILS % 2.2 % (0.0-5.0); HEMATOCRIT. 36.9 % (42.0-52.0); HEMOGLOBIN. 11.9 g/dL (14.0-18.0); LYMPHOCYTES % 23.6 % (20.0-50.0); MEAN CORPUSCULAR HEMOGLOBIN 25.4 pg (28.0-32.0); MEAN CORPUSCULAR VOLUME 78.9 fL (80.0-94.0); MEAN PLATELET VOLUME 10.7 fl (7.4-10.4); MONOCYTES % 9.1 % (2.0-8.0); NEUTROPHILS % 64.2 % (40.0-76.0); PLATELET 265 x1000/uL (130-400); RED BLOOD CELL COUNT 4.67 mill/uL (4.7-6.1); RED CELL DISTRIBUTION WIDTH 18.4 % (11.6-14.6)
[2021-03-05 06:17] LABS: CHLORIDE 109 mEq/L (98-107)
[2021-03-05 06:25] LABS: PHOSPHORUS 2.9 mg/dL (2.5-4.9)
[2021-03-05] MEDS: PHENYLEPHRINE 100 MG in DEXT 5% WATER 240 ML IV PRN (08:56)
[2021-03-05] MEDS ORDERED: RISPERIDONE 0.25MG TABLET PO SCH (09:00)
[2021-03-05] MEDS: DEXTROSE 5% WATER 1,000 ML IV SCH (09:03)
[2021-03-05] MEDS: FOLIC ACID 1MG TABLET PO SCH (09:07)
[2021-03-05] MEDS: ASPIRIN 81MG EC TABLET PO SCH (09:07)
[2021-03-05] MEDS: CLOPIDOGREL 75MG TABLET PO SCH (09:07)
[2021-03-05] MEDS: THIAMINE HCL 100MG TABLET PO SCH (09:07)
[2021-03-05] MEDS: MULTIVITAMINS,THER W-MINERALS TABLET PO SCH (09:07)
[2021-03-05] MEDS: ENOXAPARIN 30MG/0.3ML SYR SUBCUT SCH (14:06)
[2021-03-05] MEDS: ATORVASTATIN CALCIUM 20MG TABLET PO SCH (21:57)
[2021-03-05] MEDS: LORAZEPAM 2MG/ML CPJ IV PRN (21:58)
[2021-03-06] VITALS (88 sets, daily range): BP systolic 84–134; BP diastolic 30–91
[2021-03-06] MEDS: BLOOD SUGAR DIAGNOSTIC STRIP TEST SCH ×4 (00:05→18:42)
[2021-03-06] MEDS: PHENYLEPHRINE 100 MG in DEXT 5% WATER 240 ML IV PRN ×2 (05:08→23:46)
[2021-03-06] MEDS: MIDODRINE HCL 5MG TABLET NG SCH ×3 (06:00→22:00)
[2021-03-06] MEDS: INSULIN LISPRO 100 UNITS/ML SUBCUT SCH ×4 (06:00→18:00)
[2021-03-06 06:07] LABS: BASOPHILS % 0.8 % (0.0-2.0); EOSINOPHILS % 0.4 % (0.0-5.0); HEMATOCRIT. 36.1 % (42.0-52.0); HEMOGLOBIN. 11.6 g/dL (14.0-18.0); LYMPHOCYTES % 15.5 % (20.0-50.0); MEAN CORPUSCULAR HEMOGLOBIN 25.2 pg (28.0-32.0); MEAN CORPUSCULAR VOLUME 78.7 fL (80.0-94.0); MONOCYTES % 6.4 % (2.0-8.0); NEUTROPHILS % 76.9 % (40.0-76.0); PLATELET 242 x1000/uL (130-400); RED BLOOD CELL COUNT 4.59 mill/uL (4.7-6.1); RED CELL DISTRIBUTION WIDTH 18.1 % (11.6-14.6)
[2021-03-06 06:10] LABS: CHLORIDE 108 mEq/L (98-107)
[2021-03-06] MEDS: LORAZEPAM 2MG/ML CPJ IV PRN ×2 (07:32→18:56)
[2021-03-06] MEDS: MULTIVITAMINS,THER W-MINERALS TABLET PO SCH (09:00)
[2021-03-06] MEDS: FOLIC ACID 1MG TABLET PO SCH (09:00)
[2021-03-06] MEDS: ASPIRIN 81MG EC TABLET PO SCH (09:00)
[2021-03-06] MEDS: CLOPIDOGREL 75MG TABLET PO SCH (09:00)
[2021-03-06] MEDS: THIAMINE HCL 100MG TABLET PO SCH (09:00)
[2021-03-06] MEDS: DEXTROSE 5% WATER 1,000 ML IV SCH (11:07)
[2021-03-06 11:15] LABS: BG BASE EXCESS -3.2 mmol/L (-2.0-2.0); BG DEOXYHEMOGLOBIN 3.3 % (0.0-5.0); BG HCO3 ACT 17.2 mmol/L (22.0-26.0); BG METHEMOGLOBIN 0.1 % (0.0-1.5); BG OXYGEN SATURATION 96.7 % (92.0-98.5); BG OXYHEMOGLOBIN 96.6 % (94.0-97.0); BG PCO2 20.1 mmHg (35.0-45.0); BG PO2 80.7 mmHg (75.0-100.0); BG SAMPLE SITE RIGHT RADIAL; BG VENT MODE ROOM AIR
[2021-03-06] MEDS: IPRATROPIUM/ALBUTEROL 0.5-3(2.5)MG/3ML NEB HHN PRN (12:12)
[2021-03-06] MEDS: ENOXAPARIN 30MG/0.3ML SYR SUBCUT SCH (14:22)
[2021-03-06] MEDS: ATORVASTATIN CALCIUM 20MG TABLET PO SCH (21:00)
[2021-03-07] VITALS (89 sets, daily range): BP systolic 61–122; BP diastolic 21–85
[2021-03-07] MEDS: BLOOD SUGAR DIAGNOSTIC STRIP TEST SCH ×5 (00:34→23:28)
[2021-03-07] MEDS: IPRATROPIUM/ALBUTEROL 0.5-3(2.5)MG/3ML NEB HHN SCH ×3 (02:06→15:27)
[2021-03-07] MEDS: LORAZEPAM 2MG/ML CPJ IV PRN ×3 (02:36→22:22)
[2021-03-07] MEDS ORDERED: IOHEXOL-350 100 ML BOTTLE ONE (04:00)
[2021-03-07 05:49] LABS: BASOPHILS % 0.5 % (0.0-2.0); EOSINOPHILS % 0.6 % (0.0-5.0); HEMATOCRIT. 32.8 % (42.0-52.0); HEMOGLOBIN. 10.8 g/dL (14.0-18.0); LYMPHOCYTES % 9.7 % (20.0-50.0); MEAN CORPUSCULAR VOLUME 79.1 fL (80.0-94.0); MEAN PLATELET VOLUME 10.5 fl (7.4-10.4); MONOCYTES % 7.6 % (2.0-8.0); NEUTROPHILS % 81.6 % (40.0-76.0); PLATELET 203 x1000/uL (130-400); RED BLOOD CELL COUNT 4.14 mill/uL (4.7-6.1); RED CELL DISTRIBUTION WIDTH 18.4 % (11.6-14.6)
[2021-03-07 05:52] LABS: CHLORIDE 106 mEq/L (98-107)
[2021-03-07] MEDS: MIDODRINE HCL 5MG TABLET NG SCH ×3 (06:00→22:00)
[2021-03-07] MEDS: INSULIN LISPRO 100 UNITS/ML SUBCUT SCH ×5 (06:00→23:28)
[2021-03-07] MEDS: THIAMINE HCL 100MG TABLET PO SCH (09:00)
[2021-03-07] MEDS: CLOPIDOGREL 75MG TABLET PO SCH (09:00)
[2021-03-07] MEDS: FOLIC ACID 1MG TABLET PO SCH (09:00)
[2021-03-07] MEDS ORDERED: CYANOCOBALAMIN 1000MCG/ML VIAL IM SCH (09:00)
[2021-03-07] MEDS: MULTIVITAMINS,THER W-MINERALS TABLET PO SCH (09:00)
[2021-03-07] MEDS: ASPIRIN 81MG EC TABLET PO SCH (09:00)
[2021-03-07] MEDS: DEXTROSE 5% WATER 1,000 ML IV SCH (09:45)
[2021-03-07] MEDS: ENOXAPARIN 30MG/0.3ML SYR SUBCUT SCH (16:34)
[2021-03-07] MEDS: PHENYLEPHRINE 100 MG in DEXT 5% WATER 240 ML IV PRN (18:52)
[2021-03-07] MEDS: ATORVASTATIN CALCIUM 20MG TABLET PO SCH (21:00)
[2021-03-08] VITALS (89 sets, daily range): BP systolic 57–175; BP diastolic 18–142
[2021-03-08] MEDS: IPRATROPIUM/ALBUTEROL 0.5-3(2.5)MG/3ML NEB HHN SCH ×4 (00:55→21:37)
[2021-03-08 05:57] LABS: BASOPHILS % 0.7 % (0.0-2.0); EOSINOPHILS % 1.2 % (0.0-5.0); HEMATOCRIT. 30.8 % (42.0-52.0); LYMPHOCYTES % 15.6 % (20.0-50.0); MEAN CORPUSCULAR HEMOGLOBIN 25.6 pg (28.0-32.0); MEAN PLATELET VOLUME 11.8 fl (7.4-10.4); MONOCYTES % 6.8 % (2.0-8.0); NEUTROPHILS % 75.7 % (40.0-76.0); PLATELET 224 x1000/uL (130-400); RED CELL DISTRIBUTION WIDTH 18.3 % (11.6-14.6)
[2021-03-08] MEDS: INSULIN LISPRO 100 UNITS/ML SUBCUT SCH ×3 (06:00→17:51)
[2021-03-08] MEDS: MIDODRINE HCL 5MG TABLET NG SCH ×3 (06:00→21:46)
[2021-03-08] MEDS: BLOOD SUGAR DIAGNOSTIC STRIP TEST SCH ×3 (06:00→17:51)
[2021-03-08 06:05] LABS: CHLORIDE 105 mEq/L (98-107)
[2021-03-08] MEDS: PHENYLEPHRINE 100 MG in DEXT 5% WATER 240 ML IV PRN (06:17)
[2021-03-08] MEDS: LORAZEPAM 2MG/ML CPJ IV PRN (08:53)
[2021-03-08] MEDS: FOLIC ACID 1MG TABLET PO SCH (09:24)
[2021-03-08] MEDS: THIAMINE HCL 100MG TABLET PO SCH (09:24)
[2021-03-08] MEDS: MULTIVITAMINS,THER W-MINERALS TABLET PO SCH (09:25)
[2021-03-08] MEDS: CLOPIDOGREL 75MG TABLET PO SCH (09:25)
[2021-03-08] MEDS: ASPIRIN 81MG EC TABLET PO SCH (09:25)
[2021-03-08] MEDS ORDERED: POTASSIUM CHLORIDE INJ 40 MEQ in DEXT 5% WATER 250 ML IV NR (10:30)
[2021-03-08] MEDS: DEXTROSE 5% WATER 1,000 ML IV SCH (12:45)
[2021-03-08] MEDS: ENOXAPARIN 30MG/0.3ML SYR SUBCUT SCH (15:11)
[2021-03-08] MEDS: ATORVASTATIN CALCIUM 20MG TABLET PO SCH (21:46)
[2021-03-09] VITALS (78 sets, daily range): BP systolic 81–169; BP diastolic 20–100
[2021-03-09] MEDS: PHENYLEPHRINE 100 MG in DEXT 5% WATER 240 ML IV PRN (01:48)
[2021-03-09] MEDS: MIDODRINE HCL 5MG TABLET NG SCH ×3 (05:07→21:59)
[2021-03-09] MEDS: LORAZEPAM 2MG/ML CPJ IV PRN (05:08)
[2021-03-09 05:26] LABS: CHLORIDE 103 mEq/L (98-107)
[2021-03-09 05:28] LABS: BASOPHILS % 0.3 % (0.0-2.0); EOSINOPHILS % 0.1 % (0.0-5.0); HEMATOCRIT. 35.3 % (42.0-52.0); HEMOGLOBIN. 11.3 g/dL (14.0-18.0); LYMPHOCYTES % 9.2 % (20.0-50.0); MEAN CORPUSCULAR HEMOGLOBIN 25.6 pg (28.0-32.0); MEAN CORPUSCULAR VOLUME 80.2 fL (80.0-94.0); MEAN PLATELET VOLUME 11.4 fl (7.4-10.4); MONOCYTES % 6.5 % (2.0-8.0); NEUTROPHILS % 83.9 % (40.0-76.0); PLATELET 265 x1000/uL (130-400); RED CELL DISTRIBUTION WIDTH 18.2 % (11.6-14.6)
[2021-03-09] MEDS: INSULIN LISPRO 100 UNITS/ML SUBCUT SCH ×4 (05:33→17:14)
[2021-03-09] MEDS: BLOOD SUGAR DIAGNOSTIC STRIP TEST SCH ×4 (06:00→17:14)
[2021-03-09] MEDS: IPRATROPIUM/ALBUTEROL 0.5-3(2.5)MG/3ML NEB HHN SCH ×2 (07:34→16:37)
[2021-03-09] MEDS: ASPIRIN 81MG EC TABLET PO SCH (08:55)
[2021-03-09] MEDS: MULTIVITAMINS,THER W-MINERALS TABLET PO SCH (08:55)
[2021-03-09] MEDS: CLOPIDOGREL 75MG TABLET PO SCH (08:55)
[2021-03-09] MEDS: THIAMINE HCL 100MG TABLET PO SCH (08:55)
[2021-03-09] MEDS: DEXTROSE 5% WATER 1,000 ML IV SCH (08:55)
[2021-03-09] MEDS: FOLIC ACID 1MG TABLET PO SCH (08:55)
[2021-03-09] MEDS ORDERED: DEXT 5%/0.9% NACL 1,000 ML IV SCH (12:00)
[2021-03-09 13:08] LABS: BG BASE EXCESS -7.8 mmol/L (-2.0-2.0); BG CARBOXYHEMOGLOBIN 0.2 % (0.5-1.5); BG DEOXYHEMOGLOBIN 1.8 % (0.0-5.0); BG FRACTION INSPIRED OXYGEN 32; BG HCO3 ACT 13.7 mmol/L (22.0-26.0); BG METHEMOGLOBIN 0.2 % (0.0-1.5); BG OXYGEN SATURATION 98.2 % (92.0-98.5); BG OXYHEMOGLOBIN 97.8 % (94.0-97.0); BG PCO2 19.3 mmHg (35.0-45.0); BG PO2 107.5 mmHg (75.0-100.0); BG SAMPLE SITE RIGHT RADIAL; BG TOTAL HEMOGLOBIN 11.7 g/dL (12.0-18.0); BG VENT MODE NASAL CANNULA
[2021-03-09] MEDS ORDERED: LACTULOSE 20G/30ML UDC PO NR (14:00)
[2021-03-09] MEDS: ENOXAPARIN 30MG/0.3ML SYR SUBCUT SCH (14:22)
[2021-03-09] MEDS: ATORVASTATIN CALCIUM 20MG TABLET PO SCH (21:57)
[2021-03-10] VITALS (101 sets, daily range): BP systolic 77–160; BP diastolic 42–103
[2021-03-10] MEDS: BUDESONIDE 0.5MG/2ML NEB HHN SCH ×3 (00:15→20:15)
[2021-03-10] MEDS: IPRATROPIUM/ALBUTEROL 0.5-3(2.5)MG/3ML NEB HHN SCH ×5 (00:16→23:56)
[2021-03-10] MEDS: MIDODRINE HCL 5MG TABLET NG SCH ×3 (05:58→21:13)
[2021-03-10] MEDS ORDERED: NA PHOS,M-B/NA PHOS,DI-BA ENEMA 118ML PR ONE (06:00)
[2021-03-10 06:01] LABS: BASOPHILS % 0.1 % (0.0-2.0); HEMOGLOBIN. 10.6 g/dL (14.0-18.0); LYMPHOCYTES % 7.5 % (20.0-50.0); MEAN CORPUSCULAR HEMOGLOBIN 25.7 pg (28.0-32.0); MEAN PLATELET VOLUME 11.3 fl (7.4-10.4); MONOCYTES % 6.7 % (2.0-8.0); NEUTROPHILS % 85.7 % (40.0-76.0); PLATELET 232 x1000/uL (130-400); RED BLOOD CELL COUNT 4.12 mill/uL (4.7-6.1); RED CELL DISTRIBUTION WIDTH 18.1 % (11.6-14.6)
[2021-03-10 06:09] LABS: CHLORIDE 107 mEq/L (98-107)
[2021-03-10] MEDS ORDERED: NALOXONE HCL 0.4MG/ML VIAL IV PRN (06:15)
[2021-03-10] MEDS: HYDROCODONE/ACETAMINOPHEN 5/325MG TABLET PO PRN (06:18)
[2021-03-10] MEDS: INSULIN LISPRO 100 UNITS/ML SUBCUT SCH ×4 (06:19→17:46)
[2021-03-10] MEDS: BLOOD SUGAR DIAGNOSTIC STRIP TEST SCH ×4 (06:26→17:46)
[2021-03-10] MEDS: THIAMINE HCL 100MG TABLET PO SCH (08:07)
[2021-03-10] MEDS: CLOPIDOGREL 75MG TABLET PO SCH (08:08)
[2021-03-10] MEDS: ENOXAPARIN 40MG/0.4ML SYR SUBCUT SCH (08:08)
[2021-03-10] MEDS: FOLIC ACID 1MG TABLET PO SCH (08:08)
[2021-03-10] MEDS: MULTIVITAMINS,THER W-MINERALS TABLET PO SCH (08:08)
[2021-03-10] MEDS: ASPIRIN 81MG EC TABLET PO SCH (08:08)
[2021-03-10 10:20] LABS: BG BASE EXCESS -9.9 mmol/L (-2.0-2.0); BG CARBOXYHEMOGLOBIN 0.3 % (0.5-1.5); BG DEOXYHEMOGLOBIN 2.5 % (0.0-5.0); BG FRACTION INSPIRED OXYGEN 21; BG HCO3 ACT 12.3 mmol/L (22.0-26.0); BG METHEMOGLOBIN 0.3 % (0.0-1.5); BG OXYGEN SATURATION 97.5 % (92.0-98.5); BG OXYHEMOGLOBIN 96.9 % (94.0-97.0); BG PCO2 18.5 mmHg (35.0-45.0); BG PO2 104.1 mmHg (75.0-100.0); BG SAMPLE SITE LEFT RADIAL; BG TOTAL HEMOGLOBIN 10.3 g/dL (12.0-18.0); BG VENT MODE ROOM AIR
[2021-03-10] MEDS ORDERED: SODIUM BICARBONATE 8.4% 1 MEQ/ML 50ML SYR IV NR (12:36)
[2021-03-10] MEDS ORDERED: SODIUM BICARBONATE 100 MEQ in DEXTROSE 5% WATER 1,000 ML IV SCH (14:00)
[2021-03-10] MEDS: ATORVASTATIN CALCIUM 20MG TABLET PO SCH (20:07)
[2021-03-11] VITALS (48 sets, daily range): BP systolic 38–145; BP diastolic 19–85
[2021-03-11] MEDS: BLOOD SUGAR DIAGNOSTIC STRIP TEST SCH ×4 (00:35→17:22)
[2021-03-11] MEDS: ACETAMINOPHEN 325MG TABLET PO PRN (00:40)
[2021-03-11] MEDS: INSULIN LISPRO 100 UNITS/ML SUBCUT SCH ×4 (00:45→17:22)
[2021-03-11] MEDS: MIDODRINE HCL 5MG TABLET NG SCH ×3 (05:12→21:53)
[2021-03-11 05:41] LABS: CHLORIDE 106 mEq/L (98-107)
[2021-03-11] MEDS ORDERED: POTASSIUM CHLORIDE 20MEQ/PACKET PO SCH (06:00)
[2021-03-11 08:02] LABS: PHOSPHORUS 3.1 mg/dL (2.5-4.9)
[2021-03-11] MEDS: CLOPIDOGREL 75MG TABLET PO SCH (08:33)
[2021-03-11] MEDS: MULTIVITAMINS,THER W-MINERALS TABLET PO SCH (08:33)
[2021-03-11] MEDS: FOLIC ACID 1MG TABLET PO SCH (08:33)
[2021-03-11] MEDS: ASPIRIN 81MG EC TABLET PO SCH (08:34)
[2021-03-11] MEDS: ENOXAPARIN 40MG/0.4ML SYR SUBCUT SCH (08:34)
[2021-03-11] MEDS: THIAMINE HCL 100MG TABLET PO SCH (08:34)
[2021-03-11] MEDS: BUDESONIDE 0.5MG/2ML NEB HHN SCH ×2 (08:54→20:27)
[2021-03-11] MEDS: IPRATROPIUM/ALBUTEROL 0.5-3(2.5)MG/3ML NEB HHN SCH ×3 (08:54→20:28)
[2021-03-11 09:23] LABS: BG BASE EXCESS -4.6 mmol/L (-2.0-2.0); BG CARBOXYHEMOGLOBIN 0.5 % (0.5-1.5); BG DEOXYHEMOGLOBIN 9.1 % (0.0-5.0); BG FRACTION INSPIRED OXYGEN 21; BG HCO3 ACT 17.3 mmol/L (22.0-26.0); BG METHEMOGLOBIN 0.2 % (0.0-1.5); BG OXYGEN SATURATION 90.8 % (92.0-98.5); BG OXYHEMOGLOBIN 90.2 % (94.0-97.0); BG PCO2 23.2 mmHg (35.0-45.0); BG PO2 59.1 mmHg (75.0-100.0); BG SAMPLE SITE RIGHT RADIAL; BG TOTAL HEMOGLOBIN 11.1 g/dL (12.0-18.0); BG VENT MODE ROOM AIR
[2021-03-11] MEDS: SODIUM CHLORIDE 0.45% 1,000 ML IV SCH (09:32)
[2021-03-11 09:35] LABS: BASOPHILS % 0.3 % (0.0-2.0); EOSINOPHILS % 0.1 % (0.0-5.0); HEMATOCRIT. 28.9 % (42.0-52.0); LYMPHOCYTES % 9.2 % (20.0-50.0); MEAN CORPUSCULAR HEMOGLOBIN 26.6 pg (28.0-32.0); MEAN CORPUSCULAR VOLUME 78.8 fL (80.0-94.0); MEAN PLATELET VOLUME 10.8 fl (7.4-10.4); MONOCYTES % 4.5 % (2.0-8.0); NEUTROPHILS % 85.9 % (40.0-76.0); PLATELET 209 x1000/uL (130-400); RED BLOOD CELL COUNT 3.66 mill/uL (4.7-6.1); RED CELL DISTRIBUTION WIDTH 18.3 % (11.6-14.6)
[2021-03-11 09:59] LABS: HEMOGLOBIN. 9.7 g/dL (14.0-18.0)
[2021-03-11] MEDS ORDERED: POTASSIUM CHLORIDE INJ 40 MEQ in DEXT 5% WATER 250 ML IV SCH (11:00)
[2021-03-11] MEDS: CEFEPIME 1,000 MG in DEXTROSE 5% WATER 50 ML IV SCH (13:28)
[2021-03-11] MEDS: ACETYLCYSTEINE 100MG/ML 10% VIAL 4ML INH SCH (15:57)
[2021-03-11 19:16] LABS: CLARITY URINE CLOUDY (CLEAR); COLOR URINE DARK YELLOW (YELLOW); KETONES URINE NEGATIVE (NEGATIVE); LEUKOCYTE ESTERASE URINE 2+ (NEGATIVE); NITRITE URINE NEGATIVE (NEGATIVE); OCCULT BLOOD URINE 3+ (NEGATIVE); PH URINE 5.5 (4.5-8.0); PROTEIN URINE 2+ (NEGATIVE); SPECIFIC GRAVITY URINE 1.024 (1.005-1.030)
[2021-03-11] MEDS: ATORVASTATIN CALCIUM 20MG TABLET PO SCH (21:52)
[2021-03-12] VITALS (49 sets, daily range): BP systolic 85–132; BP diastolic 47–86
[2021-03-12] MEDS: CEFEPIME 1,000 MG in DEXTROSE 5% WATER 50 ML IV SCH ×2 (00:41→12:12)
[2021-03-12] MEDS: SODIUM CHLORIDE 0.45% 1,000 ML IV SCH ×2 (00:42→18:20)
[2021-03-12] MEDS: BLOOD SUGAR DIAGNOSTIC STRIP TEST SCH ×5 (00:42→23:23)
[2021-03-12] MEDS: ACETYLCYSTEINE 100MG/ML 10% VIAL 4ML INH SCH ×2 (00:48→08:48)
[2021-03-12] MEDS: IPRATROPIUM/ALBUTEROL 0.5-3(2.5)MG/3ML NEB HHN SCH ×4 (00:49→20:43)
[2021-03-12 05:26] LABS: HEMATOCRIT. 31.4 % (42.0-52.0); MEAN CORPUSCULAR HEMOGLOBIN 25.9 pg (28.0-32.0); MEAN CORPUSCULAR VOLUME 81.2 fL (80.0-94.0); PLATELET 221 x1000/uL (130-400); RED BLOOD CELL COUNT 3.86 mill/uL (4.7-6.1); RED CELL DISTRIBUTION WIDTH 19.3 % (11.6-14.6)
[2021-03-12 05:28] LABS: CHLORIDE 103 mEq/L (98-107)
[2021-03-12 05:36] LABS: PHOSPHORUS 4.9 mg/dL (2.5-4.9)
[2021-03-12] MEDS: INSULIN LISPRO 100 UNITS/ML SUBCUT SCH ×4 (05:55→17:33)
[2021-03-12] MEDS: MIDODRINE HCL 5MG TABLET NG SCH ×3 (05:57→21:25)
[2021-03-12] MEDS ORDERED: SODIUM POLYSTYRENE SULFONATE 15 G/60 ML BOT PO SCH (07:00)
[2021-03-12] MEDS: CLOPIDOGREL 75MG TABLET PO SCH (08:30)
[2021-03-12] MEDS: ASPIRIN 81MG EC TABLET PO SCH (08:30)
[2021-03-12] MEDS: MULTIVITAMINS,THER W-MINERALS TABLET PO SCH (08:30)
[2021-03-12] MEDS: ENOXAPARIN 40MG/0.4ML SYR SUBCUT SCH (08:30)
[2021-03-12] MEDS: THIAMINE HCL 100MG TABLET PO SCH (08:30)
[2021-03-12] MEDS: FOLIC ACID 1MG TABLET PO SCH (08:30)
[2021-03-12] MEDS: BUDESONIDE 0.5MG/2ML NEB HHN SCH (08:49)
[2021-03-12 09:23] LABS: PLATELET ESTIMATE NORMAL
[2021-03-12] MEDS: CITRIC ACID/SODIUM CITRATE SOLN 30ML UDC PO SCH ×3 (12:12→21:25)
[2021-03-12] MEDS: HYDROCODONE/ACETAMINOPHEN 5/325MG TABLET PO PRN ×2 (13:55→21:26)
[2021-03-12] MEDS ORDERED: IOHEXOL-350 100 ML BOTTLE ONE (15:25)
[2021-03-12] MEDS: ATORVASTATIN CALCIUM 20MG TABLET PO SCH (21:25)
[2021-03-13] VITALS (53 sets, daily range): BP systolic 75–138; BP diastolic 53–89
[2021-03-13] MEDS: ACETYLCYSTEINE 100MG/ML 10% VIAL 4ML INH SCH ×4 (00:33→22:00)
[2021-03-13] MEDS: IPRATROPIUM/ALBUTEROL 0.5-3(2.5)MG/3ML NEB HHN SCH ×5 (00:34→21:15)
[2021-03-13] MEDS: CEFEPIME 1,000 MG in DEXTROSE 5% WATER 50 ML IV SCH ×2 (00:59→13:10)
[2021-03-13] MEDS: CITRIC ACID/SODIUM CITRATE SOLN 30ML UDC PO SCH ×3 (05:37→22:22)
[2021-03-13] MEDS: MIDODRINE HCL 5MG TABLET NG SCH ×3 (05:37→22:22)
[2021-03-13] MEDS: INSULIN LISPRO 100 UNITS/ML SUBCUT SCH ×4 (06:00→17:46)
[2021-03-13] MEDS: BLOOD SUGAR DIAGNOSTIC STRIP TEST SCH ×3 (06:04→17:46)
[2021-03-13 06:24] LABS: BASOPHILS % 0.1 % (0.0-2.0); HEMATOCRIT. 27.2 % (42.0-52.0); MEAN CORPUSCULAR HEMOGLOBIN 26.5 pg (28.0-32.0); MEAN CORPUSCULAR VOLUME 79.9 fL (80.0-94.0); MEAN PLATELET VOLUME 11.1 fl (7.4-10.4); MONOCYTES % 6.9 % (2.0-8.0); PLATELET 199 x1000/uL (130-400); RED BLOOD CELL COUNT 3.41 mill/uL (4.7-6.1); RED CELL DISTRIBUTION WIDTH 19.1 % (11.6-14.6)
[2021-03-13 06:31] LABS: CHLORIDE 103 mEq/L (98-107)
[2021-03-13 06:36] LABS: PHOSPHORUS 2.6 mg/dL (2.5-4.9)
[2021-03-13] MEDS: ENOXAPARIN 40MG/0.4ML SYR SUBCUT SCH (08:35)
[2021-03-13] MEDS: THIAMINE HCL 100MG TABLET PO SCH (08:35)
[2021-03-13] MEDS: CLOPIDOGREL 75MG TABLET PO SCH (08:35)
[2021-03-13] MEDS: ASPIRIN 81MG EC TABLET PO SCH (08:35)
[2021-03-13] MEDS: FOLIC ACID 1MG TABLET PO SCH (08:36)
[2021-03-13] MEDS: MULTIVITAMINS,THER W-MINERALS TABLET PO SCH (08:36)
[2021-03-13] MEDS: MORPHINE SULFATE 2 MG/ML CPJ (NOT FOR IM USE) IV PRN ×2 (11:04→20:27)
[2021-03-13] MEDS: ATORVASTATIN CALCIUM 20MG TABLET PO SCH (21:15)
[2021-03-13] MEDS: ALTEPLASE 2MG/VIAL INJ SCH (23:18)
[2021-03-14] VITALS (47 sets, daily range): BP systolic 23–123; BP diastolic 52–81
[2021-03-14] MEDS: IPRATROPIUM/ALBUTEROL 0.5-3(2.5)MG/3ML NEB HHN SCH ×3 (01:09→13:54)
[2021-03-14] MEDS: ACETYLCYSTEINE 100MG/ML 10% VIAL 4ML INH SCH ×3 (01:09→22:00)
[2021-03-14] MEDS: CEFEPIME 1,000 MG in DEXTROSE 5% WATER 50 ML IV SCH ×2 (01:16→12:45)
[2021-03-14 05:35] LABS: HEMATOCRIT. 30.9 % (42.0-52.0); HEMOGLOBIN. 10.3 g/dL (14.0-18.0); MEAN CORPUSCULAR HEMOGLOBIN 26.4 pg (28.0-32.0); MEAN CORPUSCULAR VOLUME 79.8 fL (80.0-94.0); PLATELET 204 x1000/uL (130-400); RED BLOOD CELL COUNT 3.88 mill/uL (4.7-6.1); RED CELL DISTRIBUTION WIDTH 19.1 % (11.6-14.6)
[2021-03-14 05:48] LABS: CHLORIDE 105 mEq/L (98-107)
[2021-03-14] MEDS: INSULIN LISPRO 100 UNITS/ML SUBCUT SCH ×4 (06:00→17:49)
[2021-03-14] MEDS: BLOOD SUGAR DIAGNOSTIC STRIP TEST SCH ×4 (06:00→17:44)
[2021-03-14] MEDS: CITRIC ACID/SODIUM CITRATE SOLN 30ML UDC PO SCH ×3 (06:51→22:26)
[2021-03-14] MEDS: MIDODRINE HCL 5MG TABLET NG SCH ×3 (06:51→22:26)
[2021-03-14] MEDS: MORPHINE SULFATE 2 MG/ML CPJ (NOT FOR IM USE) IV PRN (07:03)
[2021-03-14 08:09] LABS: BG BASE EXCESS -0.1 mmol/L (-2.0-2.0); BG CARBOXYHEMOGLOBIN 0.2 % (0.5-1.5); BG DEOXYHEMOGLOBIN 12.9 % (0.0-5.0); BG FRACTION INSPIRED OXYGEN 30; BG HCO3 ACT 23.2 mmol/L (22.0-26.0); BG METHEMOGLOBIN 0.3 % (0.0-1.5); BG OXYHEMOGLOBIN 86.6 % (94.0-97.0); BG PCO2 32.8 mmHg (35.0-45.0); BG PH 7.467 (7.350-7.450); BG PO2 56.1 mmHg (75.0-100.0); BG SAMPLE SITE RIGHT BRACHIAL; BG TOTAL HEMOGLOBIN 10.9 g/dL (12.0-18.0); BG VENT MODE MASK - VENTI
[2021-03-14] MEDS: THIAMINE HCL 100MG TABLET PO SCH (09:00)
[2021-03-14] MEDS: ENOXAPARIN 30MG/0.3ML SYR SUBCUT SCH (09:06)
[2021-03-14] MEDS: FOLIC ACID 1MG TABLET PO SCH (09:06)
[2021-03-14] MEDS: ASPIRIN 81MG EC TABLET PO SCH (09:06)
[2021-03-14] MEDS: MULTIVITAMINS,THER W-MINERALS TABLET PO SCH (09:07)
[2021-03-14] MEDS: CLOPIDOGREL 75MG TABLET PO SCH (09:07)
[2021-03-14 12:26] LABS: PLATELET ESTIMATE NORMAL
[2021-03-14] MEDS: ATORVASTATIN CALCIUM 20MG TABLET PO SCH (21:28)
[2021-03-14] MEDS: ALTEPLASE 2MG/VIAL INJ SCH (22:14)
[2021-03-15] VITALS (40 sets, daily range): BP systolic 76–119; BP diastolic 20–81
[2021-03-15] MEDS: INSULIN LISPRO 100 UNITS/ML SUBCUT SCH ×4 (01:20→17:46)
[2021-03-15] MEDS: BLOOD SUGAR DIAGNOSTIC STRIP TEST SCH ×4 (01:20→17:46)
[2021-03-15] MEDS: CEFEPIME 1,000 MG in DEXTROSE 5% WATER 50 ML IV SCH ×2 (01:25→12:02)
[2021-03-15 05:36] LABS: CHLORIDE 108 mEq/L (98-107)
[2021-03-15 05:39] LABS: HEMATOCRIT. 30.4 % (42.0-52.0); HEMOGLOBIN. 10.1 g/dL (14.0-18.0); MEAN CORPUSCULAR HEMOGLOBIN 26.3 pg (28.0-32.0); MEAN CORPUSCULAR VOLUME 79.2 fL (80.0-94.0); MEAN PLATELET VOLUME 10.9 fl (7.4-10.4); PLATELET 180 x1000/uL (130-400); RED BLOOD CELL COUNT 3.85 mill/uL (4.7-6.1); RED CELL DISTRIBUTION WIDTH 19.7 % (11.6-14.6)
[2021-03-15] MEDS: ACETYLCYSTEINE 100MG/ML 10% VIAL 4ML INH SCH (06:00)
[2021-03-15] MEDS: IPRATROPIUM/ALBUTEROL 0.5-3(2.5)MG/3ML NEB HHN SCH ×4 (06:00→13:38)
[2021-03-15] MEDS: CITRIC ACID/SODIUM CITRATE SOLN 30ML UDC PO SCH (06:21)
[2021-03-15] MEDS: MIDODRINE HCL 5MG TABLET NG SCH ×2 (06:21→13:11)
[2021-03-15] MEDS ORDERED: POTASSIUM CHLORIDE 20MEQ TABLET SR PO NR (08:00)
[2021-03-15] MEDS: CLOPIDOGREL 75MG TABLET PO SCH (08:20)
[2021-03-15] MEDS: THIAMINE HCL 100MG TABLET PO SCH (08:20)
[2021-03-15] MEDS: FOLIC ACID 1MG TABLET PO SCH (08:20)
[2021-03-15] MEDS: ENOXAPARIN 30MG/0.3ML SYR SUBCUT SCH (08:21)
[2021-03-15] MEDS: ASPIRIN 81MG EC TABLET PO SCH (08:21)
[2021-03-15 09:08] LABS: BG BASE EXCESS 5.4 mmol/L (-2.0-2.0); BG CARBOXYHEMOGLOBIN 0.3 % (0.5-1.5); BG DEOXYHEMOGLOBIN 2.9 % (0.0-5.0); BG FRACTION INSPIRED OXYGEN 40; BG HCO3 ACT 27.7 mmol/L (22.0-26.0); BG METHEMOGLOBIN 0.1 % (0.0-1.5); BG OXYGEN SATURATION 97.1 % (92.0-98.5); BG OXYHEMOGLOBIN 96.7 % (94.0-97.0); BG PH 7.555 (7.350-7.450); BG PO2 94.1 mmHg (75.0-100.0); BG SAMPLE SITE RIGHT BRACHIAL; BG TOTAL HEMOGLOBIN 9.8 g/dL (12.0-18.0); BG VENT MODE MASK - VENTI
[2021-03-15 09:24] LABS: PHOSPHORUS 2.6 mg/dL (2.5-4.9)
[2021-03-15 12:37] LABS: NUCLEATED RED BLOOD CELLS 8 /100 WBC; PLATELET ESTIMATE NORMAL
[2021-03-15] MEDS ORDERED: METRONIDAZOLE 500MG TABLET PO SCH (14:00)
== END 2021-03-15 21:54 | DRG 45 ==
LOC: ER 11:14 → 5EST 13:51 → ENRESERV 14:28 → 5EST 15:57 → CVICU 02-28 07:11
PROVIDERS: ADMIT Internal Medicine; ATTEND Internal Medicine
PROC: 02HV33Z Insertion of Infusion Device into Superior Vena Cava, Percutaneous Approach (ICD-10-PCS; 2021-02-18)
PROC: B548ZZA Ultrasonography of Superior Vena Cava, Guidance (ICD-10-PCS; 2021-02-18)
PROC: 4A10X4Z Monitoring of Central Nervous Electrical Activity, External Approach (ICD-10-PCS; principal; 2021-02-22)
DX: I63.512 Cerebral infarction due to unspecified occlusion or stenosis of left middle cerebral artery (principal); J96.00 Acute respiratory failure, unspecified whether with hypoxia or hypercapnia; R57.0 Cardiogenic shock; N17.0 Acute kidney failure with tubular necrosis; J69.0 Pneumonitis due to inhalation of food and vomit; G92 Toxic encephalopathy; A41.9 Sepsis, unspecified organism; I50.23 Acute on chronic systolic (congestive) heart failure; I11.0 Hypertensive heart disease with heart failure; I42.0 Dilated cardiomyopathy; R13.10 Dysphagia, unspecified; I50.9 Heart failure, unspecified; J44.1 Chronic obstructive pulmonary disease with (acute) exacerbation; F14.10 Cocaine abuse, uncomplicated; D50.9 Iron deficiency anemia, unspecified; E78.5 Hyperlipidemia, unspecified; I34.0 Nonrheumatic mitral (valve) insufficiency; I44.0 Atrioventricular block, first degree; I95.89 Other hypotension; R74.01 Elevation of levels of liver transaminase levels; F10.10 Alcohol abuse, uncomplicated; Y90.9 Presence of alcohol in blood, level not specified; I70.0 Atherosclerosis of aorta; J44.0 Chronic obstructive pulmonary disease with (acute) lower respiratory infection; R47.01 Aphasia; R47.1 Dysarthria and anarthria; E78.00 Pure hypercholesterolemia, unspecified; E87.2 Acidosis; F17.210 Nicotine dependence, cigarettes, uncomplicated; I27.21 Secondary pulmonary arterial hypertension; I44.7 Left bundle-branch block, unspecified; R18.8 Other ascites; T50.905A Adverse effect of unspecified drugs, medicaments and biological substances, initial encounter; Z51.5 Encounter for palliative care; Z66 Do not resuscitate; Z79.84 Long term (current) use of oral hypoglycemic drugs; Z86.73 Personal history of transient ischemic attack (TIA), and cerebral infarction without residual deficits; Z79.899 Other long term (current) drug therapy; Z82.49 Family history of ischemic heart disease and other diseases of the circulatory system; Z83.3 Family history of diabetes mellitus; Y92.89 Other specified places as the place of occurrence of the external cause; Z78.1 Physical restraint status; R33.9 Retention of urine, unspecified; N28.0 Ischemia and infarction of kidney
CPT/HCPCS: 36415; 36600; 70551; 71045; 71275; 74018; 74174; 74176; 76770; 76937; 80048; 80053; 80061; 80076; 80305; 80307; 80320; 80329; 81003; 82140; 82375; 82550; 82553; 82607; 82746; 82805; 82962; 83036; 83605; 83735; 83880; 84100; 84132; 84145; 84439; 84443; 84481; 84484; 85025; 85379; 92610; 93005; 93306; 93880; 93971; 94640; 97110; 97162; 97164; 97166; 97168; 97530; 99291; A6261; C1725; J0692; J1160; J1200; J1250; J1265; J1630; J1650; J1815; J2060; J2270; J2370; J2543; J2997; J3420; J3480; J3490; J7040; J7042; J7060; J7070; J7608; J7626; Q9967; A4315; G0480